=== PATIENT | female | born 1955 | race Caucasian/White ===

== ENCOUNTER 2019-12-29 06:45 | Outpatient (CLI) | payer OTHER, SELFPAY ==
[2019-12-29 07:37] LABS: Hemoglobin A1C 8.5 % (<5.7)
[2019-12-29 07:39] LABS: Alanine Aminotransferase 29 U/L (4-35); Aspartate Amino Transferase 23 U/L (14-36); Blood Urea Nitrogen 22 mg/dL (7-17); Calcium 9.2 mg/dL (8.4-10.2); Carbon Dioxide 26 mmol/L (22-30); Chloride 100 mmol/L (98-107); Cholesterol 164 mg/dL (0-200); Estimated Glomerular Filt Rate > 60; Glucose 194 mg/dL (65-105); HDL Direct 41 mg/dL; Potassium 4.3 mmol/L (3.4-5.0); Sodium 136 mmol/L (137-145); Triglycerides 119 mg/dL (<150)
[2019-12-29 07:49] LABS: LDL Cholesterol Direct 97 mg/dL
[2019-12-29 08:08] LABS: Free T4 Free Thyroxine 1.61 ng/mL (0.78-2.19)
== END 2019-12-29 06:46 | disposition home or self-care (01) ==
PROVIDERS: PCP Family Medicine; Visit Provider Family Medicine
DX: E78.2 Mixed hyperlipidemia (principal); E11.9 Type 2 diabetes mellitus without complications; E03.2 Hypothyroidism due to medicaments and other exogenous substances
CPT/HCPCS: 36415; 80048; 80061; 83036; 84439; 84443; 84450; 84460

== ENCOUNTER 2020-03-26 10:04 | Emergency (ER) | payer OTHER, SELFPAY ==
--- NOTE | 2020-03-26 10:15 | ED.NAVMDI ---
HPI - Nausea/Vomiting/Diarrhea General Chief complaint: Nausea/Vomiting/Diarrhea Stated complaint: nausea Time Seen by Provider: 03/26/20 10:15 Source: patient Mode of arrival: ambulatory Limitations: no limitations History of Present Illness HPI Narrative: Leanna Thorpe is a 64 yo female with a PMH of HTN, DM, high cholesterol, who comes to express care with complaints of nausea vomiting diarrhea. Diarrhea started last Saturday and then she developed nausea. She stopped taking her Metformin on Saturday night. Her dose of Metformin is 2000 mg a day, she does not check her blood sugar. Today and the express care her blood sugar was 296 and she is unable to eat because of the nausea. Related Data Home Medications Medication Instructions Recorded Confirmed atorvastatin 10 mg tablet 10 mg PO .COMPLEX 12/31/19 Allergies Allergy/AdvReac Type Severity Reaction Status Date / Time MEPERIDINE HCL AdvReac Unknown NAUSEA Uncoded 06/25/19 15:56 Review of Systems Review of Systems: Narrative: CONSTITUTIONAL: Denies fever, chills, sweats. EYES: Denies visual changes, redness, discharge. ENT: Denies rhinorrhea, congestion, sore throat, otalgia. CARDIOVASCULAR: Denies chest pain, palpitations, edema. RESPIRATORY: Denies dyspnea, wheezing, cough GASTROINTESTINAL: Denies abdominal pain,has nausea, vomiting, diarrhea. GENITOURINARY: Denies dysuria, hematuria, abnormal discharge SKIN: Denies rash or itching. NEUROLOGIC: Denies numbness, or focal weakness. PSYCHIATRIC: Denies anxiety or depression. FOR[facility]LY [facility], [facility] Past Medical History Medical History (Updated 03/26/20 @ 10:43 by Solange Rubin CNP) Essential (primary) hypertension Hepatitis C antibody test negative History of bone density study (~05/14/14) History of radioactive iodine thyroid ablation (~05/11/16) Iatrogenic hypothyroidism Metabolic syndrome Mixed hyperlipidemia MVP (mitral valve prolapse) Normal colonoscopy (~09/13/11) Type 2 diabetes mellitus without complication Family History Family History Mother Family history of elevated blood lipids Family history of malignant neoplasm Grandparent Carcinoma of colon, Onset Age: 66 Father Family history of diabetes mellitus in first degree relative, Onset Age: 78 Family history of coronary artery disease, Onset Age: 78 Patient's father is Family history of cardiovascular disease, Onset Age: 78 Family history of genetic disorder Diabetes mellitus, Onset Age: 78 Other Family history of malignant neoplasm of breast Family history of malignant neoplasm of male breast Social History Social History Smoking status: Former smoker Second hand tobacco smoke exposure: No Alcohol intake: current Gender identity (if verbalized by the patient): Female Comments At time of signature, I agree with nursing past medical, surgical, social and family history. There is no relevant family history pertinent to the presenting complaint. Exam Narrative: Exam Narrative: GENERAL: This is a well-nourished, well-developed patient, in mild distress. HEAD: normocephalic, atraumatic. EYES: Sclera clear/white. Vision is grossly intact. EARS: External ears normal, Hearing grossly intact. NOSE: External nose normal without nasal discharge, nares without redness, no rhinorrhea. THROAT: Mucous membranes moist, NECK: Neck supple, CARDIOVASCULAR: Regular rate and rhythm without murmurs, gallops, or rubs. RESPIRATORY: Clear to auscultation. Breath sounds equal bilaterally. No wheezes, rales, or rhonchi. GASTROINTESTINAL: Abdomen soft, SKIN: warm, intact with no suspicious lesions or rash, good texture and turgor. NEURO: awake, alert, and oriented to person, place and time. There were no obvious focal neurologic abnormalities. Steady gait EXTREMITIES: Normal range of motion. BACK:
[2020-03-26 10:16] VITALS: BP 153/77; PULSE 72; RESP 20; TEMP 37.1; O2SAT 100
[2020-03-26 10:20] LABS: Glucose Point of Care 296 (65-105)
== END 2020-03-26 10:45 | disposition home or self-care (01) ==
PROVIDERS: Emergency Provider Nurse Practitioner; PCP Family Medicine
DX: R11.2 Nausea with vomiting, unspecified (principal); T38.3X5A Adverse effect of insulin and oral hypoglycemic [antidiabetic] drugs, initial encounter; E11.9 Type 2 diabetes mellitus without complications; Z87.891 Personal history of nicotine dependence; I10 Essential (primary) hypertension; E78.2 Mixed hyperlipidemia; E78.00 Pure hypercholesterolemia, unspecified
CPT/HCPCS: 82948; 99213; G0463

== ENCOUNTER 2020-03-26 21:19 | Emergency (ER) | payer OTHER, SELFPAY ==
[2020-03-26 21:27] VITALS: BP 155/81; PULSE 80; RESP 18; TEMP 37.7; O2SAT 93
[2020-03-26] MEDS: SODIUM CHLORIDE 0.9% IV 1,000 ML 999 ML IV CONT ×2 (21:59→23:41)
[2020-03-26 22:01] VITALS: BP 109/51; PULSE 72; RESP 18; O2SAT 93
[2020-03-26 22:02] LABS: Basophils Percent Auto 0.3 % (0.2-1.2); Hemoglobin 13.4 g/dL (12.0-15.0); Immature Granulocyte Absolute 0.04 K/mm3 (0.00-0.031); Immature Granulocyte Percent A 0.7 % (0-0.5); Lymphocytes Absolute Auto 1.08 K/mm3 (0.9-3.2); Lymphocytes Percent Auto 17.9 % (18.3-44.2); Mean Corpuscular HGB Conc 35.3 g/dl (32-36); Mean Corpuscular Hemoglobin 29.5 pg (26-34); Mean Corpuscular Volume 83.7 fl (80-100); Mean Platelet Volume 9.7 fl (7.4-10.4); Monocytes Absolute Auto 0.5 K/mm3 (0.1-0.6); Monocytes Percent Auto 8.1 % (2.6-8.5); Neutrophils Absolute Auto 4.4 K/mm3 (1.3-6.7); Platelet Count Result 169 k/mm3 (150-375); Red Blood Count 4.54 M/mm3 (4.2-5.4); Red Cell Distribution Width 12.2 % (11.5-14.5); White Blood Count 6.1 K/mm3 (4.5-10.0)
[2020-03-26 22:15] LABS: Alanine Aminotransferase 43 U/L (4-35); Albumin Level 3.9 g/dL (3.5-5.1); Alkaline Phosphatase 84 U/L (38-126); Anion Gap 6 mmol/L (8-16); Aspartate Amino Transferase 37 U/L (14-36); Bilirubin,Total 1.3 mg/dL (0.2-1.3); Blood Urea Nitrogen 13 mg/dL (7-17); Calcium 8.8 mg/dL (8.4-10.2); Carbon Dioxide 31 mmol/L (22-30); Chloride 89 mmol/L (98-107); Estimated CRCL calculation 79 ml/min; Estimated Glomerular Filt Rate > 60; Glucose 197 mg/dL (65-105); Lipase 42 U/L (23-300); Potassium 3.5 mmol/L (3.4-5.0); Sodium 126 mmol/L (137-145)
--- NOTE | 2020-03-26 22:36 | ED.NAVMDI ---
HPI - Nausea/Vomiting/Diarrhea General Chief complaint: Nausea/Vomiting/Diarrhea Stated complaint: diarrhea, nausea, dehydrated Time Seen by Provider: 03/26/20 21:24 History of Present Illness HPI Narrative: Patient is a 64-year-old female who presents the ER with feeling unwell. Patient reports 1 week ago she began having diarrhea as well as nausea and vomiting. That then abated and she went through the week just feeling more fatigued. She has been unable to eat or drink due to lack of an appetite and feeling slightly nauseated but she said no additional vomiting. No known sick contacts. No loss of taste or smell. No runny nose/sore throat/productive cough. She is without dyspnea. Related Data Home Medications Medication Instructions Recorded Confirmed atorvastatin 10 mg tablet 10 mg PO .COMPLEX 12/31/19 Allergies Allergy/AdvReac Type Severity Reaction Status Date / Time MEPERIDINE HCL AdvReac Unknown NAUSEA Uncoded 03/26/20 21:51 Review of Systems Review of Systems: All systems reviewed & are unremarkable except as noted in HPI and below Constitutional: Constitutional: Reports chills, Reports fatigue and Denies fever(s) ENT: Denies nasal congestion and Denies sore throat Cardiovascular: Cardiovascular: Denies chest pain and Denies radiating jaw, neck or arm pain Respiratory: Respiratory: Denies cough, Denies dyspnea and Denies wheezing Gastrointestinal: Gastrointestinal: Denies abdominal pain, Reports diarrhea, Reports nausea and Reports vomiting Genitourinary: Genitourinary: Denies nocturia and Denies dysuria [facility] Past Medical History Medical History (Updated 03/26/20 @ 23:54 by Myles Neil MD) Essential (primary) hypertension Hepatitis C antibody test negative History of bone density study (~05/14/14) History of radioactive iodine thyroid ablation (~05/11/16) Iatrogenic hypothyroidism Metabolic syndrome Mixed hyperlipidemia MVP (mitral valve prolapse) Normal colonoscopy (~09/13/11) Type 2 diabetes mellitus without complication Surgical History Surgical History (Updated 03/26/20 @ 22:37 by Myles Neil MD) History of cholecystectomy Family History Family History Mother Family history of elevated blood lipids Family history of malignant neoplasm Grandparent Carcinoma of colon, Onset Age: 66 Father Family history of diabetes mellitus in first degree relative, Onset Age: 78 Family history of coronary artery disease, Onset Age: 78 Patient's father is Family history of cardiovascular disease, Onset Age: 78 Family history of genetic disorder Diabetes mellitus, Onset Age: 78 Other Family history of malignant neoplasm of breast Family history of malignant neoplasm of male breast Social History Social History Smoking status: Former smoker Second hand tobacco smoke exposure: No Alcohol intake: current Gender identity (if verbalized by the patient): Female Exam Narrative: Exam Narrative: GENERAL: Well-appearing, well-nourished, and in no acute distress. HEAD: Normocephalic, atraumatic. CHEST: Clear to auscultation. No respiratory distress. HEART: Regular rate and rhythm. Normal peripheral pulses. ABDOMEN: Soft, nontender, nondistended, normal active bowel sounds. EXTREMITIES: Normal range of motion. No edema. SKIN: Warm, dry, no rash. NEURO: Alert and oriented x3. PSYCH: Normal mood and affect. Course Course Emergency Course: Patient informed of results. Still feeling some fatigue and would like a second liter of fluid which I feel is fair. Will discharge home. Vital Signs Vital signs: Vital Signs Temperature 99.8 F H 03/26/20 21:27 Pulse Rate 80 03/26/20 21:27 Respiratory Rate 18 03/26/20 21:27 Blood Pressure 155/81 H 03/26/20 21:27 Pulse Oximetry 93 03/26/20 21:27 Temperature 99.8 F
--- NOTE | 2020-03-26 22:40 | PC.NURSE ---
Requested urine- patient said she could not. Told her will will have her try in a coupe minutes
[2020-03-26 23:05] VITALS: BP 141/56; PULSE 71; RESP 23; O2SAT 93
[2020-03-26 23:12] LABS: Add Urine Microscopic? NO; Appearance Urine Clear (Clear); Bilirubin Urine Negative (Negative); Blood Urine Negative (Negative); Color Urine Yellow (Yellow); Glucose Urine UA Negative (Negative); Ketones Urine Negative (Negative); Leukocyte Esterase Ur Negative LEU/UL (Negative); Nitrate Urine Negative (Negative); Protein Urine Negative (Negative); Urobilinogen Urine Negative mg/dL (<2.0)
[2020-03-27] MEDS: ONDANSETRON INJ 4 MG/2 ML VIAL IV PUSH (00:01)
[2020-03-27 00:03] VITALS: BP 142/74; PULSE 76; RESP 15; O2SAT 95
[2020-03-27 00:51] VITALS: BP 145/78; PULSE 76; RESP 18; O2SAT 98
--- NOTE | 2020-04-23 10:12 | PC.NURSE ---
NS fluids stopped at 0041 on 03/27/2020
== END 2020-03-27 00:40 | disposition home or self-care (01) ==
PROVIDERS: Emergency Provider Emergency Medicine; PCP Family Medicine
DX: B34.9 Viral infection, unspecified (principal); I10 Essential (primary) hypertension; E03.2 Hypothyroidism due to medicaments and other exogenous substances; E78.2 Mixed hyperlipidemia; E88.81 Metabolic syndrome and other insulin resistance; I34.1 Nonrheumatic mitral (valve) prolapse; E11.9 Type 2 diabetes mellitus without complications; Z87.891 Personal history of nicotine dependence; Z79.84 Long term (current) use of oral hypoglycemic drugs
CPT/HCPCS: 36415; 80053; 81003; 83690; 85025; 96361; 96374; 99284; J2405; J7030

== ENCOUNTER 2020-03-28 10:55 | Emergency (ER) | payer OTHER, SELFPAY ==
--- NOTE | ~2020-03-28 | CT_ITS ---
EXAMINATION: CT abdomen pelvis w con DATE: 03/28/2020 11:50 INDICATION: Diarrhea. Abdominal discomfort. TECHNIQUE: Computed tomography (CT) of the abdomen and pelvis was performed with 100 mL Omnipaque 350 intravenous contrast. Automated exposure control and iterative reconstruction technique were employe d. The dose-length product was 1236.38 mGy-cm. COMPARISON: CT abdomen and pelvis 05/17/2015 FINDINGS: The visualized portions of the lung bases demonstrate mild atelectasis. There is mild bronc hiectasis in right middle lobe. No pleural effusion. The heart size is normal. No pericardial effusio n. There is a small sliding hiatal hernia. The liver and spleen are normal. There are changes of chol ecystectomy. The pancreas, adrenal glands, and kidneys are normal. There is diverticulosis of the col on without evidence of diverticulitis. There are no dilated loops of bowel. The appendix is normal. T here are no pathologically enlarged lymph nodes. There is no free intraperitoneal fluid. There is mil d lumbar spondylosis. IMPRESSION: 1. Small sliding hiatal hernia. Reviewed, dictated and finalized at location A.
[2020-03-28 11:09] VITALS: BP 124/74; PULSE 71; RESP 18; TEMP 36.4; O2SAT 97
--- NOTE | 2020-03-28 11:10 | ED.GENADULT ---
HPI - General Adult General Chief complaint: Weakness Stated complaint: diarrhea, weak Time Seen by Provider: 03/28/20 11:04 Source: patient History of Present Illness HPI narrative: Patient is a 64 y/o female complaining of intermittent diarrhea for about 1 week. She state that she had approximately 5 episodes of diarrhea during last 24 hours. She states that her diarrhea is watery with no blood. She took Imodium which helped some with her diarrhea. She also has some lower abdominal discomfort which she attributed to diarrhea. She has no nausea or vomiting. She feel weak in general, although she is able to ambulate. Related Data Home Medications Medication Instructions Recorded Confirmed atorvastatin 10 mg tablet 10 mg PO .COMPLEX 12/31/19 Allergies Allergy/AdvReac Type Severity Reaction Status Date / Time MEPERIDINE HCL AdvReac Unknown NAUSEA Uncoded 03/28/20 11:53 Review of Systems Constitutional: Constitutional: Reports as per HPI, Denies chills, Denies fever(s), Denies headache(s), Reports malaise and Reports weakness Eyes: Eyes: Denies blurry vision ENT: Denies headache(s) and Denies neck pain Cardiovascular: Cardiovascular: Denies chest pain and Denies dyspnea Respiratory: Respiratory: Denies cough and Denies dyspnea Gastrointestinal: Gastrointestinal: Reports abdominal pain, Reports diarrhea, Denies nausea and Denies vomiting Genitourinary: Genitourinary: Denies hematuria and Denies dysuria Musculoskeletal: Musculoskeletal: Denies back pain and Denies neck pain Neurologic: Denies headache(s) and Denies weakness PMFSH Past Medical History Medical History Essential (primary) hypertension Hepatitis C antibody test negative History of bone density study (~05/14/14) History of radioactive iodine thyroid ablation (~05/11/16) Iatrogenic hypothyroidism Metabolic syndrome Mixed hyperlipidemia MVP (mitral valve prolapse) Normal colonoscopy (~09/13/11) Type 2 diabetes mellitus without complication Surgical History Surgical History History of cholecystectomy Family History Family History Mother Family history of elevated blood lipids Family history of malignant neoplasm Grandparent Carcinoma of colon, Onset Age: 66 Father Family history of diabetes mellitus in first degree relative, Onset Age: 78 Family history of coronary artery disease, Onset Age: 78 Patient's father is Family history of cardiovascular disease, Onset Age: 78 Family history of genetic disorder Diabetes mellitus, Onset Age: 78 Other Family history of malignant neoplasm of breast Family history of malignant neoplasm of male breast Social History Social History Smoking status: Former smoker Second hand tobacco smoke exposure: No Alcohol intake: current Gender identity (if verbalized by the patient): Female Exam Const: General: no acute distress and well developed Orientation/consciousness: oriented to person, oriented to place, oriented to time and patient oriented x3 HENMT: Head: normocephalic Ears: external ears normal General nose exam: Normal external nose present Eyes: General: appearance normal, both eyes and all related structures Conjunctivae: conjunctivae normal Neck: Neck: normal visual inspection and full ROM Chest: Chest palpation & inspection: normal inspection of the chest and no tenderness Resp: Effort & Inspection: normal respiratory effort Auscultation: clear to auscultation bilaterally Cardio: Rate: regular rate Rhythm: regular rhythm GI: GI Palp: No abdominal tenderness and Yes Soft to palpation Skin: General skin exam: normal color and turgor normal Neuro: General: oriented to person, oriented to place, oriented to time and patient orien
[2020-03-28 11:13] VITALS: PULSE 68
--- NOTE | 2020-03-28 11:14 | ECG_ITS ---
Measurements Intervals [place] Rate: 67 P: 56 MN: 141 QRS: -34 QRSD: 90 T: 2 QT: 357 QTc: 377 Interpretive Statements SINUS RHYTHM LEFT AXIS DEVIATION DELAYED PRECORDIAL R/S TRANSITION BORDERLINE T WAVE ABNORMALITY- INFERIOR LEADS BASELINE ARTIFACT- I, II, III, AVR, AVL, AVF, V4-V6 BORDERLINE ECG Electronically Signed On 03-28-2020 11:37:16 CDT by Dakota Kaminski D.O.
[2020-03-28] MEDS: SODIUM CHLORIDE 0.9% IV 1,000 ML 999 ML IV CONT (11:18)
[2020-03-28 11:21] LABS: Basophils Percent Auto 0.2 % (0.2-1.2); Hemoglobin 13.6 g/dL (12.0-15.0); Immature Granulocyte Absolute 0.06 K/mm3 (0.00-0.031); Lymphocytes Absolute Auto 1.17 K/mm3 (0.9-3.2); Lymphocytes Percent Auto 19.4 % (18.3-44.2); Mean Corpuscular HGB Conc 34.9 g/dl (32-36); Mean Corpuscular Hemoglobin 28.9 pg (26-34); Mean Platelet Volume 9.4 fl (7.4-10.4); Monocytes Absolute Auto 0.5 K/mm3 (0.1-0.6); Monocytes Percent Auto 8.8 % (2.6-8.5); Neutrophils Absolute Auto 4.3 K/mm3 (1.3-6.7); Neutrophils Percent Auto 70.6 % (45.5-73.1); Platelet Count Result 193 k/mm3 (150-375); Red Cell Distribution Width 12.1 % (11.5-14.5)
[2020-03-28 11:33] LABS: Alanine Aminotransferase 42 U/L (4-35); Alkaline Phosphatase 81 U/L (38-126); Anion Gap 10 mmol/L (8-16); Aspartate Amino Transferase 38 U/L (14-36); Bilirubin,Total 1.2 mg/dL (0.2-1.3); Blood Urea Nitrogen 12 mg/dL (7-17); Calcium 8.8 mg/dL (8.4-10.2); Carbon Dioxide 28 mmol/L (22-30); Chloride 93 mmol/L (98-107); Estimated CRCL calculation 70 ml/min; Estimated Glomerular Filt Rate > 60; Glucose 192 mg/dL (65-105); Potassium 3.6 mmol/L (3.4-5.0); Sodium 131 mmol/L (137-145)
[2020-03-28 12:14] VITALS: BP 127/62; PULSE 61; RESP 18; O2SAT 100
--- NOTE | 2020-03-28 12:22 | PC.NURSE ---
Patient ambulated to bathroom without difficulty and in no distress
[2020-03-28 22:56] LABS: SARS-CoV-2 RNA PCR Negative
== END 2020-03-28 13:18 | disposition home or self-care (01) ==
PROVIDERS: Emergency Provider Emergency Medicine; PCP Family Medicine
DX: K52.9 Noninfective gastroenteritis and colitis, unspecified (principal); R53.1 Weakness; Z20.828 Contact with and (suspected) exposure to other viral communicable diseases; I10 Essential (primary) hypertension; E03.2 Hypothyroidism due to medicaments and other exogenous substances; E88.81 Metabolic syndrome and other insulin resistance; E78.2 Mixed hyperlipidemia; I34.1 Nonrheumatic mitral (valve) prolapse; E11.9 Type 2 diabetes mellitus without complications; Z79.84 Long term (current) use of oral hypoglycemic drugs; Z87.891 Personal history of nicotine dependence
CPT/HCPCS: 36415; 74177; 80053; 85025; 87635; 93005; 96360; 99284; C9803; J7030; Q9967; U0003

== ENCOUNTER 2020-03-31 07:16 | Emergency (ER) | payer OTHER, SELFPAY ==
[2020-03-31 07:24] VITALS: BP 134/71; PULSE 69; RESP 16; TEMP 36.4; O2SAT 96
[2020-03-31] MEDS: SODIUM CHLORIDE 0.9% IV 1,000 ML 999 ML IV CONT (07:35)
[2020-03-31 07:37] LABS: Basophils Percent Auto 0.2 % (0.2-1.2); Hematocrit 36.7 % (37.0-47.0); Hemoglobin 13.1 g/dL (12.0-15.0); Immature Granulocyte Percent A 1.1 % (0-0.5); Lymphocytes Percent Auto 10.9 % (18.3-44.2); Mean Corpuscular HGB Conc 35.7 g/dl (32-36); Mean Corpuscular Hemoglobin 29.3 pg (26-34); Mean Corpuscular Volume 82.1 fl (80-100); Mean Platelet Volume 8.9 fl (7.4-10.4); Monocytes Absolute Auto 0.7 K/mm3 (0.1-0.6); Monocytes Percent Auto 7.1 % (2.6-8.5); Neutrophils Absolute Auto 7.4 K/mm3 (1.3-6.7); Neutrophils Percent Auto 80.7 % (45.5-73.1); Platelet Count Result 217 k/mm3 (150-375); Red Blood Count 4.47 M/mm3 (4.2-5.4); Red Cell Distribution Width 12.1 % (11.5-14.5); White Blood Count 9.2 K/mm3 (4.5-10.0)
--- NOTE | 2020-03-31 07:38 | PC.NURSE ---
Patient unable to give urine sample at this time, patient declines straight cath.
[2020-03-31] MEDS: PROMETHAZINE HCL 25 MG/ML AMPUL 12.5 MG IV PUSH (07:45)
[2020-03-31 07:48] LABS: Alanine Aminotransferase 49 U/L (4-35); Albumin Level 3.6 g/dL (3.5-5.1); Alkaline Phosphatase 91 U/L (38-126); Anion Gap 10 mmol/L (8-16); Aspartate Amino Transferase 44 U/L (14-36); Bilirubin,Total 1.9 mg/dL (0.2-1.3); Blood Urea Nitrogen 13 mg/dL (7-17); Calcium 8.4 mg/dL (8.4-10.2); Carbon Dioxide 31 mmol/L (22-30); Chloride 91 mmol/L (98-107); Estimated CRCL calculation 70 ml/min; Estimated Glomerular Filt Rate > 60; Glucose 189 mg/dL (65-105); Lipase 20 U/L (23-300); Potassium 3.6 mmol/L (3.4-5.0); Sodium 132 mmol/L (137-145)
[2020-03-31 08:08] LABS: Monoscreen Negative (Negative); Negative Monotest Control Negative (Negative); Positive Monotest Control Positive (Positive)
[2020-03-31 09:01] LABS: Add Urine Microscopic? YES; Appearance Urine Clear (Clear); Bilirubin Urine Negative (Negative); Blood Urine Negative (Negative); Color Urine Yellow (Yellow); Glucose Urine UA Negative (Negative); Ketones Urine Trace mg/dL (Negative); Leukocyte Esterase Ur Negative LEU/UL (Negative); Nitrate Urine Negative (Negative); Protein Urine Negative (Negative); RBC Urine 0-2 /hpf (0-2); Specific Grav Ur 1.006 (1.001-1.035); Squamous Epithelial Cell Urine Rare /hpf (Few); Urobilinogen Urine Negative mg/dL (<2.0)
--- NOTE | 2020-03-31 09:25 | ED.NAVMDI ---
HPI - Nausea/Vomiting/Diarrhea General Chief complaint: Nausea/Vomiting/Diarrhea Stated complaint: n/v/d, weakness Time Seen by Provider: 03/31/20 07:26 History of Present Illness HPI Narrative: Patient is a 64-year-old female who presents ER with nausea and diarrhea. Patient has been seen twice for this in the last week. She has had unremarkable lab work and an unremarkable CT scan. She reports that she just has persistent nausea and feels like she cannot eat. She will take Imodium which will slow down her diarrhea will recur. She reports 5 stools yesterday. Occasional dizziness when standing up. No fevers or chills or sweats. No abdominal pain or urinary symptoms. Related Data Home Medications Medication Instructions Recorded Confirmed atorvastatin 10 mg tablet 10 mg PO .COMPLEX 12/31/19 Allergies Allergy/AdvReac Type Severity Reaction Status Date / Time MEPERIDINE HCL AdvReac Unknown NAUSEA Uncoded 03/31/20 07:31 Review of Systems Review of Systems: All systems reviewed & are unremarkable except as noted in HPI and below Constitutional: Constitutional: Denies chills, Reports fatigue and Denies fever(s) Gastrointestinal: Gastrointestinal: Denies abdominal pain, Reports diarrhea, Reports nausea and Denies vomiting PMFSH Past Medical History Medical History Essential (primary) hypertension Hepatitis C antibody test negative History of bone density study (~05/14/14) History of radioactive iodine thyroid ablation (~05/11/16) Iatrogenic hypothyroidism Metabolic syndrome Mixed hyperlipidemia MVP (mitral valve prolapse) Normal colonoscopy (~09/13/11) Type 2 diabetes mellitus without complication Surgical History Surgical History History of cholecystectomy Family History Family History Mother Family history of elevated blood lipids Family history of malignant neoplasm Grandparent Carcinoma of colon, Onset Age: 66 Father Family history of diabetes mellitus in first degree relative, Onset Age: 78 Family history of coronary artery disease, Onset Age: 78 Patient's father is Family history of cardiovascular disease, Onset Age: 78 Family history of genetic disorder Diabetes mellitus, Onset Age: 78 Other Family history of malignant neoplasm of breast Family history of malignant neoplasm of male breast Social History Social History Smoking status: Former smoker Second hand tobacco smoke exposure: No Alcohol intake: current Gender identity (if verbalized by the patient): Female Exam Narrative: Exam Narrative: GENERAL: Fatigued-appearing, well-nourished, and in no acute distress. HEAD: Normocephalic, atraumatic. ENT: Mucous membranes moist. CHEST: Clear to auscultation. No respiratory distress. HEART: Regular rate and rhythm. Normal peripheral pulses. ABDOMEN: Soft, nontender, nondistended. EXTREMITIES: Normal range of motion. No edema. NEURO: Alert and oriented x3. PSYCH: Normal mood and affect. Course Course Emergency Course: Unremarkable evaluation. Still with mild transaminitis. Likely indicates viral GI illness. Patient has increased neutrophil percentage but no leukocytosis. Given persistent symptoms will start on Cipro Flagyl for home and give her some Phenergan. Patient ambulatory without issue here. Could not provide stool sample. Discussed with Dr. Glass who is in agreement with tx plan. Request to add on omeprazole 40mg. Vital Signs Vital signs: Vital Signs Temperature 97.5 F L 03/31/20 07:24 Pulse Rate 69 03/31/20 07:24 Respiratory Rate 16 03/31/20 07:24 Blood Pressure 134/71 03/31/20 07:24 Pulse Oximetry 96 03/31/20 07:24 Temperature 97.5 F L 03/31/20 07:24 Pulse Rate 72 03/31/20 09:32 Respiratory
[2020-03-31 09:32] VITALS: BP 105/57; PULSE 72; RESP 18; O2SAT 93
--- NOTE | 2020-03-31 09:34 | PC.NURSE ---
Patient walked to bathroom without difficulty and in no distress. patient reports that the nausea medication did help. Patient given water to drink at this time.
== END 2020-03-31 10:11 | disposition home or self-care (01) ==
PROVIDERS: Emergency Provider Emergency Medicine; PCP Family Medicine
DX: K52.9 Noninfective gastroenteritis and colitis, unspecified (principal); I10 Essential (primary) hypertension; E03.2 Hypothyroidism due to medicaments and other exogenous substances; E88.81 Metabolic syndrome and other insulin resistance; E78.2 Mixed hyperlipidemia; I34.1 Nonrheumatic mitral (valve) prolapse; E11.9 Type 2 diabetes mellitus without complications; Z87.891 Personal history of nicotine dependence; Z79.84 Long term (current) use of oral hypoglycemic drugs
CPT/HCPCS: 36415; 80053; 81001; 83690; 85025; 86308; 96361; 96374; 99284; J2550; J7030

== ENCOUNTER 2020-04-02 08:41 | Inpatient (IN) | payer OTHER, MEDICARE, SELFPAY ==
--- NOTE | ~2020-04-02 | US_ITS ---
EXAMINATION: US right upper quadrant EXAM DATE: 04/03/2020 08:56 INDICATION: Elevated liver enzymes . TECHNIQUE: Multiple grayscale and Doppler images of the abdomen right upper quadrant were obtained (b y a technologist who performed the scan) and subsequently reviewed. Correlation is made to abdomen pe lvis CT 03/28/2020. FINDINGS: The pancreatic head and body are normal in appearance. The pancreatic tail is not visualized. There is echogenic liver parenchyma with poor penetration, hepatic steatosis. There are no focal liver le sions identified. There is no evidence of intrahepatic biliary duct dilation. Portal venous flow w as seen in the hepatopedal, normal direction and has normal Doppler waveform. No right-sided hydrone phrosis. Common bile duct measures 5 mm, which is normal. The gallbladder fossa is unremarkable. IMPRESSION: 1. Hepatic steatosis. Reviewed, dictated and finalized at location A. IMPRESSION: 1. Hepatic steatosis.
[2020-04-02 08:55] VITALS: BP 158/79; PULSE 64; RESP 18; TEMP 36.4; O2SAT 93
--- NOTE | 2020-04-02 09:01 | ED.NAVMDI ---
HPI - Nausea/Vomiting/Diarrhea General Chief complaint: Abdominal Pain Stated complaint: some kind of gi thing Time Seen by Provider: 04/02/20 08:53 Source: patient Mode of arrival: ambulatory Limitations: no limitations History of Present Illness HPI Narrative: Patient is a 64-year-old female complaining of nausea vomiting diarrhea x1 week but states that it started 2 weeks ago subsided and now it is worse. Patient describes her diarrhea as loose watery nonbloody. Patient currently denies any vomiting but nauseated. Patient denies any abdominal pain but had abdominal cramping earlier after going the bathroom. Denies any fever. Patient states she is seeing her doctor for this and was advised that she needs to be admitted. Denies any recent use of antibiotics or hospitalization. Related Data Home Medications Medication Instructions Recorded Confirmed atorvastatin 10 mg tablet 10 mg PO .COMPLEX 12/31/19 Allergies Allergy/AdvReac Type Severity Reaction Status Date / Time MEPERIDINE HCL AdvReac Unknown NAUSEA Uncoded 03/31/20 07:31 Review of Systems Review of Systems: All systems reviewed & are unremarkable except as noted in HPI and below Constitutional: Constitutional: Denies body ache(s), Denies chills, Denies excessive sweating, Denies fatigue, Denies fever(s), Denies headache(s), Denies lethargy, Denies malaise, Denies weakness and Denies weight loss Eyes: Eyes: Denies blurry vision, Denies change in vision and Denies loss of vision ENT: Denies dizziness, Denies ear discharge, Denies headache(s), Denies lip swelling, Denies epistaxis, Denies nasal congestion, Denies neck pain, Denies throat swelling and Denies tongue swelling Cardiovascular: Cardiovascular: Denies chest pain, Denies chest pain at rest, Denies chest pain with activity, Denies diaphoresis, Denies rapid heart rate, Denies edema, Denies irregular heart rhythm, Denies lightheadedness, Denies palpitations, Denies dyspnea and Denies dyspnea on exertion Respiratory: Respiratory: Denies chest congestion, Denies cough, Denies hemoptysis, Denies dyspnea and Denies dyspnea on exertion Gastrointestinal: Gastrointestinal: Denies abdominal pain, Denies melena, Denies hematochezia and Denies hematemesis Musculoskeletal: Musculoskeletal: Denies abnormal gait, Denies deformity, Denies joint swelling, Denies limited range of motion, Denies neck pain and Denies numbness Neurologic: Denies Abnormal speech present, Denies abnormal gait, Denies confusion, Denies dizziness, Denies headache(s), Denies focal weakness, Denies loss of vision, Denies numbness, Denies Other visual disturbances, Denies Sensory deficit (Neuro) and Denies weakness Psychiatric: Psychiatric: Denies confusion, Denies depression, Denies auditory hallucinations, Denies homicidal ideation and Denies suicidal ideation Endocrine: Endocrine: Denies cold intolerance, Denies excessive sweating, Denies fatigue, Denies heat intolerance and Denies palpitations Hematologic/Lymphatic: Hematologic/Lymphatic: Denies easy bleeding and Denies easy bruising Allergic/Immunologic: Allergic/Immunologic: Denies lip swelling, Denies throat swelling and Denies tongue swelling PMFSH Past Medical History Medical History Essential (primary) hypertension Hepatitis C antibody test negative History of bone density study (~05/14/14) History of radioactive iodine thyroid ablation (~05/11/16) Iatrogenic hypothyroidism Metabolic syndrome Mixed hyperlipidemia MVP (mitral valve prolapse) Normal colonoscopy (~09/13/11) Type 2 diabetes mellitus without complication Surgical History Surgical History History of cholecystectomy Family History Family History Mother Family history of elevated blood lipids Family history of malignant neoplasm Grandparent Carcinoma of colo
[2020-04-02] MEDS: SODIUM CHLORIDE 0.9% IV 1,000 ML 999 ML IV CONT (09:11)
[2020-04-02] MEDS: ONDANSETRON INJ 4 MG/2 ML VIAL IV PUSH (09:11)
[2020-04-02 09:14] LABS: Basophils Percent Auto 0.3 % (0.2-1.2); Eosinophils Percent Auto 0.1 % (0-4.4); Hematocrit 40.6 % (37.0-47.0); Immature Granulocyte Absolute 0.14 K/mm3 (0.00-0.031); Immature Granulocyte Percent A 1.8 % (0-0.5); Lymphocytes Absolute Auto 1.39 K/mm3 (0.9-3.2); Lymphocytes Percent Auto 17.8 % (18.3-44.2); Mean Corpuscular HGB Conc 34.5 g/dl (32-36); Mean Corpuscular Hemoglobin 29.4 pg (26-34); Mean Corpuscular Volume 85.1 fl (80-100); Mean Platelet Volume 8.8 fl (7.4-10.4); Monocytes Absolute Auto 0.6 K/mm3 (0.1-0.6); Monocytes Percent Auto 7.2 % (2.6-8.5); Neutrophils Absolute Auto 5.7 K/mm3 (1.3-6.7); Neutrophils Percent Auto 72.8 % (45.5-73.1); Platelet Count Result 299 k/mm3 (150-375); Red Blood Count 4.77 M/mm3 (4.2-5.4); Red Cell Distribution Width 12.2 % (11.5-14.5); White Blood Count 7.8 K/mm3 (4.5-10.0)
[2020-04-02 09:22] LABS: Alanine Aminotransferase 52 U/L (4-35); Albumin Level 3.8 g/dL (3.5-5.1); Alkaline Phosphatase 100 U/L (38-126); Anion Gap 11 mmol/L (8-16); Aspartate Amino Transferase 40 U/L (14-36); Bilirubin,Total 1.1 mg/dL (0.2-1.3); Blood Urea Nitrogen 13 mg/dL (7-17); Calcium 8.5 mg/dL (8.4-10.2); Carbon Dioxide 30 mmol/L (22-30); Chloride 95 mmol/L (98-107); Estimated CRCL calculation 69 ml/min; Estimated Glomerular Filt Rate > 60; Glucose 155 mg/dL (65-105); Lipase 54 U/L (23-300); Potassium 3.2 mmol/L (3.4-5.0); Sodium 136 mmol/L (137-145)
[2020-04-02 11:18] VITALS: BP 127/61; PULSE 61; RESP 18; O2SAT 93
[2020-04-02] MEDS: POTASSIUM CHLORIDE 20 MEQ PACKET (FOR LIQUID) 40 MEQ PO (11:19)
[2020-04-02 12:10] LABS: Add Urine Microscopic? YES; Appearance Urine Clear (Clear); Bacteria Urine Trace /hpf; Bilirubin Urine Negative (Negative); Blood Urine Negative (Negative); Color Urine Yellow (Yellow); Glucose Urine UA Negative (Negative); Ketones Urine Trace mg/dL (Negative); Leukocyte Esterase Ur Trace LEU/UL (Negative); Mucus Urine Rare /lpf; Nitrate Urine Negative (Negative); Protein Urine Negative (Negative); Squamous Epithelial Cell Urine Rare /hpf (Few); Urobilinogen Urine Negative mg/dL (<2.0); WBC Urine 0-3 /hpf
--- NOTE | 2020-04-02 12:25 | PC.NURSE ---
This patient, Leanna Thorpe, was admitted to [facility] Surg Room 321-. Patient/family oriented to hospital policies and general routines including ID bracelet, bed and alarms, visiting hours, pain management, procedures, bathroom and other care routines, personal items, smoking policy, room service/diet, and visiting hours Patient/Family are encouraged to report perceived risks to care and to ask questions if they do not understand what they are told or what they should do.
[2020-04-02 12:32] VITALS: BMI 36.7
[2020-04-02 12:36] VITALS: BP 144/71; PULSE 64; RESP 16; TEMP 36.5; O2SAT 93; BMI 36.1
[2020-04-02] MEDS: KCL 20 MEQ/D5/0.45% SOD CHL 1,000 ML 125 ML IV CONT (12:42)
[2020-04-02 14:00] VITALS: BP 140/74; PULSE 60; RESP 16; TEMP 37.1; O2SAT 96
[2020-04-02] MEDS: METOCLOPRAMIDE HCL INJ 10 MG/2 ML VIAL IV PUSH (14:31)
--- NOTE | 2020-04-02 15:55 | PM.IMHP ---
H&P: HPI History of Present Illness Date/Time: 04/02/20 15:55 Chief complaint: dehydration/n/v/diarrhea Narrative: Leanna Thorpe is a 64 year old female Who has been feeling ill for at least 2 weeks now. I see a note in the system from 03/26/2020 where the patient had nausea vomiting diarrhea. She tells me this is been going on for about 2 weeks now. She said this past Saturday she did check for COVID and was found to be negative. Patient stated she has been on metformin but has been many years since she has started that. Has not typically had any problems with the metformin. Patient was seen in the [facility] on 03/26/2021 her blood sugar was 296 and was nauseated did not take her metformin. Patient has had elevated liver enzymes in the past due to her statin. The patient was also seen in the emergency room here by Dr. Neil on 03/26/2020 and was diagnosed with acute viral syndrome. She was prescribed Zofran at that time. The patient then came back to ER on 03/28/2020 where she was having some intermittent diarrhea. She has not had any sick contacts. She is also having some lower abdominal discomfort. Patient tells me she did notice any blood in her stool but the last couple days they have been darker. The patient was seen again in the emergency room on 03/31/2020 with nausea and diarrhea. Her labs were unremarkable at that time and had a unremarkable CT scan according to the ED records. She was taking some Imodium which did slow down the diarrhea some. However the patient has been having fiber more stools a day. And sometimes having accidents due to not being able to make it to the bathroom on time. She denies being out of the country are being around any other sick contacts. She denies the possibility that this could be food poisoning. As she has not been out to eat. The patient has been feeling weak and dizzy. She stated that she has lost 10 lb in 2 weeks. She has been afebrile. The patient was then started on Cipro and Flagyl at that time. She is also given promethazine as well for nausea vomiting. The patient stated that the Zofran was not working and that the Flagyl and Cipro just made her feel worse. Patient says that her stomach settles down but then when she eats or drinks something it makes it worse. The patient has not had a colonoscopy in approximately 8 years. The patient return to the emergency room today. The patient is just nauseated today but no vomiting. She has abdominal cramping prior to going to the bathroom. Patient's past him was found to be 3.2 today she had IV fluids with potassium in and had potassium replacement. Her sodium is slightly low at 136. Blood sugar 155. Her AST is 40 and ALT is 52 which is a about stable from what it has been. She has not been able to take her medications due to the nausea. Her CT scan of the abdomen and pelvis from 03/28/2020 which just read as a small hiatal hernia. GI specialist has been consulted. It is Dr. melgoza. IV fluids were ordered in the emergency room as well as Zofran and potassium. Patient was admitted as observation on 04/02/2020 Review of Systems Review of Systems: All systems reviewed & are unremarkable except as noted in HPI and below Constitutional: Constitutional: Reports as per HPI and Reports no additional constitutional complaints Eyes: Eyes: Reports as per HPI and Reports no additional eye complaints ENT: Reports system reviewed and no additional complaints, except as documented and Reports Normal hearing present Cardiovascular: Cardiovascular: Reports no additional cardiovascular complaints Respiratory: Respiratory: Reports no additional respiratory complaints and Reports no additional respiratory complaints Gastrointestinal: Gastrointestinal: Reports as per HPI and Reports no additional gastrointestinal complaints Musculoskeletal: Musculoskeletal: Reports no additional musculoskeletal complaints Integumentary/Breasts: Skin/Breast: Repo
[2020-04-02 17:29] LABS: Glucose Point of Care 178 (65-105)
[2020-04-02] MEDS: METOCLOPRAMIDE HCL INJ 10 MG/2 ML VIAL 5 MG IV PUSH ×2 (18:33→23:32)
[2020-04-02 20:00] VITALS: PULSE 55
[2020-04-02] MEDS: PANTOPRAZOLE SODIUM IV 40 MG VIAL IV PUSH (20:17)
[2020-04-02 20:26] LABS: Glucose Point of Care 188 (65-105)
[2020-04-02 22:00] VITALS: BP 139/52; PULSE 56; RESP 18; TEMP 36.8; O2SAT 93
[2020-04-03] VITALS (9 sets, daily range): BP systolic 139–162; BP diastolic 68–82; PULSE 51–64; RESP 16–20; TEMP 36.3–36.9; O2SAT 92–96
[2020-04-03] MEDS: METOCLOPRAMIDE HCL INJ 10 MG/2 ML VIAL 5 MG IV PUSH ×2 (05:59→12:01)
[2020-04-03] MEDS: LEVOTHYROXINE SODIUM INJ 100 MCG/5 ML VIAL 62.5 MCG IV PUSH (05:59)
[2020-04-03 06:25] LABS: Basophils Percent Auto 0.3 % (0.2-1.2); Eosinophils Percent Auto 0.3 % (0-4.4); Hematocrit 35.4 % (37.0-47.0); Hemoglobin 11.9 g/dL (12.0-15.0); Immature Granulocyte Absolute 0.19 K/mm3 (0.00-0.031); Immature Granulocyte Percent A 3.1 % (0-0.5); Lymphocytes Absolute Auto 1.83 K/mm3 (0.9-3.2); Lymphocytes Percent Auto 29.9 % (18.3-44.2); Mean Corpuscular HGB Conc 33.6 g/dl (32-36); Mean Corpuscular Hemoglobin 28.9 pg (26-34); Mean Corpuscular Volume 85.9 fl (80-100); Mean Platelet Volume 8.4 fl (7.4-10.4); Monocytes Absolute Auto 0.5 K/mm3 (0.1-0.6); Monocytes Percent Auto 8.8 % (2.6-8.5); Neutrophils Absolute Auto 3.5 K/mm3 (1.3-6.7); Neutrophils Percent Auto 57.6 % (45.5-73.1); Platelet Count Result 279 k/mm3 (150-375); Red Blood Count 4.12 M/mm3 (4.2-5.4); Red Cell Distribution Width 12.2 % (11.5-14.5); White Blood Count 6.1 K/mm3 (4.5-10.0)
[2020-04-03 06:43] LABS: Alanine Aminotransferase 60 U/L (4-35); Albumin Level 2.9 g/dL (3.5-5.1); Alkaline Phosphatase 85 U/L (38-126); Anion Gap 7 mmol/L (8-16); Aspartate Amino Transferase 78 U/L (14-36); Bilirubin,Total 0.8 mg/dL (0.2-1.3); Blood Urea Nitrogen 10 mg/dL (7-17); CRP 3.6 mg/dL (<1.0); Calcium 8.1 mg/dL (8.4-10.2); Carbon Dioxide 28 mmol/L (22-30); Chloride 101 mmol/L (98-107); Estimated CRCL calculation 70 ml/min; Estimated Glomerular Filt Rate > 60; Glucose 134 mg/dL (65-105); Magnesium 2.4 mg/dL (1.6-2.3); Potassium 3.6 mmol/L (3.4-5.0); Sodium 136 mmol/L (137-145)
[2020-04-03 06:51] LABS: Hemoglobin A1C 7.8 % (<5.7)
[2020-04-03 07:09] LABS: Lactic Acid Reflex 0.8 mmol/L (0.7-2.1)
[2020-04-03 07:39] LABS: Hepatitis B Surface Antigen Negative (Negative)
[2020-04-03 07:45] LABS: HAV RESULT Negative (Negative); Hepatitis B Core IgM Result Negative (Negative)
[2020-04-03 07:57] LABS: Hepatitis C Virus Antibody Negative (Negative)
[2020-04-03] MEDS: LACTATED RINGERS 1,000 ML 70 ML IV CONT ×2 (08:12→22:16)
[2020-04-03] MEDS: PANTOPRAZOLE SODIUM IV 40 MG VIAL IV PUSH (08:21)
--- NOTE | 2020-04-03 09:26 | WPDGICN ---
Assessment and Plan Assessment and plan (1) Nausea vomiting and diarrhea: Code(s): R11.2 - Nausea with vomiting, unspecified; R19.7 - Diarrhea, unspecified Status: Acute Assessment and Plan: Patient with significant nausea and diarrhea. Most consistent with infectious etiology. Viral infection not excluded. Plan is for stool cultures. IV fluid rehydration as it appears she has become dehydrated. Empiric antibiotics may be of some benefit. Will give Lomotil to control the diarrhea. GI endoscopy will be deferred unless symptoms fail to improve in a reasonable fashion. We will follow with you. (2) Type 2 diabetes mellitus without complication: Code(s): E11.9 - Type 2 diabetes mellitus without complications Status: Chronic (3) Essential (primary) hypertension: Code(s): I10 - Essential (primary) hypertension Status: Acute (4) Iatrogenic hypothyroidism: Code(s): E03.2 - Hypothyroidism due to medicaments and other exogenous substances Status: Chronic (5) Elevated LFTs: Code(s): R79.89 - Other specified abnormal findings of blood chemistry Status: Acute Assessment and Plan: Elevated liver function test appear to be nonspecifically elevated with acute illness. Plan is to check hepatitis serologies. Continue monitor LFTs. Patient has a previous history of cholecystectomy and I understand gallbladder ultrasound is in progress with review results when available. GI Consult Note Consult date/time: 04/03/20 09:26 HPI: Leanna Thorpe is a 64 year old female I am asked to see at the request of the hospitalist service. Patient reports 2 week history of illness. She has had significant nausea along with significant profuse diarrhea over the last 2 weeks. This progressed to the point where it is watery in she has poor control. She has been to express care as well as her primary care service on several occasions. COVID testing was performed in excluded. She was given empiric trial of Cipro and Flagyl which she took and Saturday. However because of worsening symptoms she presented the emergency room and was admitted with dehydration. Patient denies any bleeding or weight loss. She denies any fever. She has some modest lower abdominal discomfort. There has been no recent change in her medications. She has had no recent travel. No exotic intake. She has no known sick contacts. Past medical history is significant for diabetes and elevated cholesterol. Medications include metformin. She did obtain some relief with Imodium as an outpatient. Since admission hospitals been given a trial of Reglan. She has been unable to maintain any significant oral intake. Review of Systems Review of Systems: All systems reviewed & are unremarkable except as noted in HPI and below PMFSH Past Medical History Medical History Essential (primary) hypertension Hepatitis C antibody test negative History of bone density study (~05/14/14) History of radioactive iodine thyroid ablation (~05/11/16) Iatrogenic hypothyroidism Metabolic syndrome Mixed hyperlipidemia MVP (mitral valve prolapse) repeat echo was negative for mitral valve prolapse Normal colonoscopy (~09/13/11) Palpitation Person under investigation for COVID-19 found to be negative Type 2 diabetes mellitus without complication Surgical History Surgical History History of cholecystectomy S/P tonsillectomy and adenoidectomy Family History Family History (Updated 04/02/20 @ 16:16 by Cortney Lindsay NP) Mother Family history of elevated blood lipids Family history of malignant neoplasm Grandparent Carcinoma of colon, Onset Age: 66 Father Family history of diabetes mellitus in first degree relative, Onset Age: 78 Family history of coronary artery disease, Onset Age: 78 Patie
[2020-04-03 10:21] LABS: Glucose Point of Care 141 (65-105)
[2020-04-03 10:21] LABS: Glucose Point of Care 135 (65-105)
[2020-04-03 10:29] LABS: IFOB Positive Control Positive; Immunochemical Fecal Occult Bl Negative (N)
[2020-04-03 12:37] LABS: Glucose Point of Care 166 (65-105)
[2020-04-03] MEDS: ATORVASTATIN 10 MG TABLET PO (12:53)
[2020-04-03] MEDS: lisinopriL 20 MG TABLET PO (12:53)
--- NOTE | 2020-04-03 14:27 | PM.IMPN ---
Progress Note: A&P Assessment and Plan (1) Nausea vomiting and diarrhea: Code(s): R11.2 - Nausea with vomiting, unspecified; R19.7 - Diarrhea, unspecified Status: Acute Assessment and Plan: this has been going on for at least 2 weeks. ? infectious viral, bacterial. ? IBS or Inflammatory bowel ? side effect of medications IV fluids await stool culture Oral cipro and flagyl on hold STATIN AND METFORMIN ON HOLD (2) Hypokalemia: Code(s): E87.6 - Hypokalemia Status: Acute Assessment and Plan: Replace as necessary. (3) Type 2 diabetes mellitus without complications: Code(s): E11.9 - Type 2 diabetes mellitus without complications Status: Acute Assessment and Plan: Accu-Cheks AC and HS with sliding scale insulin. hold metformin, pt is not eating much (4) Mixed hyperlipidemia: Code(s): E78.2 - Mixed hyperlipidemia Status: Acute Assessment and Plan: patient's liver enzymes are mildly elevated. HOLD STATIN. HEP panel is negative (5) Hypothyroidism, iatrogenic: Code(s): E03.2 - Hypothyroidism due to medicaments and other exogenous substances Status: Acute Assessment and Plan: continue oral levothyroixine (6) Essential (primary) hypertension: Code(s): I10 - Essential (primary) hypertension Status: Acute Assessment and Plan: Restart pts Bp medications Subjective Date/time seen: 04/03/20 14:27 Interval history: Pt has been to ED with nausea and vomiting and diarrhea. Pt had labs and ct abdo which were unremarkable. Pts LFts are high ferrtin and crp are high. protein and albumin are low. mg is high. hbaic is over 7. Pt states she is having some loose stool today and mild lower abdominal cramps but nausea is better. Pt denies history of foreign travel or sick contacts. Pt denies IBS or Inflammatory bowel. Pt has a history of DM, HLD and hypothyroidism. Pt seen by GI today. Pt was tested for covid and was found to be negative. Review of Systems Review of Systems: All systems reviewed & are unremarkable except as noted in HPI and below Exam Const: Other: unwell tired dry tongue Chest: Chest palpation & inspection: normal inspection of the chest Resp: Effort & Inspection: normal respiratory effort Auscultation: clear to auscultation bilaterally Percussion: percussion normal Cardio: Palpation: normal PMI Rate: regular rate Rhythm: regular rhythm Heart sounds: S1 normal heart sound present and S2 normal heart sound present Peripheral pulses: Peripheral pulses 2+ throughout GI: Inspection: normal to inspection Neuro: General: oriented to person, oriented to place, oriented to time and patient oriented x3 Cranial nerves: Yes Equal, round and reactive pupils present and Yes Normal hearing present Cognition (Neuro): normal cognition Speech: normal speech Gait exam (Neuro): Normal gait present Motor exam (neuro): 5/5 motor strength present throughout Sensory Exam: normal sensation Extrem: General: normal to inspection Right upper extremity: normal to inspection Left upper extremity: normal to inspection Right lower extremity: normal to inspection Left lower extremity: normal to inspection Psych: Appearance: grossly normal Mental Status: mental status grossly normal Speech and movement: Normal speech and movement present Affect: normal affect Attitude: cooperative Thought process: Normal thought process present Insight: Good insight present (Psych) Judgement: Good judgement present (Psych) Objective Data Vital Signs Vital Signs: Vital Signs - 24 hr 04/02/20 20:00 04/02/20 22:00 04/03/20 00:00 Temperature 36.8 C Pulse Rate 55 L 56 L 53 L Respiratory Rate 18 Blood Pressure 139/52 L Pulse Oximetry 93 04/03/20 04:00 04/03/20 06:00 04/03/20 08:00 Temperature 36.6 C Pulse Rate 51 L 58 L 57 L Respiratory Rate 16 Blood Pressure 146/68 H Pulse Oximetry 92 04/03/20
[2020-04-03 18:16] LABS: Glucose Point of Care 120 (65-105)
[2020-04-03 21:30] LABS: Glucose Point of Care 132 (65-105)
[2020-04-04] VITALS: PULSE 51
[2020-04-04 04:00] VITALS: PULSE 53
[2020-04-04] MEDS: LEVOTHYROXINE SODIUM 125 MCG TABLET PO (05:51)
[2020-04-04 06:00] VITALS: BP 154/86; PULSE 57; RESP 20; TEMP 37.1; O2SAT 93
[2020-04-04 07:56] LABS: Alanine Aminotransferase 84 U/L (4-35); Albumin Level 3.1 g/dL (3.5-5.1); Alkaline Phosphatase 103 U/L (38-126); Anion Gap 9 mmol/L (8-16); Aspartate Amino Transferase 95 U/L (14-36); Bilirubin,Total 1.1 mg/dL (0.2-1.3); Blood Urea Nitrogen 8 mg/dL (7-17); Calcium 8.5 mg/dL (8.4-10.2); Carbon Dioxide 26 mmol/L (22-30); Chloride 100 mmol/L (98-107); Estimated CRCL calculation 79 ml/min; Estimated Glomerular Filt Rate > 60; Glucose 146 mg/dL (65-105); Potassium 3.6 mmol/L (3.4-5.0); Sodium 135 mmol/L (137-145)
[2020-04-04 08:00] VITALS: PULSE 61
[2020-04-04 08:38] LABS: Glucose Point of Care 155 (65-105)
--- NOTE | 2020-04-04 08:41 | WPDGIPROGNO ---
Progress Note: A&P Additional Plan Patient states diarrhea has slowed. Only 1 bowel movement yesterday. She no longer feels nauseated. No vomiting. Has not eaten more than small amount of clear liquids. On physical exam vital signs are stable. She is anicteric. Lungs are clear. Abdomen bowel sounds are present soft nontender. Labs reveal AST 95, ALT 84, alk-phos 103, total bilirubin 1.1. Impression 1. Dehydration. Appears related to nausea and diarrhea. Likely infectious etiology. Rehydration alone may help with many of her symptoms. 2. Diarrhea and nausea. Improving. Suspect this was an infectious etiology. Stool cultures are pending. Plan to start Cipro and Flagyl empirically. 3. Elevated LFTs. Etiology unclear. Hepatitis serologies pending. ultrasound reveals hepatic steatosis. She has a previous cholecystectomy. Suspect LFTs are elevated because of current infectious syndrome. Gastroenteritis likely. Subjective Date/time seen: 04/04/20 08:41 Objective Data Vital Signs Vital Signs: Vital Signs - 24 hr 04/03/20 12:00 04/03/20 14:00 04/03/20 16:00 Temperature 97.3 F L Pulse Rate 64 60 60 Respiratory Rate 16 Blood Pressure 162/82 H Pulse Oximetry 96 04/03/20 20:00 04/03/20 22:00 04/04/20 00:00 Temperature 98.5 F Pulse Rate 51 L 55 L 51 L Respiratory Rate 20 Blood Pressure 139/77 Pulse Oximetry 96 04/04/20 04:00 04/04/20 06:00 Temperature 98.7 F Pulse Rate 53 L 57 L Respiratory Rate 20 Blood Pressure 154/86 H Pulse Oximetry 93 Intake/Output Intake/Output: Intake & Output 04/01/20 04/02/20 04/03/20 04/04/20 23:59 23:59 23:59 23:59 Intake Total 1240 1980 300 Output Total 500 1300 1000 Balance 740 680 -700 Meds/Results Medications: Active Medications Generic Name Dose Route Start Last Admin Trade Name Freq PRN Reason Stop Dose Admin Dextrose 12.5 gm 04/02/20 15:32 Dextrose 50% 25 Gm/50 Ml Syringe IV PUSH PRN PRN Hypoglycemia Protocol Glucagon 1 mg 04/02/20 15:32 Glucagon For Inj 1 Mg Vial IM PRN PRN Hypoglycemia Protocol Glucose 15 gm 04/02/20 15:32 Glucose Oral Gel 15 Gm Of Glucse In 37.5 Gm Tube PO PRN PRN Hypoglycemia Protocol Hydralazine HCl 10 mg 04/02/20 15:36 Hydralazine Hcl 20 Mg/Ml Vial IV PUSH Q8H PRN Blood Pressure - High Hydrochlorothiazide 12.5 mg 04/04/20 09:00 Hydrochlorothiazide 12.5 Mg Capsule PO QAM FRANK Dextrose 1,000 mls @ 100 mls/hr 04/02/20 15:32 Dextrose 5% 1,000 Ml IVPB PRN PRN Hypoglycemia Protocol Lactated Ringer's 1,000 mls @ 70 mls/hr 04/03/20 07:50 04/03/20 22:16 Lr - Lactated Ringers Iv IV CONT 70 mls/hr .[id number] FRANK Administration Insulin Aspart 2 - 5 units 04/02/20 17:00 04/03/20 17:45 Insulin Aspart (*Bkc) 100 Units/Ml SUB-Q Not Given TIDWM [facility] Protocol Levothyroxine Sodium 125 mcg 04/04/20 06:30 04/04/20 05:51 Levothyroxine Sodium 125 Mcg Tablet PO 125 mcg DAILY@0630 FRANK Administration Lisinopril 20 mg 04/03/20 12:15 04/03/20 12:53 Lisinopril 20 Mg Tablet PO 20 mg QAM FRANK Administration Metoclopramide HCl 10 mg 04/03/20 12:07 Metoclopramide Hcl 10 Mg/10 Ml Soln Udc PO ACHS PRN Nausea Pantoprazole Sodium 40 mg 04/04/20 12:15 Pantoprazole 40 Mg Tablet PO BID FRANK Promethazine HCl 25 mg 04/03/20 12:06 Promethazine Hcl 25 Mg Tablet PO Q6H PRN nausea and vomiting Radiology Results: ITS Impressions Upper Quadrant Ultrasound 04/03/20 14:41 IMPRESSION: 1. Hepatic steatosis. Labs Labs: Laboratory Results - last 24 hr 04/03/20 04/03/20 04/03/20 07:11 08:18 08:48 Sodium Potassium Chloride Carbon Dioxide Anion Gap BUN Creatinine Estim Creat Clear Calc Estimated GFR Glucose POC Capillary Glucose 141 H 135 H Calcium Total Bili
[2020-04-04 08:45] LABS: Magnesium 2.2 mg/dL (1.6-2.3)
[2020-04-04] MEDS: levoFLOXacin 250 MG/D5W 50 ML 250 MG/50 ML BAG 50 MG IVPB (09:24)
[2020-04-04] MEDS: hydroCHLOROthiazide 12.5 MG CAPSULE PO (09:25)
[2020-04-04] MEDS: lisinopriL 20 MG TABLET PO (09:25)
[2020-04-04] MEDS: metroNIDAZOLE 250MG/ISO 50 ML 250 MG/50 ML BAG 50 MG IVPB ×2 (11:23→17:25)
[2020-04-04 12:40] LABS: Glucose Point of Care 139 (65-105)
--- NOTE | 2020-04-04 13:54 | PM.IMPN ---
Progress Note: A&P Assessment and Plan (1) Nausea vomiting and diarrhea: Code(s): R11.2 - Nausea with vomiting, unspecified; R19.7 - Diarrhea, unspecified Status: Acute Assessment and Plan: this has been going on for at least 2 weeks. ? infectious viral, bacterial. ? IBS or Inflammatory bowel ? side effect of medications IV fluids await stool culture Oral cipro and flagyl on hold STATIN AND METFORMIN ON HOLD Pt has been to ED with nausea and vomiting and diarrhea. Pt had labs and ct abdo which were unremarkable. Pts LFts are high ferrtin and crp are high. protein and albumin are low. mg is high. hbaic is over 7. Pt states she is having some loose stool today and mild lower abdominal cramps but nausea is better. Pt denies history of foreign travel or sick contacts. Pt denies IBS or Inflammatory bowel. Pt has a history of DM, HLD and hypothyroidism. Pt seen by GI today. Pt was tested for covid and was found to be negative. 04/04 today patient states feeling little better, had only 1 BM today somewhat nauseated but no vomiting was able to tolerate clear liquid and was advanced to full liquid, patient states she still feels fatigued and tired, patient was seen by GI and suspect diarrhea from Infectious source and started the patient on Flagyl and Cipro, stool culture is still pending, will continue to monitor the patient will have a PT OT evaluate the patient further recommendation to follow (2) Hypokalemia: Code(s): E87.6 - Hypokalemia Status: Acute Assessment and Plan: Replace as necessary. (3) Type 2 diabetes mellitus without complications: Code(s): E11.9 - Type 2 diabetes mellitus without complications Status: Acute Assessment and Plan: Accu-Cheks AC and HS with sliding scale insulin. hold metformin, pt is not eating much (4) Mixed hyperlipidemia: Code(s): E78.2 - Mixed hyperlipidemia Status: Acute Assessment and Plan: patient's liver enzymes are mildly elevated. HOLD STATIN. HEP panel is negative (5) Hypothyroidism, iatrogenic: Code(s): E03.2 - Hypothyroidism due to medicaments and other exogenous substances Status: Acute Assessment and Plan: continue oral levothyroixine (6) Essential (primary) hypertension: Code(s): I10 - Essential (primary) hypertension Status: Acute Assessment and Plan: Restart pts Bp medications Subjective Date/time seen: 04/04/20 13:54 Interval history: Pt has been to ED with nausea and vomiting and diarrhea. Pt had labs and ct abdo which were unremarkable. Pts LFts are high ferrtin and crp are high. protein and albumin are low. mg is high. hbaic is over 7. Pt states she is having some loose stool today and mild lower abdominal cramps but nausea is better. Pt denies history of foreign travel or sick contacts. Pt denies IBS or Inflammatory bowel. Pt has a history of DM, HLD and hypothyroidism. Pt seen by GI today. Pt was tested for covid and was found to be negative. 04/04 today patient states feeling little better, had only 1 BM today somewhat nauseated but no vomiting was able to tolerate clear liquid and was advanced to full liquid, patient states she still feels fatigued and tired, patient was seen by GI and suspect diarrhea from Infectious source and started the patient on Flagyl and Cipro, stool culture is still pending, will continue to monitor the patient will have a PT OT evaluate the patient further recommendation to follow Review of Systems Review of Systems: All systems reviewed & are unremarkable except as noted in HPI and below Exam Narrative: Exam Narrative: Patient is comfortable, NAD HEENT: eyes are clear and none icteric LUNGS:CTA HEART: RR S1S2 ABD: BS+, Soft and nontender Lower extremities: no edema SKIN: nonjaundiced Neuro: grossly intact. Objective Data Vital Signs Vital Signs: Vital Signs - 24 hr 04/03/20 14:00 04/03/20 16:00 04/03/20 20:
[2020-04-04 14:00] VITALS: BP 148/80; PULSE 62; RESP 16; TEMP 36.2; O2SAT 97
[2020-04-04] MEDS: LACTATED RINGERS 1,000 ML 70 ML IV CONT (15:26)
[2020-04-04] MEDS: PANTOPRAZOLE 40 MG TABLET PO (15:27)
[2020-04-04 17:31] LABS: Glucose Point of Care 122 (65-105)
[2020-04-04 21:13] LABS: Glucose Point of Care 153 (65-105)
[2020-04-04 22:00] VITALS: BP 136/88; PULSE 57; RESP 18; TEMP 36.9; O2SAT 94
[2020-04-05] MEDS: metroNIDAZOLE 250MG/ISO 50 ML 250 MG/50 ML BAG 50 MG IVPB ×2 (00:34→05:37)
[2020-04-05] MEDS: LEVOTHYROXINE SODIUM 125 MCG TABLET PO (05:37)
[2020-04-05 05:58] VITALS: BP 146/65; PULSE 58; RESP 18; TEMP 36.6; O2SAT 9
[2020-04-05 06:25] LABS: Hematocrit 35.5 % (37.0-47.0); Hemoglobin 12.2 g/dL (12.0-15.0); Mean Corpuscular HGB Conc 34.4 g/dl (32-36); Mean Corpuscular Hemoglobin 29.2 pg (26-34); Mean Corpuscular Volume 84.9 fl (80-100); Mean Platelet Volume 8.2 fl (7.4-10.4); Platelet Count Result 293 k/mm3 (150-375); Red Blood Count 4.18 M/mm3 (4.2-5.4); Red Cell Distribution Width 12.3 % (11.5-14.5)
[2020-04-05 06:40] LABS: Alanine Aminotransferase 84 U/L (4-35); Albumin Level 3.2 g/dL (3.5-5.1); Alkaline Phosphatase 108 U/L (38-126); Anion Gap 9 mmol/L (8-16); Aspartate Amino Transferase 74 U/L (14-36); Blood Urea Nitrogen 6 mg/dL (7-17); Calcium 8.7 mg/dL (8.4-10.2); Carbon Dioxide 27 mmol/L (22-30); Chloride 99 mmol/L (98-107); Estimated CRCL calculation 79 ml/min; Estimated Glomerular Filt Rate > 60; Glucose 140 mg/dL (65-105); Potassium 3.6 mmol/L (3.4-5.0); Sodium 135 mmol/L (137-145)
[2020-04-05 08:00] VITALS: PULSE 58; RESP 18; O2SAT 9
[2020-04-05 08:45] LABS: Glucose Point of Care 143 (65-105)
[2020-04-05] MEDS: PANTOPRAZOLE 40 MG TABLET PO (09:41)
[2020-04-05] MEDS: hydroCHLOROthiazide 12.5 MG CAPSULE PO (09:41)
[2020-04-05] MEDS: lisinopriL 20 MG TABLET PO (09:41)
--- NOTE | 2020-04-05 11:36 | WPDGIPROGNO ---
Progress Note: A&P Additional Plan Patient alert more comfortable today. Sitting up in a chair. States she no longer has diarrhea. Had a formed stool. No longer nauseated. Dietary intake improving. Physical exam reveals abdomen to be soft and nontender at This time. Impression 1. Dehydration. Patient improved quite dramatic orally with IV fluid rehydration. 2. Nausea vomiting diarrhea. Most consistent with infectious gastroenteritis. Plan is to continue Flagyl and Cipro for 1 week after discharge. Patient encouraged to maintain oral intake especially fluids to prevent dehydration. Patient should follow up with primary care service although she can follow up my office should diarrhea nausea vomiting or diarrhea persist. Hopefully discharge today. Subjective Date/time seen: 04/05/20 11:36 Objective Data Vital Signs Vital Signs: Vital Signs - 24 hr 04/04/20 14:00 04/04/20 22:00 04/05/20 05:58 Temperature 97.2 F L 98.4 F 97.9 F Pulse Rate 62 57 L 58 L Respiratory Rate 16 18 18 Blood Pressure 148/80 H 136/88 146/65 H Pulse Oximetry 97 94 9 L Intake/Output Intake/Output: Intake & Output 04/02/20 04/03/20 04/04/20 04/05/20 23:59 23:59 23:59 23:59 Intake Total 1240 1980 3480 750 Output Total 500 1300 2050 1500 Balance 298 237 9020 -750 Meds/Results Medications: Active Medications Generic Name Dose Route Start Last Admin Trade Name Freq PRN Reason Stop Dose Admin Dextrose 12.5 gm 04/02/20 15:32 Dextrose 50% 25 Gm/50 Ml Syringe IV PUSH PRN PRN Hypoglycemia Protocol Glucagon 1 mg 04/02/20 15:32 Glucagon For Inj 1 Mg Vial IM PRN PRN Hypoglycemia Protocol Glucose 15 gm 04/02/20 15:32 Glucose Oral Gel 15 Gm Of Glucse In 37.5 Gm Tube PO PRN PRN Hypoglycemia Protocol Hydralazine HCl 10 mg 04/02/20 15:36 Hydralazine Hcl 20 Mg/Ml Vial IV PUSH Q8H PRN Blood Pressure - High Hydrochlorothiazide 12.5 mg 04/04/20 09:00 04/05/20 09:41 Hydrochlorothiazide 12.5 Mg Capsule PO 12.5 mg QAM FRANK Administration Dextrose 1,000 mls @ 100 mls/hr 04/02/20 15:32 Dextrose 5% 1,000 Ml IVPB PRN PRN Hypoglycemia Protocol Lactated Ringer's 1,000 mls @ 70 mls/hr 04/03/20 07:50 04/04/20 15:26 Lr - Lactated Ringers Iv IV CONT 70 mls/hr .[id number] FRANK Administration Metronidazole 250 mg in 50 mls @ 50 mls/hr 04/04/20 09:00 04/05/20 06:37 Flagyl 250 Mg/Iso Soln 50 Ml IVPB Infused Q6HR FRANK Infusion Levofloxacin/Dextrose 250 mg in 50 mls @ 50 mls/hr 04/04/20 09:00 04/04/20 10:24 Levaquin 250 Mg/D5w 50 Ml IVPB Infused Q24H FRANK Infusion Insulin Aspart 2 - 5 units 04/02/20 17:00 04/05/20 09:37 Insulin Aspart (*Bkc) 100 Units/Ml SUB-Q Not Given TIDWM [facility] Protocol Levothyroxine Sodium 125 mcg 04/04/20 06:30 04/05/20 05:37 Levothyroxine Sodium 125 Mcg Tablet PO 125 mcg DAILY@0630 FRANK Administration Lisinopril 20 mg 04/03/20 12:15 04/05/20 09:41 Lisinopril 20 Mg Tablet PO 20 mg QAM FRANK Administration Metoclopramide HCl 10 mg 04/03/20 12:07 Metoclopramide Hcl 10 Mg/10 Ml Soln Udc PO ACHS PRN Nausea Pantoprazole Sodium 40 mg 04/04/20 12:15 04/05/20 09:41 Pantoprazole 40 Mg Tablet PO 40 mg BID FRANK Administration Promethazine HCl 25 mg 04/03/20 12:06 Promethazine Hcl 25 Mg Tablet PO Q6H PRN nausea and vomiting Radiology Results: ITS Impressions Upper Quadrant Ultrasound 04/03/20 14:41 IMPRESSION: 1. Hepatic steatosis. Labs Labs: Laboratory Results - last 24 hr 04/04/20 04/04/20 04/04/20 12:32 17:27 20:27 WBC RBC Hgb Hct MCV MCH MCHC RDW Plt Count MPV Sodium Potassium Chloride Carbon Dioxide Anion Gap BUN Creatinine Estim Creat Clear Calc Estimated GFR Glucose POC Capillary Glucose 139 H 122 H 153 H
--- NOTE | 2020-04-05 11:50 | PM.DS ---
DS: Admitting Diagnosis Admitting Diagnosis Admitting Diagnosis: dehydration/n/v/diarrhea DS: Discharge Diagnosis Discharge Diagnosis (1) Nausea vomiting and diarrhea: Code(s): R11.2 - Nausea with vomiting, unspecified; R19.7 - Diarrhea, unspecified Status: Acute Assessment and Plan: this has been going on for at least 2 weeks. ? infectious viral, bacterial. ? IBS or Inflammatory bowel ? side effect of medications IV fluids await stool culture Oral cipro and flagyl on hold STATIN AND METFORMIN ON HOLD Pt has been to ED with nausea and vomiting and diarrhea. Pt had labs and ct abdo which were unremarkable. Pts LFts are high ferrtin and crp are high. protein and albumin are low. mg is high. hbaic is over 7. Pt states she is having some loose stool today and mild lower abdominal cramps but nausea is better. Pt denies history of foreign travel or sick contacts. Pt denies IBS or Inflammatory bowel. Pt has a history of DM, HLD and hypothyroidism. Pt seen by GI today. Pt was tested for covid and was found to be negative. 04/04 today patient states feeling little better, had only 1 BM today somewhat nauseated but no vomiting was able to tolerate clear liquid and was advanced to full liquid, patient states she still feels fatigued and tired, patient was seen by GI and suspect diarrhea from Infectious source and started the patient on Flagyl and Cipro, stool culture is still pending, will continue to monitor the patient will have a PT OT evaluate the patient further recommendation to follow (2) Hypokalemia: Code(s): E87.6 - Hypokalemia Status: Acute Assessment and Plan: Replace as necessary. (3) Type 2 diabetes mellitus without complications: Code(s): E11.9 - Type 2 diabetes mellitus without complications Status: Acute Assessment and Plan: Accu-Cheks AC and HS with sliding scale insulin. hold metformin, pt is not eating much (4) Mixed hyperlipidemia: Code(s): E78.2 - Mixed hyperlipidemia Status: Acute Assessment and Plan: patient's liver enzymes are mildly elevated. HOLD STATIN. HEP panel is negative (5) Hypothyroidism, iatrogenic: Code(s): E03.2 - Hypothyroidism due to medicaments and other exogenous substances Status: Acute Assessment and Plan: continue oral levothyroixine (6) Essential (primary) hypertension: Code(s): I10 - Essential (primary) hypertension Status: Acute Assessment and Plan: Restart pts Bp medications DS: Summary Hospital Course Reason for hospitalization: Chief complaint: dehydration/n/v/diarrhea Narrative: Leanna Thorpe is a 64 year old female Who has been feeling ill for at least 2 weeks now. I see a note in the system from 03/26/2020 where the patient had nausea vomiting diarrhea. She tells me this is been going on for about 2 weeks now. She said this past Saturday she did check for COVID and was found to be negative. Patient stated she has been on metformin but has been many years since she has started that. Has not typically had any problems with the metformin. Patient was seen in the [facility] on 03/26/2021 her blood sugar was 296 and was nauseated did not take her metformin. Patient has had elevated liver enzymes in the past due to her statin. The patient was also seen in the emergency room here by Dr. Neil on 03/26/2020 and was diagnosed with acute viral syndrome. She was prescribed Zofran at that time. The patient then came back to ER on 03/28/2020 where she was having some intermittent diarrhea. She has not had any sick contacts. She is also having some lower abdominal discomfort. Patient tells me she did notice any blood in her stool but the last couple days they have been darker. The patient was seen again in the emergency room on 03/31/2020 with nausea and diarrhea. Her labs were unremarkable at that time and had a unremarkable CT scan according to the ED records. She
[2020-04-07 21:08] LABS: Mitochondrial (M2) Ab (IgG) <=20.0 U (<=20.0)
[2020-04-08 05:48] LABS: Alpha-1-Antitrypsin, QN 224 mg/dL (83-199); Ceruloplasmin 36 mg/dL (18-53)
== END 2020-04-05 13:05 | disposition home or self-care (01) | DRG 392 ==
LOC: ANHED 11:17 → ANH3MEDSUR 12:30
PROVIDERS: Internal Medicine Gastroenterology; Nurse Practitioner; Admitting Provider Family Medicine; Emergency Provider Emergency Medicine; PCP Family Medicine; Visit Provider Family Medicine
DX: A09 Infectious gastroenteritis and colitis, unspecified (principal); E86.0 Dehydration; E87.6 Hypokalemia; E78.2 Mixed hyperlipidemia; E03.2 Hypothyroidism due to medicaments and other exogenous substances; I10 Essential (primary) hypertension; E11.9 Type 2 diabetes mellitus without complications; Z90.49 Acquired absence of other specified parts of digestive tract; Z87.891 Personal history of nicotine dependence
CPT/HCPCS: 36415; 76705; 80053; 80074; 81001; 82103; 82274; 82390; 82728; 83036; 83520; 83605; 83690; 83735; 84443; 85025; 85027; 86038; 86140; 87015; 87045; 87046; 87177; 87209; 87269; 87272; 87324; 87427; 89055; 96361; 96374; 96375; 96376; 99285; A9270; C9113; G0378; J1956; J2405; J2765; J3480; J7030; J7120

== ENCOUNTER 2020-04-29 06:37 | Outpatient (CLI) | payer OTHER, SELFPAY ==
[2020-04-29 07:41] LABS: Hemoglobin A1C 7.1 % (<5.7)
[2020-04-29 07:47] LABS: Alanine Aminotransferase 91 U/L (4-35); Albumin Level 4.4 g/dL (3.5-5.1); Alkaline Phosphatase 109 U/L (38-126); Anion Gap 9 mmol/L (8-16); Aspartate Amino Transferase 57 U/L (14-36); Bilirubin,Total 1.2 mg/dL (0.2-1.3); Blood Urea Nitrogen 22 mg/dL (7-17); Calcium 9.9 mg/dL (8.4-10.2); Carbon Dioxide 28 mmol/L (22-30); Chloride 98 mmol/L (98-107); Cholesterol 220 mg/dL (0-200); Estimated Glomerular Filt Rate > 60; Glucose 186 mg/dL (65-105); HDL Direct 42 mg/dL; Potassium 4.3 mmol/L (3.4-5.0); Sodium 135 mmol/L (137-145); Triglycerides 206 mg/dL (<150)
[2020-04-29 07:57] LABS: LDL Cholesterol Direct 150 mg/dL
[2020-04-29 08:16] LABS: Thyroid Stimulating Hormone 0.368 uIU/mL (0.465-4.680)
[2020-04-29 08:19] LABS: Free T4 Free Thyroxine 1.73 ng/mL (0.78-2.19)
== END 2020-04-29 06:38 | disposition home or self-care (01) ==
PROVIDERS: PCP Family Medicine; Visit Provider Family Medicine
DX: R79.89 Other specified abnormal findings of blood chemistry (principal); E11.9 Type 2 diabetes mellitus without complications; E87.6 Hypokalemia; E78.2 Mixed hyperlipidemia; E03.2 Hypothyroidism due to medicaments and other exogenous substances; E88.81 Metabolic syndrome and other insulin resistance; I10 Essential (primary) hypertension
CPT/HCPCS: 36415; 80053; 80061; 83036; 84439; 84443

== ENCOUNTER 2020-06-02 06:34 | Outpatient (CLI) | payer OTHER, SELFPAY ==
[2020-06-02 07:41] LABS: Alanine Aminotransferase 42 U/L (4-35); Albumin Level 3.9 g/dL (3.5-5.1); Alkaline Phosphatase 106 U/L (38-126); Aspartate Amino Transferase 28 U/L (14-36)
== END 2020-06-02 06:35 | disposition home or self-care (01) ==
PROVIDERS: PCP Family Medicine; Visit Provider Family Medicine
DX: R79.89 Other specified abnormal findings of blood chemistry (principal)
CPT/HCPCS: 36415; 80076

== ENCOUNTER 2020-08-31 06:35 | Outpatient (CLI) | payer OTHER, SELFPAY ==
[2020-08-31 07:45] LABS: Hemoglobin A1C 7.3 % (<5.7)
[2020-08-31 08:01] LABS: LDL Cholesterol Direct 92 mg/dL
[2020-08-31 08:04] LABS: Alanine Aminotransferase 26 U/L (4-35); Albumin Level 4.3 g/dL (3.5-5.1); Alkaline Phosphatase 90 U/L (38-126); Anion Gap 8 mmol/L (8-16); Aspartate Amino Transferase 29 U/L (14-36); Bilirubin,Total 1.2 mg/dL (0.2-1.3); Blood Urea Nitrogen 24 mg/dL (7-17); Carbon Dioxide 28 mmol/L (22-30); Chloride 101 mmol/L (98-107); Cholesterol 165 mg/dL (0-200); Estimated Glomerular Filt Rate > 60; Glucose 146 mg/dL (65-105); HDL Direct 52 mg/dL; Potassium 4.7 mmol/L (3.4-5.0); Sodium 137 mmol/L (137-145); Triglycerides 139 mg/dL (<150)
[2020-08-31 08:19] LABS: Thyroid Stimulating Hormone 0.789 uIU/mL (0.465-4.680)
[2020-08-31 08:33] LABS: Free T4 Free Thyroxine 1.65 ng/mL (0.78-2.19)
== END 2020-08-31 06:36 | disposition home or self-care (01) ==
PROVIDERS: PCP Family Medicine; Visit Provider Family Medicine
DX: E03.2 Hypothyroidism due to medicaments and other exogenous substances (principal); E11.9 Type 2 diabetes mellitus without complications; E66.9 Obesity, unspecified; E78.2 Mixed hyperlipidemia; E88.81 Metabolic syndrome and other insulin resistance; I10 Essential (primary) hypertension
CPT/HCPCS: 36415; 80053; 80061; 83036; 84439; 84443

== ENCOUNTER 2020-12-28 06:33 | Outpatient (CLI) | payer OTHER, SELFPAY ==
[2020-12-28 07:52] LABS: Alanine Aminotransferase 31 U/L (4-35); Albumin Level 4.4 g/dL (3.5-5.1); Alkaline Phosphatase 99 U/L (38-126); Anion Gap 8 mmol/L (8-16); Aspartate Amino Transferase 27 U/L (14-36); Bilirubin,Total 1.5 mg/dL (0.2-1.3); Blood Urea Nitrogen 19 mg/dL (7-17); Calcium 10.6 mg/dL (8.4-10.2); Carbon Dioxide 25 mmol/L (22-30); Chloride 103 mmol/L (98-107); Cholesterol 164 mg/dL (0-200); Estimated Glomerular Filt Rate > 60; Glucose 151 mg/dL (65-110); HDL Direct 49 mg/dL; Potassium 4.7 mmol/L (3.4-5.0); Sodium 136 mmol/L (137-145); Triglycerides 162 mg/dL (<150)
[2020-12-28 08:05] LABS: LDL Cholesterol Direct 84 mg/dL
[2020-12-28 08:22] LABS: Thyroid Stimulating Hormone 0.526 uIU/mL (0.465-4.680)
[2020-12-28 08:32] LABS: Free T4 Free Thyroxine 1.75 ng/mL (0.78-2.19)
== END 2020-12-28 06:34 | disposition home or self-care (01) ==
PROVIDERS: PCP Family Medicine; Visit Provider Family Medicine
DX: E03.2 Hypothyroidism due to medicaments and other exogenous substances (principal); E66.9 Obesity, unspecified; E78.2 Mixed hyperlipidemia; I10 Essential (primary) hypertension
CPT/HCPCS: 36415; 80053; 80061; 84439; 84443

== ENCOUNTER 2020-12-29 09:04 | Outpatient (CLI) | payer OTHER, SELFPAY ==
[2020-12-29 11:33] LABS: Hemoglobin A1C 7.2 % (<5.7)
== END 2020-12-29 09:05 | disposition home or self-care (01) ==
PROVIDERS: PCP Family Medicine; Visit Provider Family Medicine
DX: E11.9 Type 2 diabetes mellitus without complications (principal)
CPT/HCPCS: 36415; 83036

== ENCOUNTER 2021-01-01 10:03 | Emergency (ER) | payer OTHER, SELFPAY ==
[2021-01-01 10:10] VITALS: BP 154/75; PULSE 79; RESP 16; TEMP 36.8; O2SAT 97
--- NOTE | 2021-01-01 10:27 | ED.GENADULT ---
HPI - General Adult General Chief complaint: Upper Respiratory Infection Stated complaint: sinus infection Source: patient Mode of arrival: ambulatory Limitations: no limitations History of Present Illness HPI narrative: Patient presents for evaluation of sinus congestion and drainage for the last 5 days. She reports a mucopurulent drainage from both nares. She initially had a sore throat, but this has resolved. She denies any fever, chills, nausea, vomiting, cough/other respiratory symptoms. She states several family members have similar symptoms. She states that her grandchild had RSV and patient was recently caring for her. She has been using Nasacort, afrin and Mucinex DM without significant improvement in her symptoms or after. She states that she is unable to take sudafed as it causes palpitations. She does not smoke. She received both doses of [employer] COVID vaccine. Related Data Allergies Allergy/AdvReac Type Severity Reaction Status Date / Time meperidine AdvReac Nausea Verified 01/01/21 10:21 Review of Systems Review of Systems: Narrative: CONSTITUTIONAL: Denies fever, chills, or sweats. EYES: Denies visual changes, redness, or discharge. ENT: Reports recent sore throat, now resolved. Reports sinus congestion with thick green mucopurulent drainage from both nares. Denies otalgia CARDIOVASCULAR: Denies chest pain, palpitations, or edema. RESPIRATORY: Denies cough or dyspnea. GASTROINTESTINAL: Denies abdominal pain, nausea, vomiting, or diarrhea. GENITOURINARY: Denies dysuria or hematuria. SKIN: Denies rash or itching. MUSCULOSKELETAL: Denies back pain, joint pain, or myalgia. NEUROLOGIC: Denies headache, numbness, dizziness, or weakness. PSYCHIATRIC: Denies anxiety or depression. [facility] Past Medical History Medical History Essential (primary) hypertension Hepatitis C antibody test negative History of bone density study (~05/14/14) History of radioactive iodine thyroid ablation (~05/11/16) Iatrogenic hypothyroidism Metabolic syndrome Mixed hyperlipidemia MVP (mitral valve prolapse) repeat echo was negative for mitral valve prolapse Normal colonoscopy (~09/13/11) Palpitation Person under investigation for COVID-19 found to be negative Type 2 diabetes mellitus without complication Surgical History Surgical History History of cholecystectomy S/P tonsillectomy and adenoidectomy Family History Family History Mother Family history of elevated blood lipids Family history of malignant neoplasm Grandparent Carcinoma of colon, Onset Age: 66 Father Family history of diabetes mellitus in first degree relative, Onset Age: 78 Family history of coronary artery disease, Onset Age: 78 Patient's father is Family history of cardiovascular disease, Onset Age: 78 Diabetes mellitus, Onset Age: 78 Social History Social History Social History: 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 She wishes to have her Masood as a durable power banking attorney for healthcare. She is a full code. She smoked some in college. Rarely has an alcoholic beverage. Denies any marijuana or illicit drug use. The patient has 2 children of which she states are healthy. Second hand tobacco smoke exposure: No Alcohol intake: never Substance use: never Gender identity (if verbalized by the patient): Female Spiritual care concerns: No Exam Narrative: Exam Narrative: GENERAL: Well-appearing, well-nourished, and in no acute distress. HEAD: Normocephalic, atraumatic. EYES: PERRLA and EOMI. ENT: Nares clear, no rhinorrhea or epistaxis. Mucous membranes moist. Oropharynx without tonsillar hypertrophy exudate or other lesions. Bilateral
== END 2021-01-01 11:08 | disposition home or self-care (01) ==
PROVIDERS: Emergency Provider Nurse Practitioner; PCP Family Medicine
DX: J01.90 Acute sinusitis, unspecified (principal); Z20.822 Contact with and (suspected) exposure to COVID-19; I10 Essential (primary) hypertension; E78.2 Mixed hyperlipidemia; I34.1 Nonrheumatic mitral (valve) prolapse; E11.9 Type 2 diabetes mellitus without complications
CPT/HCPCS: 87426; 99213; C9803; G0463

== ENCOUNTER 2021-04-14 12:53 | Outpatient (CLI) | payer OTHER, SELFPAY ==
--- NOTE | ~2021-04-14 | DEXA_ITS ---
Bone Density Report Name: Leanna Thorpe Age: 65 Sex: Female Ethnicity: White Date of : 1955 Indication: osteopenia; postmenopausal Referring Provider: THOM GONZALEZ Study: Bone densitometry was performed. Exam Date: April 14, 2021 Accession number: [id number] Bone Density: Region BMD T-score Z-score Classification AP Spine (L1-L4) 0.897 -1.4 0.5 Osteopenia Femoral Neck (Left) 0.580 -2.4 -0.8 Osteopenia Total Hip (Left) 0.789 -1.3 0.0 Osteopenia Total Hip Bilateral Avg 0.737 -1.7 -0.4 Osteopenia Femoral Neck (Right) 0.515 -3.0 -1.4 Osteoporosis Total Hip (Right) 0.684 -2.1 -0.8 Osteopenia World Health Organization criteria for BMD impression classify patients as: Normal (T-score at or above -1.0), Osteopenia (T-score between -1.0 and -2.5), or Osteoporosis (T-score at or below -2.5). 10-year Fracture Risk: FRAX not reported because: Some T-score for Spine Total or Hip Total or Femoral Neck at or below -2.5 Previous Exams: Region Exam Age BMD T-score BMD Change BMD Change Date g/cm2 vs Baseline vs Previous AP Spine(L1-L4) 04/14/2021 65 0.897 -1.4 -0.065(-6.8%)# -0.036(-3.9%)# 02/25/2019 63 0.934 -1.0 -0.029(-3.0%)# 0.035(3.9%)* 02/15/2017 61 0.899 -1.3 -0.064(-6.7%)# -0.026(-2.8%)# 05/14/2014 58 0.925 -1.1 -0.038(-3.9%)# 0.014(1.5%)# 12/13/2011 56 0.911 -1.2 -0.052(-5.4%)# -0.052(-5.4%)# 03/04/2009 53 0.963 -0.8 Total Hip(Left) 04/14/2021 65 0.789 -1.3 -0.102(-11.5%) -0.090(-10.3%) 02/25/2019 63 0.879 -0.5 -0.012(-1.3%)# 0.032(3.8%)* 02/15/2017 61 0.847 -0.8 -0.044(-4.9%)# 0.028(3.4%)* 05/14/2014 58 0.819 -1.0 -0.072(-8.0%)# -0.030(-3.6%)# 12/13/2011 56 0.850 -0.8 -0.041(-4.6%)# -0.041(-4.6%)# 03/04/2009 53 0.891 -0.4 Total Hip(Right) 04/14/2021 65 0.684 -2.1 -0.121(-15.1%) -0.109(-13.7%) 02/25/2019 63 0.792 -1.2 -0.013(-1.6%)# 0.028(3.7%)* 02/15/2017 61 0.764 -1.5 -0.041(-5.1%)# -0.006(-0.8%) 05/14/2014 58 0.770 -1.4 -0.035(-4.3%)# -0.054(-6.5%)# 12/13/2011 56 0.823 -1.0 0.019(2.3%)# 0.019(2.3%)# 03/04/2009 53 0.805 -1.1 *Denotes significance at 95% confidence level, LSC for AP Spine = 0.022 g/cm2, LSC for Total Hip = 0.027 g/cm2 Clinical Information Provided by Patient: Has used the following medications: Vitamin D, Calcium Patient maximum height was 65 Menopause Age: 56 No regular weight bearing exercise Onset of menses at age 11 Number of children 3
== END 2021-04-14 12:54 | disposition home or self-care (01) ==
LOC: ANHIMG 12:55
PROVIDERS: PCP Family Medicine; Visit Provider Obstetrics & Gynecology
DX: Z78.0 Asymptomatic menopausal state (principal); M85.88 Other specified disorders of bone density and structure, other site; M85.851 Other specified disorders of bone density and structure, right thigh; M85.852 Other specified disorders of bone density and structure, left thigh
CPT/HCPCS: 77080

== ENCOUNTER 2021-04-28 06:32 | Outpatient (CLI) | payer OTHER, SELFPAY ==
[2021-04-28 07:30] LABS: Hemoglobin A1C 6.8 % (<5.7)
[2021-04-28 07:35] LABS: Alanine Aminotransferase 29 U/L (4-35); Albumin Level 4.6 g/dL (3.5-5.1); Alkaline Phosphatase 109 U/L (38-126); Anion Gap 8 mmol/L (8-16); Aspartate Amino Transferase 25 U/L (14-36); Blood Urea Nitrogen 26 mg/dL (7-17); Calcium 11.1 mg/dL (8.4-10.2); Carbon Dioxide 26 mmol/L (22-30); Chloride 98 mmol/L (98-107); Cholesterol 182 mg/dL (0-200); Estimated Glomerular Filt Rate > 60; Glucose 130 mg/dL (65-110); HDL Direct 51 mg/dL; Potassium 4.4 mmol/L (3.4-5.0); Sodium 132 mmol/L (137-145); Triglycerides 188 mg/dL (<150)
[2021-04-28 07:48] LABS: LDL Cholesterol Direct 100 mg/dL
[2021-04-28 07:51] LABS: Free T4 Free Thyroxine 1.79 ng/mL (0.78-2.19)
== END 2021-04-28 06:33 | disposition home or self-care (01) ==
PROVIDERS: PCP Family Medicine; Visit Provider Family Medicine
DX: E03.2 Hypothyroidism due to medicaments and other exogenous substances (principal); E11.9 Type 2 diabetes mellitus without complications; E66.9 Obesity, unspecified; E78.2 Mixed hyperlipidemia; E88.81 Metabolic syndrome and other insulin resistance; I10 Essential (primary) hypertension
CPT/HCPCS: 36415; 80053; 80061; 83036; 84439; 84443

== ENCOUNTER 2021-05-26 07:44 | Outpatient (CLI) | payer OTHER, SELFPAY ==
[2021-05-26 08:23] LABS: Alanine Aminotransferase 29 U/L (4-35); Albumin Level 4.3 g/dL (3.5-5.1); Alkaline Phosphatase 120 U/L (38-126); Anion Gap 11 mmol/L (8-16); Aspartate Amino Transferase 26 U/L (14-36); Bilirubin,Total 0.9 mg/dL (0.2-1.3); Blood Urea Nitrogen 19 mg/dL (7-17); Calcium 10.4 mg/dL (8.4-10.2); Carbon Dioxide 25 mmol/L (22-30); Chloride 100 mmol/L (98-107); Estimated Glomerular Filt Rate 55; Glucose 144 mg/dL (65-110); Potassium 4.7 mmol/L (3.4-5.0); Sodium 136 mmol/L (137-145)
[2021-05-26 08:28] LABS: Parathyroid Intact 77.5 pg/mL (7.5-53.5)
== END 2021-05-26 07:45 | disposition home or self-care (01) ==
PROVIDERS: PCP Family Medicine; Visit Provider Family Medicine
DX: E83.52 Hypercalcemia (principal); R79.89 Other specified abnormal findings of blood chemistry; E87.6 Hypokalemia
CPT/HCPCS: 36415; 80053; 83970

== ENCOUNTER 2021-06-06 14:10 | Outpatient (CLI) | payer OTHER, SELFPAY ==
[2021-06-06 14:51] LABS: Calcium 10.1 mg/dL (8.4-10.2)
[2021-06-06 15:04] LABS: Parathyroid Intact 78.9 pg/mL (7.5-53.5)
[2021-06-10 08:57] LABS: Vitamin D 1,25 (OH)2 Total 54 pg/mL (18-72); Vitamin D2 1,25 (OH)2 <8 pg/mL; Vitamin D3 1,25 (OH)2 54 pg/mL
== END 2021-06-06 14:11 | disposition home or self-care (01) ==
PROVIDERS: PCP Family Medicine; Visit Provider Family Medicine
DX: E34.9 Endocrine disorder, unspecified (principal); E55.9 Vitamin D deficiency, unspecified
CPT/HCPCS: 36415; 82310; 82340; 82652; 83970

== ENCOUNTER 2021-06-14 06:36 | Outpatient (CLI) | payer MEDICARE, OTHER, SELFPAY ==
[2021-06-14 07:45] LABS: Alanine Aminotransferase 26 U/L (4-35); Albumin Level 4.1 g/dL (3.5-5.1); Alkaline Phosphatase 103 U/L (38-126); Anion Gap 10 mmol/L (8-16); Aspartate Amino Transferase 22 U/L (14-36); Blood Urea Nitrogen 15 mg/dL (7-17); Calcium 10.4 mg/dL (8.4-10.2); Carbon Dioxide 24 mmol/L (22-30); Chloride 102 mmol/L (98-107); Estimated Glomerular Filt Rate > 60; Glucose 146 mg/dL (65-110); Phosphorus 3.7 mg/dL (2.5-4.5); Potassium 4.5 mmol/L (3.4-5.0); Sodium 136 mmol/L (137-145)
[2021-06-19 17:30] LABS: Total Volume 2400 mL; Urine Calcium 11.6 mg/dL
== END 2021-06-14 06:37 | disposition home or self-care (01) ==
PROVIDERS: PCP Family Medicine; Visit Provider Family Medicine
DX: E34.9 Endocrine disorder, unspecified (principal); E55.9 Vitamin D deficiency, unspecified; E78.2 Mixed hyperlipidemia; E88.81 Metabolic syndrome and other insulin resistance; R94.4 Abnormal results of kidney function studies
CPT/HCPCS: 36415; 80053; 82340; 84100

== ENCOUNTER 2021-09-01 08:14 | Outpatient (CLI) | payer MEDICARE, OTHER, SELFPAY ==
[2021-09-01 09:01] LABS: Hemoglobin A1C 6.2 % (<5.7)
[2021-09-01 10:23] LABS: Alanine Aminotransferase 30 U/L (4-35); Albumin Level 4.3 g/dL (3.5-5.1); Alkaline Phosphatase 134 U/L (38-126); Anion Gap 8 mmol/L (8-16); Aspartate Amino Transferase 29 U/L (14-36); Bilirubin,Total 1.2 mg/dL (0.2-1.3); Blood Urea Nitrogen 22 mg/dL (7-17); Calcium 10.1 mg/dL (8.4-10.2); Carbon Dioxide 24 mmol/L (22-30); Chloride 102 mmol/L (98-107); Cholesterol 168 mg/dL (0-200); Estimated Glomerular Filt Rate > 60; Glucose 128 mg/dL (65-110); HDL Direct 46 mg/dL; Potassium 4.6 mmol/L (3.4-5.0); Sodium 134 mmol/L (137-145); Triglycerides 157 mg/dL (<150)
[2021-09-01 10:35] LABS: LDL Cholesterol Direct 85 mg/dL
== END 2021-09-01 08:15 | disposition home or self-care (01) ==
PROVIDERS: PCP Family Medicine; Visit Provider Family Medicine
DX: E03.2 Hypothyroidism due to medicaments and other exogenous substances (principal); E11.9 Type 2 diabetes mellitus without complications; E66.9 Obesity, unspecified; E78.2 Mixed hyperlipidemia; I10 Essential (primary) hypertension
CPT/HCPCS: 36415; 80053; 80061; 83036; 84439; 84443

== ENCOUNTER 2021-12-01 00:21 | Day surgery (SDC) | payer MEDICARE, OTHER, SELFPAY ==
[2021-09-28 12:45] VITALS: BMI 34.8
[2021-11-15 15:18] VITALS: BMI 35.1
--- NOTE | 2021-11-15 15:29 | PC.NURSE ---
No changes in medical or medication history since interview 09/28/2021
--- NOTE | 2021-11-30 12:05 | WPDANESEPPF ---
Anes - Initial Pre Proc Eval Procedure: Operation Date: 12/01/21 08:30 Proposed Procedures p Screening Colonoscopy - Mac Méndez MD Date/Time: 11/30/21 12:05 Surgeon: Mac Méndez MD Pre Op Diagnosis: neoplasm screening Patient Data Age: 65 Gender: F Height: 1.65 m Weight: 95.7 kg Allergies Allergy/AdvReac Type Severity Reaction Status Date / Time pseudoephedrine AdvReac Intermediate Palpitation Verified 12/01/21 07:42 [From Sudafed] s meperidine AdvReac Mild Nausea Verified 12/01/21 07:42 Home Medications Medication Instructions Recorded Confirmed Type cholecalciferol (vitamin D3) 25 25 mcg PO DAILY 05/18/21 11/15/21 History mcg (1,000 unit) capsule metformin 500 mg tablet,extended 1,000 mg PO BID #360 tabs 07/17/21 11/15/21 Rx release 24 hr lisinopril 20 mg tablet See Rx Instructions .Route 08/28/21 11/15/21 Rx .COMPLEX #60 tabs atorvastatin 10 mg tablet See Rx Instructions .Route 09/04/21 11/15/21 Rx .COMPLEX #30 tabs sodium,potassium,mag sulfates 17.5 See Rx Instructions PO .COMPLEX 09/07/21 11/15/21 Rx gram-3.13 gram-1.6 gram oral soln #354 mL (Suprep Bowel Prep Kit) levothyroxine 125 mcg tablet 125 mcg PO DAILY 11/15/21 11/15/21 History amlodipine 2.5 mg tablet See Rx Instructions .Route 11/27/21 Rx .COMPLEX #30 tabs Patient hx anesthesia problems: none Family hx anesthesia problems: none Results Review: All pre-operative results and documents have been reviewed as part of the pre-operative evaluation. [facility] Past Medical History Medical History Essential (primary) hypertension Hepatitis C antibody test negative History of bone density study (~05/14/14) History of radioactive iodine thyroid ablation (~05/11/16) Iatrogenic hypothyroidism Metabolic syndrome Mixed hyperlipidemia MVP (mitral valve prolapse) repeat echo was negative for mitral valve prolapse Normal colonoscopy (~09/13/11) Palpitation Person under investigation for COVID-19 found to be negative Type 2 diabetes mellitus without complication Surgical History Surgical History History of cholecystectomy S/P tonsillectomy and adenoidectomy Family History Family History Mother Family history of elevated blood lipids Family history of malignant neoplasm Grandparent Carcinoma of colon, Onset Age: 66 Father Family history of diabetes mellitus in first degree relative, Onset Age: 78 Family history of coronary artery disease, Onset Age: 78 Patient's father is Family history of cardiovascular disease, Onset Age: 78 Diabetes mellitus, Onset Age: 78 Social History Social History Social History: 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 She is a full code. She smoked some in college. Rarely has an alcoholic beverage. Denies any marijuana or illicit drug use. The patient has 2 children of which she states are healthy. Smoking status: Never smoker Second hand tobacco smoke exposure: No Alcohol intake: current Drinks per week: 3 Substance use: never Substance use type: does not use Living arrangements: with family Gender identity (if verbalized by the patient): Female Sexual Orientation (if Verbalized by the Patient): Straight or Heterosexual Spiritual care concerns: No Anes - Eval Final PreProcedure Day of Procedure 11/30/21 12:05 Patient weight: obese Heart: regular rate and rhythm Lungs: clear to auscultation Airway: Mallampati scale class II Neurological: alert and oriented Last oral intake: >/= 8 hours ASA classification: III Emergent: no Anesthetic plan: proceed Anesthesia type
[2021-12-01 07:45] VITALS: BP 150/82; PULSE 62; RESP 16; TEMP 36.7; O2SAT 98
--- NOTE | 2021-12-01 07:57 | PM.IMHP ---
H&P: HPI History of Present Illness Date/Time: 12/01/21 07:57 Chief Complaint: Neoplasia screening. Narrative: This is a 66-year-old white female patient presents for neoplasia screening colonoscopy. She reports her current weight appetite bowel movements are normal. She denies abdominal pain. Patient has had no bleeding. Family history noncontributory. Last colonoscopy 10 years ago was unremarkable. Patient presents today for neoplasia screening. Review of Systems Review of Systems: Review of systems noncontributory. [facility] Past Medical History Medical History (Reviewed 09/04/21 @ 14:21 by Sailaja Gonzalez [facility]) Essential (primary) hypertension Hepatitis C antibody test negative History of bone density study (~05/14/14) History of radioactive iodine thyroid ablation (~05/11/16) Iatrogenic hypothyroidism Metabolic syndrome Mixed hyperlipidemia MVP (mitral valve prolapse) repeat echo was negative for mitral valve prolapse Normal colonoscopy (~09/13/11) Palpitation Person under investigation for COVID-19 found to be negative Type 2 diabetes mellitus without complication Surgical History Surgical History History of cholecystectomy S/P tonsillectomy and adenoidectomy Family History Family History Mother Family history of elevated blood lipids Family history of malignant neoplasm Grandparent Carcinoma of colon, Onset Age: 66 Father Family history of diabetes mellitus in first degree relative, Onset Age: 78 Family history of coronary artery disease, Onset Age: 78 Patient's father is Family history of cardiovascular disease, Onset Age: 78 Diabetes mellitus, Onset Age: 78 Social History Social History (Reviewed 09/04/21 @ 14:21 by Sailaja Gonzalez [facility]) Social History: 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 She is a full code. She smoked some in college. Rarely has an alcoholic beverage. Denies any marijuana or illicit drug use. The patient has 2 children of which she states are healthy. Smoking status: Never smoker Second hand tobacco smoke exposure: No Alcohol intake: current Drinks per week: 3 Substance use: never Substance use type: does not use Living arrangements: with family Gender identity (if verbalized by the patient): Female Sexual Orientation (if Verbalized by the Patient): Straight or Heterosexual Spiritual care concerns: No Meds Home Medications and Allergies Home Medications Medication Instructions Recorded Confirmed Type cholecalciferol (vitamin D3) 25 25 mcg PO DAILY 05/18/21 12/01/21 History mcg (1,000 unit) capsule metformin 500 mg tablet,extended 1,000 mg PO BID #360 tabs 07/17/21 12/01/21 Rx release 24 hr lisinopril 20 mg tablet See Rx Instructions .Route 08/28/21 12/01/21 Rx .COMPLEX #60 tabs atorvastatin 10 mg tablet See Rx Instructions .Route 09/04/21 12/01/21 Rx .COMPLEX #30 tabs sodium,potassium,mag sulfates 17.5 See Rx Instructions PO .COMPLEX 09/07/21 12/01/21 Rx gram-3.13 gram-1.6 gram oral soln #354 mL (Suprep Bowel Prep Kit) levothyroxine 125 mcg tablet 125 mcg PO DAILY 11/15/21 12/01/21 History amlodipine 2.5 mg tablet See Rx Instructions .Route 11/27/21 12/01/21 Rx .COMPLEX #30 tabs Allergies Allergy/AdvReac Type Severity Reaction Status Date / Time pseudoephedrine AdvReac Intermediate Palpitation Verified 12/01/21 07:42 [From [employer]] s meperidine AdvReac Mild Nausea Verified 12/01/21 07:42 Vital Signs Vital Signs - 24 hr 12/01/21 07:45 Temperature 98.0 F Pulse Rate 62 Respiratory Rate 16 Blood Pressure 150/82 H Pulse Oximetry 98 Oxygen Delivery Room Air Exam Narrative: Physical exam reveals patient be alert. V
[2021-12-01] MEDS: LACTATED RINGERS 1,000 ML 150 ML IV CONT (07:58)
[2021-12-01 08:02] LABS: Glucose Point of Care 133 mg/dl (65-105)
[2021-12-01 08:47] VITALS: BP 141/66; PULSE 60; RESP 23; O2SAT 99
[2021-12-01 08:57] VITALS: BP 140/81; PULSE 58; RESP 24; O2SAT 98
[2021-12-01 09:07] VITALS: BP 157/84; PULSE 54; RESP 17; O2SAT 100
== END 2021-12-01 09:16 | disposition home or self-care (01) ==
PROVIDERS: PCP Family Medicine; Visit Provider Internal Medicine Gastroenterology
PROC: 0DJD8ZZ Inspection of Lower Intestinal Tract, Via Natural or Artificial Opening Endoscopic (ICD-10-PCS; CPT 45378; principal; 2021-12-01 08:30)
DX: Z12.11 Encounter for screening for malignant neoplasm of colon (principal); K64.8 Other hemorrhoids; I10 Essential (primary) hypertension; E78.2 Mixed hyperlipidemia; E11.9 Type 2 diabetes mellitus without complications; Z79.84 Long term (current) use of oral hypoglycemic drugs; E66.9 Obesity, unspecified; Z68.35 Body mass index [BMI] 35.0-35.9, adult
CPT/HCPCS: G0121; 82948; J2704; J7120

== ENCOUNTER 2022-01-02 08:31 | Outpatient (CLI) | payer MEDICARE, OTHER, SELFPAY ==
[2022-01-02 08:59] LABS: Hemoglobin A1C 6.4 % (<5.7)
[2022-01-02 09:09] LABS: Alanine Aminotransferase 39 U/L (6-35); Albumin Level 4.5 g/dL (3.5-5.1); Alkaline Phosphatase 133 U/L (38-126); Anion Gap 8 mmol/L (8-16); Aspartate Amino Transferase 33 U/L (14-36); Bilirubin,Total 1.2 mg/dL (0.2-1.3); Blood Urea Nitrogen 21 mg/dL (7-17); Calcium 10.6 mg/dL (8.4-10.2); Carbon Dioxide 26 mmol/L (22-30); Chloride 102 mmol/L (98-107); Cholesterol 146 mg/dL (0-200); Estimated Glomerular Filt Rate > 60; Glucose 134 mg/dL (65-110); HDL Direct 48 mg/dL; Potassium 4.8 mmol/L (3.4-5.0); Sodium 136 mmol/L (137-145); Triglycerides 129 mg/dL (<150)
[2022-01-02 09:20] LABS: LDL Cholesterol Direct 67 mg/dL
== END 2022-01-02 08:32 | disposition home or self-care (01) ==
LOC: ANHLAB 08:35
PROVIDERS: PCP Family Medicine; Visit Provider Family Medicine
DX: E03.2 Hypothyroidism due to medicaments and other exogenous substances (principal); M81.0 Age-related osteoporosis without current pathological fracture; E78.2 Mixed hyperlipidemia; E11.9 Type 2 diabetes mellitus without complications
CPT/HCPCS: 36415; 80053; 80061; 83036; 84443

== ENCOUNTER 2022-01-17 09:50 | Outpatient (CLI) | payer MEDICARE, OTHER, SELFPAY ==
[2022-01-17 10:54] LABS: Parathyroid Intact 95.4 pg/mL (7.5-53.5)
[2022-01-21 18:08] LABS: Albumin 4.2 g/dL (3.8-4.8); Alpha 1 Globulin 0.3 g/dL (0.2-0.3); Alpha 2 Globulin 0.6 g/dL (0.5-0.9); Beta 1 Globulin 0.5 g/dL (0.4-0.6); Gamma Globulin 0.6 g/dL (0.8-1.7); Interpretation Consistent with; Protein, Total 6.3 g/dL (6.1-8.1)
[2022-01-22 12:10] LABS: Vitamin D 1,25 (OH)2 Total 58 pg/mL (18-72); Vitamin D2 1,25 (OH)2 <8 pg/mL; Vitamin D3 1,25 (OH)2 58 pg/mL
== END 2022-01-17 09:51 | disposition home or self-care (01) ==
PROVIDERS: PCP Family Medicine; Visit Provider Family Medicine
DX: E34.9 Endocrine disorder, unspecified (principal); E83.52 Hypercalcemia
CPT/HCPCS: 36415; 82652; 83970; 84155; 84165

== ENCOUNTER 2022-03-01 09:25 | Outpatient (CLI) | payer MEDICARE, OTHER, SELFPAY ==
[2022-03-01 11:02] LABS: Albumin Level 4.2 g/dL (3.5-5.1); Anion Gap 9 mmol/L (8-16); Blood Urea Nitrogen 17 mg/dL (7-17); Calcium 10.8 mg/dL (8.4-10.2); Carbon Dioxide 23 mmol/L (22-30); Chloride 103 mmol/L (98-107); Estimated Glomerular Filt Rate > 60; Glucose 283 mg/dL (65-110); Phosphorus 3.2 mg/dL (2.5-4.5); Potassium 4.8 mmol/L (3.4-5.0); Sodium 135 mmol/L (137-145)
[2022-03-01 11:08] LABS: Parathyroid Intact 97.6 pg/mL (7.5-53.5)
[2022-03-01 16:22] LABS: Vitamin D 25 Hydroxy 40.1 ng/mL
[2022-03-04 11:18] LABS: Ionized Calcium 5.6 mg/dL (4.8-5.6)
== END 2022-03-01 09:26 | disposition home or self-care (01) ==
LOC: ANHLAB 09:30
PROVIDERS: PCP Family Medicine
DX: E21.3 Hyperparathyroidism, unspecified (principal)
CPT/HCPCS: 36415; 80069; 82306; 82330; 83970

== ENCOUNTER 2022-03-03 07:38 | Outpatient (CLI) | payer MEDICARE, OTHER, SELFPAY ==
[2022-03-03 09:56] LABS: Creatinine Urine 28.1 mg/dL
[2022-03-03 10:18] LABS: Creatinine 24 Hour Urine 1.2 gm/24 (0.8-1.8); Total Volume 24 Hour Urine 4300 ml
[2022-03-07 07:53] LABS: Total Volume 4300 mL; Urine Calcium 6.8 mg/dL
== END 2022-03-03 07:39 | disposition home or self-care (01) ==
PROVIDERS: PCP Family Medicine
DX: E21.3 Hyperparathyroidism, unspecified (principal)
CPT/HCPCS: 81050; 82340; 82570

== ENCOUNTER 2022-03-13 11:02 | Outpatient (CLI) | payer MEDICARE, OTHER, SELFPAY ==
[2022-03-13 12:52] LABS: Immunoglobulin A 179 mg/dL (70-400); Immunoglobulin G 657 mg/dL (700-1600); Immunoglobulin M 45 mg/dL (40-230)
== END 2022-03-13 11:03 | disposition home or self-care (01) ==
PROVIDERS: PCP Family Medicine; Visit Provider Family Medicine
DX: T78.40XA Allergy, unspecified, initial encounter (principal)
CPT/HCPCS: 36415; 82784

== ENCOUNTER 2022-05-08 08:45 | Outpatient (CLI) | payer MEDICARE, OTHER, SELFPAY ==
[2022-05-08 09:21] LABS: Alanine Aminotransferase 28 U/L (6-35); Albumin Level 4.5 g/dL (3.5-5.1); Alkaline Phosphatase 124 U/L (38-126); Anion Gap 11 mmol/L (8-16); Aspartate Amino Transferase 27 U/L (14-36); Bilirubin,Total 1.1 mg/dL (0.2-1.3); Blood Urea Nitrogen 19 mg/dL (7-17); Calcium 9.2 mg/dL (8.4-10.2); Carbon Dioxide 26 mmol/L (22-30); Chloride 99 mmol/L (98-107); Cholesterol 180 mg/dL (0-200); Estimated Glomerular Filt Rate > 60; Glucose 136 mg/dL (65-110); HDL Direct 50 mg/dL; Potassium 4.3 mmol/L (3.4-5.0); Sodium 136 mmol/L (137-145); Triglycerides 154 mg/dL (<150)
[2022-05-08 09:25] LABS: Hemoglobin A1C 6.9 % (<5.7)
[2022-05-08 09:32] LABS: LDL Cholesterol Direct 91 mg/dL
[2022-05-08 09:42] LABS: Vitamin D 25 Hydroxy 35.2 ng/mL
== END 2022-05-08 08:46 | disposition home or self-care (01) ==
LOC: ANHLAB 08:46
PROVIDERS: PCP Family Medicine; Visit Provider Nurse Practitioner
DX: E03.2 Hypothyroidism due to medicaments and other exogenous substances (principal); E11.9 Type 2 diabetes mellitus without complications; E78.2 Mixed hyperlipidemia; E55.9 Vitamin D deficiency, unspecified
CPT/HCPCS: 36415; 80053; 80061; 82306; 83036; 84443

== ENCOUNTER 2022-09-06 08:52 | Outpatient (CLI) | payer MEDICARE, OTHER, SELFPAY ==
[2022-09-06 10:32] LABS: Hematocrit 44.3 % (37.0-47.0); Hemoglobin 14.9 g/dL (12.0-15.0); Mean Corpuscular HGB Conc 33.6 g/dl (32-36); Mean Corpuscular Volume 89.1 fl (80-100); Mean Platelet Volume 9.6 fl (7.4-10.4); Platelet Count Result 239 k/mm3 (150-375); Red Blood Count 4.97 M/mm3 (4.2-5.4); Red Cell Distribution Width 12.9 % (11.5-14.5)
[2022-09-06 10:44] LABS: Alanine Aminotransferase 29 U/L (6-35); Albumin Level 4.6 g/dL (3.5-5.1); Alkaline Phosphatase 109 U/L (38-126); Anion Gap 7 mmol/L (8-16); Aspartate Amino Transferase 26 U/L (14-36); Bilirubin,Total 1.2 mg/dL (0.2-1.3); Blood Urea Nitrogen 20 mg/dL (7-17); Calcium 9.1 mg/dL (8.4-10.2); Carbon Dioxide 29 mmol/L (22-30); Chloride 101 mmol/L (98-107); Cholesterol 175 mg/dL (0-200); Estimated Glomerular Filt Rate > 60; Glucose 134 mg/dL (65-110); HDL Direct 50 mg/dL; Potassium 4.2 mmol/L (3.4-5.0); Sodium 137 mmol/L (137-145); Triglycerides 150 mg/dL (<150)
[2022-09-06 10:54] LABS: LDL Cholesterol Direct 97 mg/dL
[2022-09-06 11:05] LABS: Free T4 Free Thyroxine 1.66 ng/mL (0.78-2.19)
[2022-09-06 11:10] LABS: Hemoglobin A1C 6.7 % (<5.7)
== END 2022-09-06 08:53 | disposition home or self-care (01) ==
PROVIDERS: PCP Family Medicine; Visit Provider Family Medicine
DX: E11.9 Type 2 diabetes mellitus without complications (principal); E66.9 Obesity, unspecified; E03.2 Hypothyroidism due to medicaments and other exogenous substances; E78.2 Mixed hyperlipidemia; E88.81 Metabolic syndrome and other insulin resistance; I10 Essential (primary) hypertension
CPT/HCPCS: 36415; 80053; 80061; 83036; 84439; 84443; 85027

== ENCOUNTER 2022-09-17 08:03 | Emergency (ER) | payer MEDICARE, OTHER, SELFPAY ==
[2022-09-17 08:19] VITALS: BP 141/80; PULSE 78; RESP 16; TEMP 36.8; O2SAT 96
--- NOTE | 2022-09-17 08:19 | ED.URI ---
HPI - URI/Sore Throat General Chief Complaint: Upper Respiratory Infection Stated Complaint: cough,chest congestion Source: patient Mode of arrival: ambulatory Limitations: no limitations History of Present Illness HPI Narrative: 66-year-old female with a history of diabetes and HTN presented for c/o cough and chest congestion for 5 days. She states last night she was unable to sleep due to the cough and ?noise in the chest. ? Endorses cough is productive of yellow/green sputum. Currently denies shortness of breath, wheezing, sinus congestion, nausea, vomiting, diarrhea, lethargy, fevers or chills. Endorses sick contacts about a week ago with the child who had a runny nose. She is taking Mucinex for symptoms. Related Data Home Medications Medication Instructions Recorded Confirmed cholecalciferol (vitamin D3) 25 25 mcg PO DAILY 05/18/21 09/17/22 mcg (1,000 unit) capsule metoprolol succinate 25 mg 12.5 mg PO DAILY 06/12/22 09/17/22 tablet,extended release 24 hr Allergies Allergy/AdvReac Type Severity Reaction Status Date / Time pseudoephedrine AdvReac Intermediate Palpitation Verified 09/17/22 08:18 [From [employer]] s meperidine AdvReac Mild Nausea Verified 09/17/22 08:18 Review of Systems Review of Systems: CONSTITUTIONAL: Denies body aches, fever, chills, or sweats. EYES: Denies visual changes, redness, or discharge. ENT: Denies rhinorrhea, congestion, sore throat, or otalgia. CARDIOVASCULAR: Denies chest pain, palpitations, or edema. RESPIRATORY: Reports cough, Denies sob, wheezing. GASTROINTESTINAL: Denies abdominal pain, nausea, vomiting, or diarrhea. SKIN: Denies rash, itching, or wounds. MUSCULOSKELETAL: Denies back pain, joint pain, or myalgia. NEUROLOGIC: Denies headache All systems reviewed & are unremarkable except as noted in HPI and below PMFSH Past Medical History Medical History Essential (primary) hypertension Hepatitis C antibody test negative History of bone density study (~05/14/14) History of radioactive iodine thyroid ablation (~05/11/16) Iatrogenic hypothyroidism Metabolic syndrome Mixed hyperlipidemia MVP (mitral valve prolapse) repeat echo was negative for mitral valve prolapse Normal colonoscopy (~09/13/11) Palpitation Person under investigation for COVID-19 found to be negative Type 2 diabetes mellitus without complication Surgical History Surgical History History of cholecystectomy S/P parathyroidectomy Left side removed S/P tonsillectomy and adenoidectomy Family History Family History Mother Family history of elevated blood lipids Family history of malignant neoplasm Grandparent Carcinoma of colon, Onset Age: 66 Father Family history of diabetes mellitus in first degree relative, Onset Age: 78 Family history of coronary artery disease, Onset Age: 78 Patient's father is Family history of cardiovascular disease, Onset Age: 78 Diabetes mellitus, Onset Age: 78 Social History Social History Social History: 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 She is a full code. She smoked some in college. Rarely has an alcoholic beverage. Denies any marijuana or illicit drug use. The patient has 2 children of which she states are healthy. Smoking status: Never smoker Second hand tobacco smoke exposure: No Alcohol intake: current Drinks per week: 3 Substance use: never Substance use type: does not use Lack of Transportation: No Lack of Food: Never True Current Housing: I Have Housing Concerned About Future Housing: No Difficulty Paying Gas/Electric Bills: No Difficulty Paying for Meds:
== END 2022-09-17 08:48 | disposition home or self-care (01) ==
PROVIDERS: Emergency Provider Nurse Practitioner Family; PCP Family Medicine
DX: J40 Bronchitis, not specified as acute or chronic (principal); I10 Essential (primary) hypertension; E78.2 Mixed hyperlipidemia; I34.1 Nonrheumatic mitral (valve) prolapse; E11.9 Type 2 diabetes mellitus without complications; E03.2 Hypothyroidism due to medicaments and other exogenous substances; E88.81 Metabolic syndrome and other insulin resistance
CPT/HCPCS: 99213; G0463

== ENCOUNTER 2023-02-15 07:47 | Outpatient (CLI) | payer MEDICARE, OTHER, SELFPAY ==
[2023-02-15 09:02] LABS: Alanine Aminotransferase 29 U/L (6-35); Albumin Level 4.3 g/dL (3.5-5.1); Alkaline Phosphatase 85 U/L (38-126); Anion Gap 10 mmol/L (8-16); Aspartate Amino Transferase 30 U/L (14-36); Bilirubin,Total 1.1 mg/dL (0.2-1.3); Blood Urea Nitrogen 20 mg/dL (7-17); Calcium 9.1 mg/dL (8.4-10.2); Carbon Dioxide 26 mmol/L (22-30); Chloride 100 mmol/L (98-107); Cholesterol 170 mg/dL (0-200); Estimated Glomerular Filt Rate > 60; Glucose 138 mg/dL (65-110); HDL Direct 50 mg/dL; Potassium 4.5 mmol/L (3.4-5.0); Sodium 136 mmol/L (137-145); Triglycerides 134 mg/dL (<150)
[2023-02-15 09:04] LABS: Hemoglobin A1C 6.8 % (<5.7)
[2023-02-15 09:13] LABS: LDL Cholesterol Direct 90 mg/dL
[2023-02-15 09:32] LABS: Free T4 Free Thyroxine 1.86 ng/mL (0.78-2.19)
== END 2023-02-15 07:48 | disposition home or self-care (01) ==
PROVIDERS: PCP Family Medicine; Visit Provider Family Medicine
DX: E03.2 Hypothyroidism due to medicaments and other exogenous substances (principal); E11.9 Type 2 diabetes mellitus without complications; E66.9 Obesity, unspecified; E78.2 Mixed hyperlipidemia; I10 Essential (primary) hypertension
CPT/HCPCS: 36415; 80053; 80061; 83036; 84439; 84443

== ENCOUNTER 2023-05-30 13:44 | Outpatient (CLI) | payer MEDICARE, OTHER, SELFPAY ==
--- NOTE | ~2023-05-30 | DEXA_ITS ---
Bone Density Report Name: MARTINE LILLY Age: 67 Sex: Female Ethnicity: White Date of : 1955 Indication: postmenopausal; screening for osteoporosis; Referring Provider: THOM GONZALEZ Study: Bone densitometry was performed. Exam Date: May 30, 2023 Accession number: [id number] Bone Density: Region BMD T-score Z-score Classification AP Spine(L1-L4) 0.807 -2.2 -0.2 Osteopenia Femoral Neck (Left) 0.518 -3.0 -1.3 Osteoporosis Total Hip (Left) 0.761 -1.5 -0.1 Osteopenia Femoral Neck (Right) 0.500 -3.1 -1.4 Osteoporosis Total Hip (Right) 0.671 -2.2 -0.8 Osteopenia Total Hip Mean 0.716 -1.9 -0.5 Osteopenia World Health Organization criteria for BMD impression classify patients as: Normal (T-score at or above -1.0), Osteopenia (T-score between -1.0 and -2.5), or Osteoporosis (T-score at or below -2.5). 10-year Fracture Risk: FRAX not reported because: Some T-score for Spine Total or Hip Total or Femoral Neck at or below -2.5 Clinical Information Provided by Patient: Has used the following medications: Vitamin D, Calcium Patient maximum height was 65 Menopause Age: 49 Onset of menses at age 10 Number of children 3 Impression: The patient has osteoporosis, based on the Right Femoral Neck T-score. Discussion: INCREASED RISK OF FRACTURE. BONE DENSITY IS UNDESIRABLY LOW AT ONE OR MORE SKELETAL SITES, CONSISTENT WITH POSTMENOPAUSAL OSTEOPOROSIS. This patient's lowest T-score meets the World Health Organization's (WHO) criteria for osteoporosis at one or more sites (T-score -2.5 or below). In untreated patients, the risk of osteoporotic fracture increases approximately two-fold for each 1.0 SD decrease in T-score. Low bone density is not the only risk factor for fracture; also consider factors such as patient's age, frailty or poor health, risk of falling, risk of injury, previous osteoporotic fracture, family history of osteoporosis, cigarette smoking, low body weight, etc. Not everyone with low bone mineral density has osteoporosis; osteomalacia and other metabolic bone disorders should also be considered. Patients who have osteoporosis should be evaluated for specific diseases and conditions (secondary causes) that may cause or contribute to bone loss. The [place] [employer] of Clinical Endocrinologists (AACE) and National Osteoporosis Foundation (NOF) recommend pharmacologic intervention for all postmenopausal women whose T-score is in this range. The patient should follow a healthful lifestyle (good nutrition with adequate calcium and vitamin D, and appropriate weight-bearing exercise). Follow-Up: Consider a repeat BMD and Vertebral Fracture Assessment (VFA) exam in 2 years or sooner if medically necessary, to reassess this patient's status. Reported by: PARK on 05/30/2023 2:02:00 PM.
== END 2023-05-30 13:45 | disposition home or self-care (01) ==
PROVIDERS: PCP Family Medicine; Visit Provider Obstetrics & Gynecology
DX: M81.0 Age-related osteoporosis without current pathological fracture (principal)
CPT/HCPCS: 77080

== ENCOUNTER 2023-06-19 06:51 | Outpatient (CLI) | payer MEDICARE, OTHER, SELFPAY ==
[2023-06-19 07:41] LABS: Hematocrit 44.3 % (37.0-47.0); Hemoglobin 14.9 g/dL (12.0-15.0); Mean Corpuscular HGB Conc 33.6 g/dl (32-36); Mean Corpuscular Hemoglobin 29.3 pg (26-34); Mean Platelet Volume 9.3 fl (7.4-10.4); Platelet Count Result 257 k/mm3 (150-375); Red Blood Count 5.09 M/mm3 (4.2-5.4); Red Cell Distribution Width 12.5 % (11.5-14.5); White Blood Count 9.5 K/mm3 (4.5-10.0)
[2023-06-19 07:53] LABS: Alanine Aminotransferase 48 U/L (6-35); Albumin Level 4.2 g/dL (3.5-5.1); Alkaline Phosphatase 100 U/L (38-126); Anion Gap 9 mmol/L (8-16); Aspartate Amino Transferase 31 U/L (14-36); Bilirubin,Total 1.1 mg/dL (0.2-1.3); Blood Urea Nitrogen 15 mg/dL (7-17); Calcium 9.3 mg/dL (8.4-10.2); Carbon Dioxide 25 mmol/L (22-30); Chloride 102 mmol/L (98-107); Cholesterol 158 mg/dL (0-200); Estimated Glomerular Filt Rate > 60; Glucose 145 mg/dL (65-110); HDL Direct 46 mg/dL; Potassium 4.5 mmol/L (3.4-5.0); Sodium 136 mmol/L (137-145); Triglycerides 188 mg/dL (<150)
[2023-06-19 07:55] LABS: Immunoglobulin A 187 mg/dL (70-400); Immunoglobulin M 44 mg/dL (40-230)
[2023-06-19 08:03] LABS: LDL Cholesterol Direct 84 mg/dL
[2023-06-19 08:18] LABS: Free T4 Free Thyroxine 1.84 ng/mL (0.78-2.19)
[2023-06-19 08:37] LABS: Hemoglobin A1C 7.1 % (<5.7)
[2023-06-21 21:11] LABS: Immunoglobulin G, Serum 555 mg/dL (600-1540); Immunoglobulin G1 331 mg/dL (382-929); Immunoglobulin G2 158 mg/dL (241-700); Immunoglobulin G3 14 mg/dL (22-178)
[2023-06-23 02:46] LABS: Immunoglobulin E 22 kU/L (<=114)
== END 2023-06-19 06:52 | disposition home or self-care (01) ==
PROVIDERS: PCP Family Medicine; Visit Provider Family Medicine
DX: E03.2 Hypothyroidism due to medicaments and other exogenous substances (principal); E11.9 Type 2 diabetes mellitus without complications; E66.9 Obesity, unspecified; E78.2 Mixed hyperlipidemia; I10 Essential (primary) hypertension; R76.8 Other specified abnormal immunological findings in serum; D80.1 Nonfamilial hypogammaglobulinemia
CPT/HCPCS: 36415; 80053; 80061; 82784; 82785; 82787; 83036; 84439; 84443; 85027

== ENCOUNTER 2023-10-23 06:37 | Outpatient (CLI) | payer MEDICARE, OTHER, SELFPAY ==
[2023-10-23 07:38] LABS: Hemoglobin A1C 6.5 % (<5.7)
[2023-10-23 07:48] LABS: LDL Cholesterol Direct 85 mg/dL
[2023-10-23 07:57] LABS: Alanine Aminotransferase 28 U/L (6-35); Albumin Level 4.5 g/dL (3.5-5.1); Alkaline Phosphatase 100 U/L (38-126); Anion Gap 11 mmol/L (4-12); Aspartate Amino Transferase 30 U/L (14-36); Blood Urea Nitrogen 25 mg/dL (7-17); Carbon Dioxide 22 mmol/L (22-30); Chloride 103 mmol/L (98-107); Cholesterol 149 mg/dL (0-200); Estimated Glomerular Filt Rate > 60; Glucose 145 mg/dL (65-110); HDL Direct 49 mg/dL; Potassium 4.5 mmol/L (3.4-5.0); Sodium 136 mmol/L (137-145); Triglycerides 163 mg/dL (<150)
[2023-10-23 08:02] LABS: Appearance Urine Clear (Clear); Bilirubin Urine Negative (Negative); Blood Urine Negative (Negative); Color Urine Yellow (Yellow); Glucose Urine UA Negative (Negative); Ketones Urine Negative (Negative); Leukocyte Esterase Ur Negative LEU/UL (Negative); Nitrate Urine Negative (Negative); Protein Urine Negative (Negative); Specific Grav Ur 1.016 (1.001-1.035); Urobilinogen Urine 0.2 mg/dL (<2.0)
[2023-10-23 08:10] LABS: Add Urine Microscopic? YES
== END 2023-10-23 06:38 | disposition home or self-care (01) ==
PROVIDERS: PCP Nurse Practitioner; Visit Provider Nurse Practitioner
DX: E78.2 Mixed hyperlipidemia (principal); E11.9 Type 2 diabetes mellitus without complications; E03.2 Hypothyroidism due to medicaments and other exogenous substances
CPT/HCPCS: 36415; 80053; 80061; 81001; 83036; 84443

== ENCOUNTER 2024-03-03 08:32 | Outpatient (CLI) | payer MEDICARE, OTHER, SELFPAY ==
[2024-03-03 09:07] LABS: Alanine Aminotransferase 33 U/L (6-35); Albumin Level 4.1 g/dL (3.5-5.1); Alkaline Phosphatase 76 U/L (38-126); Anion Gap 11 mmol/L (4-12); Aspartate Amino Transferase 32 U/L (14-36); Blood Urea Nitrogen 19 mg/dL (7-17); Calcium 9.1 mg/dL (8.4-10.2); Carbon Dioxide 27 mmol/L (22-30); Chloride 94 mmol/L (98-107); Cholesterol 148 mg/dL (0-200); Estimated Glomerular Filt Rate > 60; Glucose 128 mg/dL (65-110); HDL Direct 53 mg/dL; Potassium 4.3 mmol/L (3.4-5.0); Sodium 132 mmol/L (137-145); Triglycerides 118 mg/dL (<150)
[2024-03-03 09:18] LABS: LDL Cholesterol Direct 79 mg/dL
[2024-03-03 09:35] LABS: Thyroid Stimulating Hormone 0.702 uIU/mL (0.465-4.680)
[2024-03-03 10:32] LABS: Creatinine Urine 99.3 mg/dL
[2024-03-03 10:39] LABS: Hemoglobin A1C 6.8 % (<5.7)
[2024-03-03 10:39] LABS: MALB Creatinine Ratio < 6.0 mg/g (0-30); Microalbumin Urine Random < 6.0 mg/L (0-16.7)
[2024-03-03 10:47] LABS: Vitamin D 25 Hydroxy 49.1 ng/mL
== END 2024-03-03 08:33 | disposition home or self-care (01) ==
PROVIDERS: PCP Nurse Practitioner; Visit Provider Nurse Practitioner
DX: E55.9 Vitamin D deficiency, unspecified (principal); E11.9 Type 2 diabetes mellitus without complications; E78.2 Mixed hyperlipidemia; E03.2 Hypothyroidism due to medicaments and other exogenous substances
CPT/HCPCS: 36415; 80053; 80061; 82043; 82306; 83036; 84443

== ENCOUNTER 2024-08-04 07:09 | Outpatient (CLI) | payer MEDICARE, OTHER, SELFPAY ==
--- OUTSIDE RECORDS SUMMARY | 2024-08-04 07:17 | XMS_ITS | Encounter Summary ---
Author Organization [facility] Healthcare Address [address] [place] [address] Care Team Providers Care Wood Preparation Supervisor Name Role Phone Priscilla Glass DO Primary Care Provider + [phone] Kyara Sommers MD Unavailable [phone] Encounter Details Date Type Department Care Team (Late st Contact Info) Description 03/11/2022 Documentation [facility] Surgeon [address] [place] [address] sImael Malik Social History Tobacco Use Types Packs/Day Years Used Date Smoking Tobacco: Never Comments Unknown Sex and Gender Information Value Date Recorded Sex Assigned at Not on file 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
--- OUTSIDE RECORDS SUMMARY | 2024-08-04 07:17 | XMS_ITS | Encounter Summary ---
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
--- OUTSIDE RECORDS SUMMARY | 2024-08-04 07:18 | XMS_ITS | Clinical Summary ---
Author Organization [facility] Address [address] [place] [address] Care Team Providers Care Health Care Analyst Name Role Phone Priscilla Glass DO Primary Care Provider [phone] MatthieuKyara ross MD Unavailable [phone] Allergies Active Allergy Reactions Criticality Noted Date Comments Meperidine Nausea & Vomiting Low 09/11/2023 Pseudoephedrine Palpitations Low 09/11/2023 Medications atorvastatin (LIPITOR) 10 mg tabletIndicatio ns:hyperlipidem ia,nightly Take 1 tablet (10 mg total) by mouth every other day 2 Active levothyroxine (SYNTHROID) 125 mcg tabletIndicatio ns:hypothyroidi sm Take 1 tablet (125 mcg total) by mouth sock lining stitcher before breakfast 2 Active lisinopriL (PRINIVIL,ZESTR IL) 20 mg tabletIndicatio ns:hypertension Take 1 tablet (20 mg total) by mouth 2 (two) times a day 2 Active metFORMIN XR (GLUCOPHAGE XR) 500 mg 24 hr tabletIndicatio ns:type 2 diabetes mellitus Take 2 tablets (1,000 mg total) by mouth 2 (two) times a day 2 Active cholecalciferol (VITAMIN D-3) 2000 unit capsuleIndicati ons:supplement Take 0.5 capsules (1,000 Units total) by mouth sock lining stitcher before breakfast Active metoprolol XL (TOPROL-XL) 25 mg extended release tabletIndicatio ns:hypertension Take 0.5 tablets (12.5 mg total) by mouth every morning Active amLODIPine (Norvasc) 5 mg tablet Active raloxifene (EVISTA) 60 mg tabletIndicatio ns:prevention of breast cancer in high risk women Take 1 tablet (60 mg total) by mouth daily 30 tablet 11 4 09/11/19 Active Active Problems Problem Noted Date Diagnosed Date Encounter for screening mammogram for breast can cer 09/11/2023 At high risk for breast cancer 09/11/2023 Atypical lobular hyperplasia (ALH) of left breas t 05/17/2023 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 07/16/2022 Hypogammaglobulinemia 07/16/2022 Hyperparathyroidism 02/15/2022 Encounters Date Type Department Care Team Description 07/28/2024 3:00 PM MASTER PRINTER Telemedicine [facility]ology [address] [place] [address] [address] [place] [address] Jg Jacobo MD Hypogammaglobulinemia (HCC) (Primary Dx) 07/20/2024 Telephone [facility] [address] [place] [phone] Alma Wilkerson RN 07/20/2024 Telephone [facility] [address] [place] [phone] Joyce Lance 07/01/2024 Orders Only [facility] [address] [place] [phone] Jg Jacobo MD Hypogammaglobulinemia (HCC) (Primary Dx) 07/01/2024 Telephone [facility] [address] [place] [address] [place] [phone] Alma Wilkerson RN from Last 3 Months Immunizations Immunization Administration Dates Next Due Moderna SARS-CoV-2 Monovalen t Vaccination (12+ YRS) 11/01/2021 Pfizer SARS-CoV-2 Monovalent Vaccination (12+ Yrs) PURPLE 03/24/2021,06/17/2020,05/27/2020 Surgical History Surgery Date Site/Laterality Comments BREAST BIOPSY 12/30/2018 Left CHOLECYSTECTOMY 06/10/1983 - 06/09/1984 DILATION AND CURETTAGE OF UTERUS TONSILLECTOMY BREAST BIOPSY 04/18/2023 Left PARATHYROIDECTOMY 06/10/2021 - 06/09/2022 Medical History Medical History Date Comments Hypertension Diabetes mellitus (HCC) Thyroid disease Motion sickness Family History Medical History Relation Name Comments Breast cancer Cousin , age 77y, [place] Father Diabetes Father Breast cancer Father's Sister Hyperlipidemia Mother Kidney disease Mother Relation Name Status Comments Cousin Father Father's Sister Mother Social History Tobacco Use Types Packs/Day Years Used Date Smoking Tobacco: Never Smokeless Tobacco: Never Tobacco Cessation:Counseling Given: Not Answered AUDIT-C Answer Date Recorded Q1: How often do you have a drink containing alc ohol? 2-3 times a week 06/28/2023 Q2: How many drinks containi ng alcohol do you have on a typical day when you are drinking? 1 or 2 06/28/2023 Q3: How often do you have si x or more drinks on one occasion? Never 06/28/2023 Personal Safety Answer Date Recorded Have you ever been in or are you currently in a harmful physical or emotional relationship or is someone making you feel afraid or unsafe? 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 MASTER PRINTER Gender Identity Not on file Sexual Orientation Not on file Obstetrics History Para Term AB IAB SAB Ectopic Multiple Livin g Live Births 3 2 2 Date Outcome GA Total Labor Labor/2nd/3rd Weight Sex Type Anes PTL Madai A1 A5 Name Clin Term Term Comments Post Menopause Last Filed Vital Signs Vital Sign Reading Time Taken Comments Blood Pressure 136/78 04/29/2024 2:55 PM MASTER PRINTER Pulse 61 04/29/2024 2:55 PM MASTER PRINTER Temperature 36.8 C (98.2 F) 04/29/2024 2:55 PM MASTER PRINTER Respiratory Rate 16 04/29/2024 2:55 PM MASTER PRINTER Oxygen Saturation 99% 04/29/2024 2:55 PM MASTER PRINTER Inhaled Oxygen Concentration - - Weight 100 kg (220 lb 6.4 oz) 04/29/2024 2:55 PM MASTER PRINTER Height 165 cm (5' 4.96 ) 07/16/2023 10:39 AM MASTER PRINTER Body Mass Index 36.72 07/16/2023 10:39 AM MASTER PRINTER Plan of Treatment Health Maintenance Due Date Last Done Comments Colon Cancer Screening-Colonoscopy 1954 Depression Screening 1954 Hepatitis C Screening 1954 Osteoporosis Screening-Bone Density Scan 1954 DTaP/Tdap/Td Vaccine (1 - Tdap) 1965 Hepatitis B Screening 1972 Pneumococcal vaccine 65+ (1 of 1 - PCV) 2004 Zoster Vaccine (1 of 2) 2004 Well Visit 65+ 12/02/2019 Covid-19 Vaccine (5 - 2023-2 5 season) 2024 11/01/2021, 03/24/2021, 06/17/2020, Additional history exists Influenza Vaccine (#1) 2024 Fall Risk Assessment 06/28/2024 06/28/2023 Breast Cancer Screening-Mammogram 04/29/2025 04/29/2024, 03/19/2023, 02/26/2022, Additional history exists Medical Devices Implanted Type Area Logistics Specialist Device Identifier Shelf Expiration Date Model / Serial / Lot [employer] SupplyFrame Rigid End Hourglass Marker Breast Biopsy Titanium Pwnqxss-[id number]-1c -13 - [id number] Implanted:Qty: 1 on 04/18/2023 at [facility] [employer] [id number] 09/05/2024 TRIMARK-E VIVA-2S-1 3 / / [id number] [employer] Ghiatas 20ga 20cm 7cm Beaded Needle Breast Wire Localization [id number] - [id number] Implanted:Qty: 1 on 06/28/2023 at [facility] Left: Breast [employer] [id number] / / Procedures Procedure Name Priority Date/Time Associated Diagnosis Comments IMMUNOGLOBULIN PROFILE Routine 07/17/2024 9:59 AM MASTER PRINTER TEST AUTHORIZATION Routine 07/17/2024 9: 59 AM MASTER PRINTER CBC WITH AUTO DIFFERENTIAL Routine 07/17/2024 9:59 AM MASTER PRINTER CRP (ACUTE PHASE) Routine 07/17/2024 9:5 9 AM MASTER PRINTER Hypogammaglobulin emia (HCC) ERYTHROCYTE SEDIMENTATION RATE Routine 07/17/2024 9:59 AM MASTER PRINTER Hypogammaglobulin emia (HCC) COMPREHENSIVE METABOLIC PANEL (OUTREACH) Routine 07/17/2024 9:59 AM MASTER PRINTER Hypogammaglobulin emia (HCC) SCREENING MAMMOGRAM BILATERAL W CALOS Schedule Routine, Read Routine (OP Routine) 04/29/2024 1:17 PM MASTER PRINTER Encounter for screening mammogram for breast cancer Breast cancer screening by mammogram from Last 3 Months or Most Recently Relevant to Health Maintenance Results * TEST AUTHORIZATION (07/17/2024 9:59 AM MASTER PRINTER) Test name JAYMIE Mayo [facility] TEST CODE: [id number] [facility] CLIENT CONTACT: THELMA LUCAS [employer] Report Always Message Signature [facility] Comment: The laboratory testing on this patient was verbally requested or confirmed by the ordering physician or his or her authorized small business representative after contact with an employee of [employer]. Federal regulations require that we maintain on file written authorization for all laboratory testing. Accordingly we are asking that the ordering physician or his or her authorized small business representative sign a copy of this report and promptly return it to the client operations manager. Signature: Comment [facility] Comment: Fax number: [phone] 07/17/2024 9:59 AM MASTER PRINTER 07/17/2024 10:00 AM MASTER PRINTER Jg Jacobo MD LAB BLOOD ORDERABLES Final Res ult [facility] [address] [place] [address] * (ABNORMAL) Immunoglobulin profile (07/17/2024 9:59 AM MASTER PRINTER) [facility] Immunoglobulin A 154 70 - 320 mg/dL [facility] Immunoglobulin G 515(L) 600 - 1,540 mg/dL [facility] Immunoglobulin M 38(L) 50 - 300 mg/dL [facility] 07/17/2024 9:59 AM MASTER PRINTER 07/17/2024 10:00 AM MASTER PRINTER us Jg Jacobo MD LAB BLOOD ORDERABLES Final Res ult [facility] [address] [place] [address] * (ABNORMAL) Comprehensive metabolic panel (Outreach) (07/17/2024 9:59 AM MASTER PRINTER) [facility] Glucose 282(H) 65 - 99 mg/dL [facility] Comment: Fasting reference interval For someone without known diabetes, a glucose value >125 mg/dL indicates that they may have diabetes and this should be confirmed with a follow-up test. BUN 24 7 - 25 mg/dL [facility] Creatinine 0.98 0.50 - 1.05 mg/dL [facility] eGFR 62 > OR = 60 mL/min/1.7 3m2 [facility] BUN/creat ratio SEE NOTE: 6 - 22 (calc) [facility] Comment: Not Reported: BUN and Creatinine are within reference range. Sodium 137 135 - 146 mmol/L [facility] Potassium 4.1 3.4 - 4.8 mmol/L [facility] Chloride 103 98 - 110 mmol/L [facility] CO2 23 20 - 32 mmol/L [facility] Calcium 8.9 8.6 - 10.4 mg/dL [facility] Protein, Total 6.0(L) 6.4 - 8.4 g/dL [facility] Albumin 4.0 3.6 - 5.1 g/dL [facility] Globulin 2.0(L) 2.2 - 4.0 g/dL (calc) [facility] Alb/glob ratio 2.0 0.9 - 2.3 (calc) [facility] Bilirubin, total 0.6 0.2 - 1.2 mg/dL [facility] Alk phos 76 37 - 153 U/L [facility] AST 25 10 - 35 U/L [facility] ALT (SGPT) 30(H) 6 - 29 U/L [facility] Blood 07/17/2024 9:59 AM MASTER PRINTER 07/17/2024 10:00 AM MASTER PRINTER us Jg Jacobo MD LAB BLOOD ORDERABLES Final Res ult [facility] [address] [place] [address] * CBC with auto differential (07/17/2024 9:59 AM MASTER PRINTER) WBC 8.1 3.8 - 10.8 Thousand/u L [facility] RBC, POC 4.29 3.80 - 5.10 Million/uL [facility] Hgb 13.0 11.7 - 15.5 g/dL [facility] Hct 39.4 35.0 - 45.0 % [facility] MCV 91.8 80.0 - 100.0 fL [facility] MCH 30.3 27.0 - 33.0 pg [facility] MCHC 33.0 32.0 - 36.0 g/dL [facility] Comment: For adults, a slight decrease in the calculated MCHC value (in the range of 30 to 32 g/dL) is most likely not clinically significant; however, it should be interpreted with caution in correlation with other red cell parameters and the patient's clinical condition. Rdw 12.3 11.0 - 15.0 % [facility] Platelets 218 140 - 400 Thousand/u L [facility] MPV 10.4 7.5 - 12.5 fL [facility] Neutrophils, abs 4,771 1,500 - 7,800 cells/uL [facility] Lymphocytes, abs 2,714 850 - 3,900 cells/uL [facility] Monocyte abs 454 200 - 950 cells/uL [facility] Eosinophils, abs 113 15 - 500 cells/uL [facility] Basophils, abs 49 0 - 200 cells/uL [facility] Neutrophils 58.9 % [facility] Lymphocyte pct 33.5 % [facility] Monocytes 5.6 % [facility] Eosinophils 1.4 % [facility] Basophils 0.6 % [facility] 07/17/2024 9:59 AM MASTER PRINTER 07/17/2024 10:00 AM MASTER PRINTER Jg Jacobo MD LAB BLOOD ORDERABLES Final Res ult Performing Organization Address [facility] Co de Phone Number [facility] [address] [place] [address] * Erythrocyte sedimentation rate (07/17/2024 9:59 AM MASTER PRINTER) Pathologist [facility] Erythrocyte sedimentation rate 2 < OR = 30 mm/h [facility] Blood 07/17/2024 9:59 AM MASTER PRINTER 07/17/2024 10:00 AM MASTER PRINTER Jg Jacobo MD LAB BLOOD ORDERABLES Final Res ult Performing Organization Address [facility] de Phone Number [facility] [address] [place] [address] * CRP (acute phase) (07/17/2024 9:59 AM MASTER PRINTER) C-RP <3.0 <8.0 mg/L [facility] Blood 07/17/2024 9:59 AM MASTER PRINTER 07/17/2024 10:00 AM MASTER PRINTER us Jg Jacobo MD LAB BLOOD ORDERABLES Final Res ult [facility] [address] [place] [address] * Screening Mammogram Bilateral W Calos (04/29/2024 1:17 PM MASTER PRINTER) Anatomical Region Laterality Modality Breast Bilateral Mammography Impressions 04/29/2024 3:44 PM MASTER PRINTER BI-RADS ATLAS category (overall): 2 - Benign There is no mammographic evidence of malignancy. A 1 year screening mammogram is recommended. The patient has been or will be contacted. We recommend annual screening mammography for women at average risk of breast cancer beginning at age 40, based on guidelines of the [employer] (ACR Practice Parameter for the Performance of Screening and Diagnostic Mammography) and [employer]. For women with and elevated risk of breast cancer, please refer to the ACR Practice Parameter for specific screening recommendations. The patient will be entered into a reminder system with a target due date of 1 year for her next screening exam. Narrative 04/29/2024 3:44 PM MASTER PRINTER Screening Mammogram Bilateral W Calos: 04/29/24 The study was acquired using full field digital technology and interpreted from soft copy. 2D digital mammographic views, as well as 3D digital tomosynthesis were performed in the CC and MLO projections. This study was resulted using Computer-Aided Detection (CAD). CLINICAL: Encounter for screening mammogram for breast cancer Breast cancer screening by mammogram. No relevant medical history has been documented for this patient. History of breast cancer in Father's Sister, Cousin. COMPARISONS: 10/07/2023 MRI Breast Bilateral W WO Contrast 06/28/2023 Radiologic Examination of Surgical Specimen 06/28/2023 Mammo Guided Localization Breast Left 04/18/2023 Calos Post Clip Placement Left 04/18/2023 Stereotactic Breast Biopsy Left 04/02/2023 Diagnostic Mammogram Left W Calos 03/19/2023 Screening Mammogram Bilateral W Calos 02/26/2022 Screening Mammogram Bilateral W Calos 01/12/2021 Screening Mammogram Bilateral W Calos 12/22/2019 Screening Mammogram Bilateral W Calos BREAST TISSUE: There are scattered areas of fibroglandular density. FINDINGS: There is a stable benign mass in the posterior upper outer right breast. There are two biopsy marking clips in the left breast. There is no new suspicious finding in either breast on mammogram. Kyara Sommers MD IMG MAMMO PROCEDURES Final Result from Last 3 Months or Most Recently Relevant to Health Maintenance Insurance [facility] MEDICARE MEDICARE [facility] MEDICARE [facility]IC[facility] [place] [id number] Advance Directives For more information, please contact: [phone] * Full Code (Latest Code Status on File) Date Activated Date Inactivated Comments 04/06/2022 12:58 PM 04/06/2022 8:41 PM Care Teams Health Care Analyst Relationship Specialty Start Date End Date Priscilla Glass DO PCP - General Family Medicine 01/03/22 Kyara Sommers MD [address] [facility] [address] DIV IM MEDICAL ONCOLOGY, [address] [place] [address] Surgeon Breast Surgery 1/31/24
--- OUTSIDE RECORDS SUMMARY | 2024-08-04 07:18 | XMS_ITS | Referral Summary ---
Author Organization [facility] Address [address] [place] [address] Care Team Providers Care Instructional Technology Facilitator Name Role Phone Priscilla Glass DO Primary Care Provider [phone] MatthieuKyara ross MD Unavailable [phone] Encounters Date Type Department Care Team Description 07/28/2024 3:00 PM MOBILE PET GROOMER Telemedicine [facility] [address] [place] [address] [address] [place] [address] Jg Jacobo MD Hypogammaglobulinemia (HCC) (Primary Dx) 07/20/2024 Telephone [facility] [address] [place] [address] [place] [phone] Alma Wilkerson, RN 07/20/2024 Telephone [facility] [address] [place] [address] [place] [phone] Joyce Lance 07/01/2024 Orders Only [facility] [address] [place] [address] [place] [phone] Jg Jacobo MD Hypogammaglobulinemia (HCC) (Primary Dx) 07/01/2024 Telephone [facility] [address] [place] [address] [place] [phone] Alma Wilkerson, RN from Last 3 Months Allergies Active Allergy Reactions Criticality Noted Date Comments Meperidine Nausea & Vomiting Low 09/11/2023 Pseudoephedrine Palpitations Low 09/11/2023 Medications atorvastatin (LIPITOR) 10 mg tabletIndicatio ns:hyperlipidem ia,nightly Take 1 tablet (10 mg total) by mouth every other day 2 Active levothyroxine (SYNTHROID) 125 mcg tabletIndicatio ns:hypothyroidi sm Take 1 tablet (125 mcg total) by mouth laundry sorter before breakfast 2 Active lisinopriL (PRINIVIL,ZESTR IL) [...] 0.5 capsules (1,000 Units total) by mouth laundry sorter before breakfast Active metoprolol XL (TOPROL-XL) 25 mg extended release tabletIndicatio ns:hypertension Take 0.5 tablets (12.5 mg total) by mouth every morning Active amLODIPine (Norvasc) 5 mg tablet Active raloxifene (EVISTA) 60 mg tabletIndicatio ns:prevention of breast cancer in high risk women Take 1 tablet (60 mg total) by mouth daily 30 tablet 11 4 09/11/19 25 Active Active Problems Problem Noted Date Diagnosed Date Encounter for screening mammogram for breast can cer 09/11/2023 At high risk for breast cancer 09/11/2023 Atypical lobular hyperplasia (ALH) of left breas t 05/17/2023 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 07/16/2022 Hypogammaglobulinemia 07/16/2022 Hyperparathyroidism 02/15/2022 Immunizations Immunization Administration Dates Next Due Moderna SARS-CoV-2 Monovalen t Vaccination (12+ YRS) 11/01/2021 Pfizer SARS-CoV-2 Monovalent Vaccination (12+ Yrs) PURPLE 03/24/2021,06/17/2020,05/27/2020 Social History Tobacco Use Types Packs/Day Years [...] on file Legal Sex Female 3:55 AM MOBILE PET GROOMER Gender Identity Not on file Sexual Orientation Not on file Last Filed Vital Signs Vital Sign Reading Time Taken Comments Blood Pressure 136/78 04/29/2024 2:55 PM MOBILE PET GROOMER Pulse 61 04/29/2024 2:55 PM MOBILE PET GROOMER Temperature 36.8 C (98.2 F) 04/29/2024 2:55 PM MOBILE PET GROOMER Respiratory Rate 16 04/29/2024 2:55 PM MOBILE PET GROOMER Oxygen Saturation 99% 04/29/2024 2:55 PM MOBILE PET GROOMER Inhaled Oxygen Concentration - - Weight 100 kg (220 lb 6.4 oz) 04/29/2024 2:55 PM MOBILE PET GROOMER Height 165 cm (5' 4.96 ) 07/16/2023 10:39 AM MOBILE PET GROOMER Body Mass Index 36.72 07/16/2023 10:39 AM MOBILE PET GROOMER Plan of Treatment Not on file Medical Devices Implanted Type Area Digital Field Service Technician Device Identifier Shelf Expiration Date Model / Serial / Lot [employer] Trimark Rigid End Hourglass Marker Breast Biopsy Titanium [id number] -[id number] - [id number] Implanted:Qty: 1 on 04/18/2023 at [facility] [employer] [id number] 09/05/2024 TRIMARK-E VIVA-2S-1 3 / / [id number] [place] Peripheral V[employer] Ghiatas 20ga 20cm 7cm Beaded Needle Breast Wire Localization [id number] - [id number] Implanted:Qty: 1 on 06/28/2023 at [facility] Left: Breast [employer] [id number] / / Procedures Procedure Name Priority Date/Time Associated Diagnosis Comments IMMUNOGLOBULIN PROFILE Routine 07/17/2024 9:59 AM MOBILE PET GROOMER TEST AUTHORIZATION Routine 07/17/2024 9: 59 AM MOBILE PET GROOMER CBC WITH AUTO DIFFERENTIAL Routine 07/17/2024 9:59 AM MOBILE PET GROOMER CRP (ACUTE PHASE) Routine 07/17/2024 9:5 9 AM MOBILE PET GROOMER Hypogammaglobulin emia (HCC) ERYTHROCYTE SEDIMENTATION RATE Routine 07/17/2024 9:59 AM MOBILE PET GROOMER Hypogammaglobulin emia (HCC) COMPREHENSIVE METABOLIC PANEL (OUTREACH) Routine 07/17/2024 9:59 AM MOBILE PET GROOMER Hypogammaglobulin emia (HCC) SCREENING MAMMOGRAM BILATERAL W CALOS Schedule Routine, Read Routine (OP Routine) 04/29/2024 1:17 PM MOBILE PET GROOMER Encounter for screening mammogram for breast cancer Breast cancer screening by mammogram from Last 3 Months or Most Recently Relevant to Health Maintenance Results * TEST AUTHORIZATION (07/17/2024 9:59 AM MOBILE PET GROOMER) Test name IMMUNOGLOBULINS Ques [facility] TEST CODE: [id number] [facility] CLIENT CONTACT: THELMA LUCAS [employer] Report Always Message Signature [employer] Comment: The laboratory testing on this patient was verbally requested or confirmed by the ordering physician or his or her authorized customer service representative after contact with an employee of [facility]. Federal regulations require that we maintain on file written authorization for all laboratory testing. Accordingly we are asking that the ordering physician or his or her authorized customer service representative sign a copy of this report and promptly return it to the client delivery specialist. Signature: Comment [facility] Comment: Fax number: [phone] 07/17/2024 9:59 AM MOBILE PET GROOMER 07/17/2024 10:00 AM MOBILE PET GROOMER Jg Jacobo MD LAB BLOOD ORDERABLES Final Res ult Performing Organization Address City/[facility] [address]/[facility] Co de Phone Number FROYLAN [facility] [address] [place] [address] * (ABNORMAL) Immunoglobulin profile (07/17/2024 9:59 AM MOBILE PET GROOMER) Pathologist [facility] Immunoglobulin A 154 70 - 320 mg/dL [facility] Immunoglobulin G 515(L) 600 - 1,540 mg/dL [facility] Immunoglobulin M 38(L) 50 - 300 mg/dL [facility] 07/17/2024 9:59 AM MOBILE PET GROOMER 07/17/2024 10:00 AM MOBILE PET GROOMER Jg Jacobo MD LAB BLOOD ORDERABLES Final Res ult Performing Organization Address [facility] [address]/[facility] de Phone Number FROYLAN [facility] [address] [place] [address] * (ABNORMAL) Comprehensive metabolic panel (Outreach) (07/17/2024 9:59 AM MOBILE PET GROOMER) Glucose 282(H) 65 - 99 mg/dL [facility] [...] [facility] Blood 07/17/2024 9:59 AM MOBILE PET GROOMER 07/17/2024 10:00 AM MOBILE PET GROOMER us Jg Jacobo MD LAB BLOOD ORDERABLES Final Res ult QUEST [facility] [address] [place] [address] * CBC with auto differential (07/17/2024 9:59 AM MOBILE PET GROOMER) WBC 8.1 3.8 - 10.8 Thousand/u L [...] % [facility] 07/17/2024 9:59 AM MOBILE PET GROOMER 07/17/2024 10:00 AM MOBILE PET GROOMER Jg Jacobo MD LAB BLOOD ORDERABLES Final Res ult Performing Organization Address City/[facility] [address]/ZIP Co de Phone Number QUEST [facility] [address] [place] [address] * Erythrocyte sedimentation rate (07/17/2024 9:59 AM MOBILE PET GROOMER) Erythrocyte sedimentation rate 2 < OR = 30 mm/h [facility] Blood 07/17/2024 9:59 AM MOBILE PET GROOMER 07/17/2024 10:00 AM MOBILE PET GROOMER us Jg Jacobo MD LAB BLOOD ORDERABLES Final Res ult QUEST [facility] [address] [place] [address] * CRP (acute phase) (07/17/2024 9:59 AM MOBILE PET GROOMER) C-RP <3.0 <8.0 mg/L [facility] Blood 07/17/2024 9:59 AM MOBILE PET GROOMER 07/17/2024 10:00 AM MOBILE PET GROOMER Jg Jacobo MD LAB BLOOD ORDERABLES Final Res ult FROYLAN [facility] [address] [place] [address] * Screening Mammogram Bilateral W Calos (04/29/2024 1:17 PM MOBILE PET GROOMER) Anatomical Region Laterality Modality Breast Bilateral Mammography Impressions 04/29/2024 3:44 PM MOBILE PET GROOMER BI-RADS ATLAS category (overall): 2 - Benign There is no mammographic evidence of malignancy. A 1 year screening mammogram is recommended. The patient has been or will be contacted. We recommend annual screening mammography for women at average risk of breast cancer beginning at age 40, based on guidelines of the [place] [employer] (ACR Practice Parameter for the Performance of Screening and Diagnostic Mammography) and [place] [employer]. For women with and elevated risk of breast cancer, please refer to the ACR Practice Parameter for specific screening recommendations. The patient will be entered into a reminder system with a target due date of 1 year for her next screening exam. Narrative 04/29/2024 3:44 PM MOBILE PET GROOMER Screening Mammogram Bilateral W Calos: 04/29/24 The [...] Most Recently Relevant to Health Maintenance Insurance [facility]PPO Address: [address] [address] [place] [address] FOR[facility]LY [facility] MEDICARE MEDICARE [facility] MEDICARE [facility] MEDICARE [facility] Advance Directives For more information, please contact: [phone] * Full Code (Latest Code Status on File) Date Activated Date Inactivated Comments 04/06/2022 12:58 PM 04/06/2022 8:41 PM Care Teams Instructional Technology Facilitator Relationship Specialty Start Date End Date Mary AnndaxMora jimenezdeng Carlson DO PCP - General Family Medicine 01/03/22 Kyara Sommers MD [address] DIV IM MEDICAL ONCOLOGY, [facility] [address] [place] [address] Surgeon Breast Surgery 07/10/23
[2024-08-04 07:47] LABS: Hematocrit 40.6 % (37.0-47.0); Hemoglobin 13.7 g/dL (12.0-15.0); Mean Corpuscular HGB Conc 33.7 g/dl (32-36); Mean Corpuscular Hemoglobin 30.2 pg (26-34); Mean Corpuscular Volume 89.6 fl (80-100); Mean Platelet Volume 9.6 fl (7.4-10.4); Platelet Count Result 206 k/mm3 (150-375); Red Blood Count 4.53 M/mm3 (4.2-5.4); Red Cell Distribution Width 12.4 % (11.5-14.5); White Blood Count 8.4 K/mm3 (4.5-10.0)
[2024-08-04 07:58] LABS: Alanine Aminotransferase 38 U/L (6-35); Albumin Level 3.9 g/dL (3.5-5.1); Alkaline Phosphatase 82 U/L (38-126); Anion Gap 9 mmol/L (4-12); Aspartate Amino Transferase 35 U/L (14-36); Bilirubin,Total 0.9 mg/dL (0.2-1.3); Blood Urea Nitrogen 17 mg/dL (7-17); Carbon Dioxide 27 mmol/L (22-30); Chloride 102 mmol/L (98-107); Cholesterol 136 mg/dL (0-200); Estimated Glomerular Filt Rate > 60; Glucose 141 mg/dL (65-110); HDL Direct 47 mg/dL; Potassium 4.3 mmol/L (3.4-5.0); Sodium 138 mmol/L (137-145); Triglycerides 110 mg/dL (<150)
[2024-08-04 08:09] LABS: LDL Cholesterol Direct 71 mg/dL
== END 2024-08-04 07:10 | disposition home or self-care (01) ==
PROVIDERS: PCP Family Medicine; Visit Provider Family Medicine
DX: E11.9 Type 2 diabetes mellitus without complications (principal); E55.9 Vitamin D deficiency, unspecified; E66.9 Obesity, unspecified; E78.2 Mixed hyperlipidemia; E03.2 Hypothyroidism due to medicaments and other exogenous substances; I10 Essential (primary) hypertension
CPT/HCPCS: 36415; 80053; 80061; 82652; 83036; 84443; 85027

== ENCOUNTER 2024-12-23 06:52 | Outpatient (CLI) | payer MEDICARE, OTHER, SELFPAY ==
--- OUTSIDE RECORDS SUMMARY | 2024-12-23 06:55 | XMS_ITS | Encounter Summary ---
Author Organization [facility] Address [address] [place] [address] Care Team Providers Care Dehorner Name Role Phone Priscilla Glass DO Primary Care Provider Kyara Sommers MD Unavailable Encounter Details Date Type Department Care Team (Late st Contact Info) Description 03/11/2022 Documentation [facility] Surgeon [address] [place] [address] Ismael Malik Social History Tobacco Use Types Packs/Day Years Used Date Smoking Tobacco: Never Comments Unknown Sex and Gender Information Value Date Recorded Sex Assigned at Not on file Legal Sex Female 3:55 AM ANESTHESIOLOGY PHYSICIAN Gender Identity Not on file Sexual Orientation Not on file documented as of this encounter Plan of Treatment Not on file documented as of this encounter Visit Diagnoses Not on filedocumented in this encounter Care Teams Dehorner Relationship Specialty Start Date End Date Priscilla Glass DO PCP - General Family Medicine 01/03/22 Kyara Sommers MD [address] DIV IM MEDICAL ONCOLOGY, [address] [address] Surgeon Breast Surgery 07/10/23 documented as of this encounter
--- OUTSIDE RECORDS SUMMARY | 2024-12-23 06:55 | XMS_ITS | Clinical Summary ---
Author Organization [facility] Address [address] [place] [address] Care Team Providers Care Branch Officer Name Role Phone Priscilla Glass DO Primary Care Provider [phone] Bird-In-HandKyara ross MD Unavailable [phone] Allergies Active Allergy Reactions Criticality Noted Date Comments Meperidine Nausea & Vomiting Low 09/11/2023 Pseudoephedrine Palpitations Low 09/11/2023 Medications atorvastatin (LIPITOR) 10 mg tabletIndicatio ns:hyperlipidem ia,nightly Take 1 tablet (10 mg total) by mouth every other day 2 Active levothyroxine (SYNTHROID) 125 mcg tabletIndicatio ns:hypothyroidi sm Take 1 tablet (125 mcg total) by mouth cabin furnishings 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 before breakfast 2 Active lisinopriL (PRINIVIL,ZESTR IL) [...] 0.5 capsules (1,000 Units total) by mouth cabin furnishings installer before breakfast Active metoprolol XL (TOPROL-XL) 25 mg extended release tabletIndicatio ns:hypertension Take 0.5 tablets (12.5 mg total) by mouth every morning Active amLODIPine (Norvasc) 5 mg tablet Active raloxifene (EVISTA) 60 mg tablet TAKE 1 TABLET BY MOUTH EVERY DAY 90 tablet 3 Active Active Problems Problem Noted Date Diagnosed Date Encounter for screening mammogram for breast can cer 09/11/2023 At high risk for breast cancer 09/11/2023 Atypical lobular hyperplasia (ALH) of left breas t 05/17/2023 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 07/16/2022 Hypogammaglobulinemia 07/16/2022 Hyperparathyroidism 02/15/2022 Encounters Date Type Department Care Team Description 10/13/2024 12:28 PM CDT - 10/13/2024 11:59 PM CDT Hospital Encounter [facility] [address] [place] [address] Atypical lobular hyperplasia (ALH) of left breast; At high risk for breast cancer Discharge Disposition: Discharge to home or self care 10/13/2024 Results Follow-Up [facility] On[facility] [address] [place] [address] Matthieu, Kyara Adams MD MRI Breast Bilateral W WO Contrast from Last 3 Months Immunizations Immunization Administration [...] on file Legal Sex Female 3:55 AM MANAGER PROJECT Gender Identity Not on file Sexual Orientation Not on file Obstetrics History Para Term AB IAB SAB Ectopic Multiple Livin g Live Births 3 2 2 Date Outcome GA Total Labor Labor/2nd/3rd Weight Sex Type Anes PTL Madai A1 A5 Name Clin Term Term Comments Post Menopause Last Filed Vital Signs Vital Sign Reading Time Taken Comments Blood Pressure 136/78 04/29/2024 2:55 PM MANAGER PROJECT Pulse 61 04/29/2024 2:55 PM MANAGER PROJECT Temperature 36.8 C (98.2 F) 04/29/2024 2:55 PM MANAGER PROJECT Respiratory Rate 16 04/29/2024 2:55 PM MANAGER PROJECT Oxygen Saturation 99% 04/29/2024 2:55 PM MANAGER PROJECT Inhaled Oxygen Concentration - - Weight 100 kg (220 lb 6.4 oz) 04/29/2024 2:55 PM MANAGER PROJECT Height 165 cm (5' 4.96) 07/16/2023 10:39 AM MANAGER PROJECT Body Mass Index 36.72 07/16/2023 10:39 AM MANAGER PROJECT Plan of Treatment Health Maintenance Due Date Last Done Comments Colon Cancer Screening-Colonoscopy 1954 Depression Screening 1954 Hepatitis C Screening 1954 Osteoporosis Screening-Bone Density Scan 1954 DTaP/Tdap/Td Vaccine (1 - Tdap) 1965 Hepatitis B Screening 1972 Pneumococcal vaccine 65+ (1 of 1 - PCV) 2004 Zoster Vaccine (1 of 2) 2004 Well Visit 65+ 12/02/2019 Covid-19 Vaccine (5 2023-2 5 season) 2024 11/01/2021, 03/24/2021, 06/17/2020, Additional history exists Fall Risk Assessment 06/28/2024 06/28/2023 Influenza Vaccine (#1) 2025 Breast Cancer Screening-Mammogram 04/29/2025 04/29/2024, 03/19/2023, 02/26/2022, Additional history exists Medical Devices Implanted Type Area Relationship Advisor Device Identifier Shelf Expiration Date Model / Serial / Lot Simple[employer]ark Rigid End Hourglass Marker Breast Biopsy Titanium [id number] -[id number] - [id number] Implanted:Qty: 1 on 04/18/2023 at [facility] [employer] [id number] 09/05/2024 TRIMARK-E VIVA-2S-1 3 / / [id number] [employer] Ghiatas 20ga 20cm 7cm Beaded Needle Breast Wire Localization [id number] - [id number] Implanted:Qty: 1 on 06/28/2023 at [facility] Left: Breast [employer] [id number] / / Procedures Procedure Name Priority Date/Time Associated Diagnosis Comments MRI BREAST BILATERAL W WO CONTRAST Schedule Routine, Read Routine (OP Routine) 10/13/2024 1:38 PM CDT Atypical lobular hyperplasia (ALH) of left breast At high risk for breast cancer SCREENING MAMMOGRAM BILATERAL W CALOS Schedule Routine, Read Routine (OP Routine) 04/29/2024 1:17 PM MANAGER PROJECT Encounter for screening mammogram for breast cancer Breast cancer screening by mammogram from Last 3 Months or Most Recently Relevant to Health Maintenance Results * MRI Breast Bilateral W WO Contrast (10/13/2024 1:38 PM CDT) Anatomical Region Laterality Modality Breast Bilateral Magnetic Resonan ce 10/13/2024 2:14 PM CDT Impressions 10/13/2024 2:20 PM CDT No MR evidence of malignancy in either breast. OVERALL FINAL ASSESSMENT: BI-RADS Category 1: Negative. RECOMMENDATION: Annual screening mammography and breast MRI are recommended. Dictated by: Bk Walter M.D. The radiology attending physician has personally reviewed this study, and had reviewed and/or edited this written report and agrees with it. Electronically signed by: Divya Henry M.D. Narrative 10/13/2024 2:20 PM CDT EXAMINATION: 1. MRI EXAMINATION OF THE BREASTS WITH AND WITHOUT CONTRAST 2. 3D POST PROCESSING ON A DEDICATED 3D WORKSTATION HISTORY: High-risk Screening. 68-year-old woman with history of LEFT breast biopsy showing atypical ductal hyperplasia and atypical lobular hyperplasia status post excisional biopsy, currently taking raloxifene. The patient has a family history of breast cancer in a paternal aunt diagnosed in her 70s. The patient's estimated lifetime risk of breast cancer is 21%. TECHNIQUE: MRI examination of the breasts per breast tumor protocol with and without gadolinium contrast. A dedicated breast imaging coil was used. The images were transferred to a breast CAD system for 3D post processing and contrast kinetics analysis. CONTRAST: Gadoterate meglumine, 20 ml COMPARISON: Prior exams which date back to 11/12/2016, the most recent on 04/29/2024. Prior breast MRI on 10/07/2023. BREAST COMPOSITION: Scattered fibroglandular tissue BACKGROUND PARENCHYMAL ENHANCEMENT: Mild FINDINGS: There is no suspicious enhancing mass or non-mass enhancement in either breast. No abnormally enlarged lymph nodes are identified in the visualized portions of either axilla. Procedure Note Divya Henry MD - 10/13/2024 EXAMINATION: 1. MRI EXAMINATION OF THE BREASTS WITH AND WITHOUT CONTRAST 2. 3D POST PROCESSING ON A DEDICATED 3D WORKSTATION HISTORY: High-risk Screening. 68-year-old woman with history of LEFT breast biopsy showing atypical ductal hyperplasia and atypical lobular hyperplasia status post excisional biopsy, currently taking raloxifene. The patient has a family history of breast cancer in a paternal aunt diagnosed in her 70s. The patient's estimated lifetime risk of breast cancer is 21%. TECHNIQUE: MRI examination of the breasts per breast tumor protocol with and without gadolinium contrast. A dedicated breast imaging coil was used. The images were transferred to a breast CAD system for 3D post processing and contrast kinetics analysis. CONTRAST: Gadoterate meglumine, 20 ml COMPARISON: Prior exams which date back to 11/12/2016, the most recent on 04/29/2024. Prior breast MRI on 10/07/2023. BREAST COMPOSITION: Scattered fibroglandular tissue BACKGROUND PARENCHYMAL ENHANCEMENT: Mild FINDINGS: There is no suspicious enhancing mass or non-mass enhancement in either breast. No abnormally enlarged lymph nodes are identified in the visualized portions of either axilla. IMPRESSION: No MR evidence of malignancy in either breast. OVERALL FINAL ASSESSMENT: BI-RADS Category 1: Negative. RECOMMENDATION: Annual screening mammography and breast MRI are recommended. Dictated by: Bk Walter M.D. The radiology attending physician has personally reviewed this study, and had reviewed and/or edited this written report and agrees with it. Electronically signed by: Divya Henry M.D. Kyara Sommers MD IMG MRI PROCEDURES Final Re sult * Screening Mammogram Bilateral W Calos (04/29/2024 1:17 PM MANAGER PROJECT) Anatomical Region Laterality Modality Breast Bilateral Mammography Impressions 04/29/2024 3:44 PM MANAGER PROJECT BI-RADS ATLAS category (overall): 2 - Benign There is no mammographic evidence of malignancy. A 1 year screening mammogram is recommended. The patient has been or will be contacted. We recommend annual screening mammography for women at average risk of breast cancer beginning at age 40, based on guidelines of the [place] [employer] (ACR Practice Parameter for the Performance of Screening and Diagnostic Mammography) and [place] [employer]. For women with and elevated risk of breast cancer, please refer to the ACR Practice Parameter for specific screening recommendations. The patient will be entered into a reminder system with a target due date of 1 year for her next screening exam. Narrative 04/29/2024 3:44 PM MANAGER PROJECT Screening Mammogram Bilateral W Calos: 04/29/24 The [...] Most Recently Relevant to Health Maintenance Insurance [facility] MEDICARE MEDICARE [employer] MEDICARE [facility] MEDICARE [facility] Advance Directives For more information, please contact: [phone] * Full Code (Latest Code Status on File) Date Activated Date Inactivated Comments 04/06/2022 12:58 PM 04/06/2022 8:41 PM Care Teams Branch Officer Relationship Specialty Start Date End Date ChastitybarbaraPriscilla DO PCP - General Family Medicine 01/03/22 Kyara Sommers MD [address] [facility] [address] [address] [address] DIV MEDICAL ONCOLOGY, [facility] [place] [address] Surgeon Breast Surgery 07/10/23
--- OUTSIDE RECORDS SUMMARY | 2024-12-23 06:55 | XMS_ITS | Referral Summary ---
Author Organization [facility] Address [address] [place] [address] Care Team Providers Care Bpm Developer Name Role Phone Priscilla Glass DO Primary Care Provider [phone] Kyara Sommers MD Unavailable [phone] Encounters Date Type Department Care Team Description 10/13/2024 Results Follow-Up [facility] Oncology [address] [place] [address] Kyara Sommers MD MRI Breast Bilateral W WO Contrast 10/13/2024 12:28 PM CDT - 10/13/2024 11:59 PM CDT Hospital Encounter [facility] [address] [place] [address] Atypical lobular hyperplasia (ALH) of left breast; At high risk for breast cancer Discharge Disposition: Discharge to home or self care from Last 3 Months Allergies Active Allergy Reactions Criticality Noted Date Comments Meperidine Nausea & Vomiting Low 09/11/2023 Pseudoephedrine Palpitations Low 09/11/2023 Medications atorvastatin (LIPITOR) 10 mg tabletIndicatio ns:hyperlipidem ia,nightly Take 1 tablet (10 mg total) by mouth every other day 2 Active levothyroxine (SYNTHROID) 125 mcg tabletIndicatio ns:hypothyroidi sm Take 1 tablet (125 mcg total) by mouth residential real estate agent before breakfast 2 Active lisinopriL (PRINIVIL,ZESTR IL) [...] 0.5 capsules (1,000 Units total) by mouth residential real estate agent before breakfast Active metoprolol XL (TOPROL-XL) 25 mg extended release tabletIndicatio ns:hypertension Take 0.5 tablets (12.5 mg total) by mouth every morning Active amLODIPine (Norvasc) 5 mg tablet Active raloxifene (EVISTA) 60 mg tablet TAKE 1 TABLET BY MOUTH EVERY DAY 90 tablet 3 5 Active Active Problems Problem Noted Date Diagnosed [...] on file 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 Gender Identity Not on file Sexual Orientation Not on file Last Filed Vital Signs Vital Sign Reading Time Taken Comments Blood Pressure 136/78 04/29/2024 2:55 PM LOCAL COMPANY FLATBED TRUCK DRIVER Pulse 61 04/29/2024 2:55 PM LOCAL COMPANY FLATBED TRUCK DRIVER Temperature 36.8 C (98.2 F) 04/29/2024 2:55 PM LOCAL COMPANY FLATBED TRUCK DRIVER Respiratory Rate 16 04/29/2024 2:55 PM LOCAL COMPANY FLATBED TRUCK DRIVER Oxygen Saturation 99% 04/29/2024 2:55 PM LOCAL COMPANY FLATBED TRUCK DRIVER Inhaled Oxygen Concentration - - Weight 100 kg (220 lb 6.4 oz) 04/29/2024 2:55 PM LOCAL COMPANY FLATBED TRUCK DRIVER Height 165 cm (5' 4.96) 07/16/2023 10:39 AM LOCAL COMPANY FLATBED TRUCK DRIVER Body Mass Index 36.72 07/16/2023 10:39 AM LOCAL COMPANY FLATBED TRUCK DRIVER Plan of Treatment Not on file Medical Devices Implanted Type Area Physician Relations Representative Device Identifier Shelf Expiration Date Model / Serial / Lot [employer] TrimPolymer Vision Rigid End Hourglass Marker Breast Biopsy Titanium [id number] -[id number] - [id number] Implanted:Qty: 1 on 04/18/2023 at [facility] [employer] [id number] 09/05/2024 TRIMARK-E VIVA-2S-1 3 / / [id number] Bard Peripheral Vascular Ghiatas 20ga 20cm 7cm Beaded Needle Breast Wire Localization [id number] - [id number] Implanted:Qty: 1 on 06/28/2023 at [facility] Left: Breast Bard Peripheral Vascular [id number] / / Procedures Procedure Name Priority Date/Time Associated Diagnosis Comments MRI BREAST BILATERAL W WO CONTRAST Schedule Routine, Read Routine (OP Routine) 10/13/2024 1:38 PM CDT Atypical lobular hyperplasia (ALH) of left breast At high risk for breast cancer SCREENING MAMMOGRAM BILATERAL W JESSICA Schedule Routine, Read Routine (OP Routine) 04/29/2024 1:17 PM LOCAL COMPANY FLATBED TRUCK DRIVER Encounter for screening mammogram for breast cancer [...] Re sult * Screening Mammogram Bilateral W Jessica (04/29/2024 1:17 PM LOCAL COMPANY FLATBED TRUCK DRIVER) Anatomical Region Laterality Modality Breast Bilateral Mammography Impressions 04/29/2024 3:44 PM LOCAL COMPANY FLATBED TRUCK DRIVER BI-RADS ATLAS category (overall): 2 - Benign There is no mammographic evidence of malignancy. A 1 year screening mammogram is recommended. The patient has been or will be contacted. We recommend annual screening mammography for women at average risk of breast cancer beginning at age 40, based on guidelines of the [employer] (ACR Practice Parameter for the Performance of Screening and Diagnostic Mammography) and [place]nec[employer]. For women with and elevated risk of breast cancer, please refer to the ACR Practice Parameter for specific screening recommendations. The patient will be entered into a reminder system with a target due date of 1 year for her next screening exam. Narrative 04/29/2024 3:44 PM LOCAL COMPANY FLATBED TRUCK DRIVER Screening Mammogram Bilateral W Jessica: 04/29/24 The study was acquired using full [...] 06/28/2023 Mammo Guided Localization Breast Left 04/18/2023 Jessica Post Clip Placement Left 04/18/2023 Stereotactic Breast Biopsy Left 04/02/2023 Diagnostic Mammogram Left W Jessica 03/19/2023 Screening Mammogram Bilateral W Jessica 02/26/2022 Screening Mammogram Bilateral W Jessica 01/12/2021 Screening Mammogram Bilateral W Jessica 12/22/2019 Screening Mammogram Bilateral W Jessica BREAST TISSUE: There are scattered areas of [...] Most Recently Relevant to Health Maintenance Insurance [facility] MEDICARE MEDICARE [facility] MEDICARE [employer]ICARE [employer] Advance Directives For more information, please contact: [phone] * Full Code (Latest Code Status on File) Date Activated Date Inactivated Comments 04/06/2022 12:58 PM 04/06/2022 8:41 PM Care Teams Bpm Developer Relationship Specialty Start Date End Date Priscilla Glass DO PCP - General Family Medicine 01/03/22 Kyara Sommers MD [address] [facility] [address] DIV IM MEDICAL ONCOL[facility]Y, [facility] [address] [place] [address] Surgeon Breast Surgery 07/10/23
--- OUTSIDE RECORDS SUMMARY | 2024-12-23 06:55 | XMS_ITS | Encounter Summary ---
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
[2024-12-23 07:55] LABS: Hematocrit 39.4 % (37.0-47.0); Hemoglobin 13.0 g/dL (12.0-15.0); Mean Corpuscular HGB Conc 33.0 g/dl (32-36); Mean Corpuscular Hemoglobin 29.4 pg (26-34); Mean Corpuscular Volume 89.1 fl (80-100); Platelet Count Result 216 k/mm3 (150-375); Red Blood Count 4.42 M/mm3 (4.2-5.4); White Blood Count 8.4 K/mm3 (4.5-10.0)
[2024-12-23 08:03] LABS: Hemoglobin A1C 6.8 % (<5.7)
[2024-12-23 08:16] LABS: Alanine Aminotransferase 37 U/L (6-35); Albumin Level 3.8 g/dL (3.5-5.1); Alkaline Phosphatase 59 U/L (38-126); Anion Gap 6 mmol/L (4-12); Aspartate Amino Transferase 42 U/L (14-36); Bilirubin,Total 0.9 mg/dL (0.2-1.3); Blood Urea Nitrogen 20 mg/dL (7-17); Calcium 9.2 mg/dL (8.4-10.2); Carbon Dioxide 24 mmol/L (22-30); Chloride 106 mmol/L (98-107); Cholesterol 150 mg/dL (0-200); Estimated Glomerular Filt Rate > 60; Glucose 141 mg/dL (65-110); HDL Direct 46 mg/dL; Potassium 4.5 mmol/L (3.4-5.0); Sodium 136 mmol/L (137-145); Total Protein 6.1 g/dL (6.3-8.2); Triglycerides 137 mg/dL (<150)
[2024-12-23 08:53] LABS: Thyroid Stimulating Hormone 1.180 uIU/mL (0.465-4.680)
== END 2024-12-23 06:53 | disposition home or self-care (01) ==
PROVIDERS: PCP Family Medicine; Visit Provider Family Medicine
DX: E55.9 Vitamin D deficiency, unspecified (principal); I10 Essential (primary) hypertension; E78.2 Mixed hyperlipidemia; E11.9 Type 2 diabetes mellitus without complications; E03.2 Hypothyroidism due to medicaments and other exogenous substances; E66.9 Obesity, unspecified
CPT/HCPCS: 36415; 80053; 80061; 83036; 84443; 85027

== ENCOUNTER 2025-04-14 06:50 | Outpatient (CLI) | payer MEDICARE, OTHER, SELFPAY ==
--- OUTSIDE RECORDS SUMMARY | 2025-04-14 06:56 | XMS_ITS | Encounter Summary ---
Author Organization [facility] Healthcare Address [address] [place] [address] Care Team Providers Care Extractor Loader And Unloader Name Role Phone Priscilla Glass DO Primary Care Provider Kyara Sommers MD Unavailable [phone] Encounter Details Date Type Department Care Team (Late st Contact Info) Description 03/11/2022 Documentation [facility] Surgeon [address] [place] [address] Ismael Malik Social History Tobacco Use Types Packs/Day Years Used Date Smoking Tobacco: Never Comments Unknown Sex and Gender Information Value Date Recorded Sex Assigned at Not on file 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
--- OUTSIDE RECORDS SUMMARY | 2025-04-14 06:56 | XMS_ITS | Encounter Summary ---
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
--- OUTSIDE RECORDS SUMMARY | 2025-04-14 06:56 | XMS_ITS | Clinical Summary ---
Author Organization [facility] Address [address] [place] [address] Care Team Providers Care Electrical Engineering Professor Name Role Phone Priscilla Glass DO Primary Care Provider [phone] [place] MD Unavailable [phone] Allergies Active Allergy Reactions Criticality Noted Date Comments Meperidine Nausea & Vomiting Low 09/11/2023 Pseudoephedrine Palpitations Low 09/11/2023 Medications atorvastatin (LIPITOR) 10 mg tabletIndicatio ns:hyperlipidem ia,nightly Take 1 tablet (10 mg total) by mouth every other day 2 Active levothyroxine (SYNTHROID) 125 mcg tabletIndicatio ns:hypothyroidi sm Take 1 tablet (125 mcg total) by mouth sonar watchstander before breakfast 2 Active lisinopriL (PRINIVIL,ZESTR IL) [...] 0.5 capsules (1,000 Units total) by mouth sonar watchstander before breakfast Active metoprolol XL (TOPROL-XL) 25 [...] Encounters Date Type Department Care Team Description 02/02/2025 12:30 PM CDT Office Visit [facility] Medicine Allergy and Immunology [address] [facility] [address] [place] [address] Jg Jacobo MD Hypogammaglobulinemia (Primary Dx); High CD4 T cell count determined by flow cytometry 01/25/2025 Telephone [facility] Medicine Allergy and Immunology [address] [facility] [address] [place] [address] Jg Jacobo MD from Last 3 Months Immunizations Immunization Administration Dates Next Due Moderna SARS-CoV-2 Monovalen t Vaccination (12+ YRS) 11/01/2021 Pfizer SARS-CoV-2 Monovalent Vaccination (12+ Yrs) PURPLE 03/24/2021,06/17/2020,05/27/2020 Surgical History Surgery Date Site/Laterality Comments BREAST BIOPSY 12/30/2018 Left CHOLECYSTECTOMY 06/10/1983 - 06/09/1984 DILATION AND CURETTAGE OF UTERUS TONSILLECTOMY BREAST BIOPSY 04/18/2023 Left PARATHYROIDECTOMY 06/10/2021 - 06/09/2022 Medical History Medical History Date Comments Hypertension Diabetes mellitus Thyroid disease Motion sickness Family History Medical History Relation Name Comments Breast cancer Cousin , age 77y, ID Father Diabetes Father Breast cancer Father's Sister [...] on file 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 Gender Identity Not on file Sexual Orientation Not on file Obstetrics History Para Term AB IAB SAB Ectopic Multiple Livin g Live Births 3 2 2 Date Outcome GA Total Labor Labor/2nd/3rd Weight Sex Type Anes PTL Madai A1 A5 Name Clin Term Term Comments Post Menopause Last Filed Vital Signs Vital Sign Reading Time Taken Comments Blood Pressure 136/78 02/02/2025 12:55 PM CDT Pulse 63 02/02/2025 12:55 PM CDT Temperature 36.8 C (98.2 F) 02/02/2025 12:55 PM CDT Respiratory Rate 16 04/29/2024 2:55 PM SENIOR DATA MINING ANALYST Oxygen Saturation 99% 02/02/2025 12:55 PM CDT Inhaled Oxygen Concentration - - Weight 99.8 kg (220 lb) 02/02/2025 12:55 PM CDT Height 165 cm (5' 4.96) 02/02/2025 12:55 PM CDT Body Mass Index 36.65 02/02/2025 12:55 PM CDT Plan of Treatment Health Maintenance Due Date Last Done Comments Colon Cancer Screening-Colonoscopy 1954 Depression Screening 1954 Hepatitis C Screening 1954 Osteoporosis Screening-Bone Density Scan 1954 Hepatitis B Screening 1972 Pneumococcal vaccine 65+ (1 of 1 - PCV) 2004 Zoster Vaccine (2 of 3) 09/11/2015 07/17/2015 Well Visit 65+ 12/02/2019 Fall Risk Assessment 06/28/2024 06/28/2023 DTaP/Tdap/Td Vaccine (2 - Td or Tdap) 12/09/2024 12/09/2014 Covid-19 Vaccine (5 - 2024-2 6 season) 2025 11/01/2021, 03/24/2021, 06/17/2020, Additional history exists Influenza Vaccine (#1) 2025 , 04/07/2021, 04/12/2020, Additional history exists Breast Cancer Screening-Mammogram 04/29/2025 04/29/2024, 03/19/2023, 02/26/2022, Additional history exists Medical Devices Implanted Type Area Roller Hand Device Identifier Shelf Expiration Date Model / Serial / Lot [employer] Trimark Rigid End Hourglass Marker Breast Biopsy Titanium [id number] -[id number] - [id number] Implanted:Qty: 1 on 04/18/2023 at [facility] [employer] [id number] 09/05/2024 TRIMARK-E VIVA-2S-1 3 / / [id number] Bard Peripheral Vascular Ghiatas 20ga 20cm 7cm Beaded Needle Breast Wire Localization [id number] - [id number] Implanted:Qty: 1 on 06/28/2023 at [facility] Left: Breast Bard Peripheral Vascular [id number] / / Procedures Procedure Name Priority Date/Time Associated Diagnosis Comments STREP PNEUMONIAE ANTIBODY SEROTYPES Routine 01/27/2025 6:46 AM CDT IMMUNOGLOBULIN PROFILE Routine 01/27/2025 6:46 AM CDT Hypogammaglobulin emia SCREENING MAMMOGRAM BILATERAL W CALOS Schedule Routine, Read Routine (OP Routine) 04/29/2024 1:17 PM SENIOR DATA MINING ANALYST Encounter for screening mammogram for breast cancer Breast cancer screening by mammogram from Last 3 Months or Most Recently Relevant to Health Maintenance Results * (ABNORMAL) Immunoglobulin profile (01/27/2025 6:46 AM CDT) Immunoglobulin A 153 70 - 320 mg/dL [facility] Immunoglobulin G 533(L) 600 - 1,540 mg/dL [facility] Immunoglobulin M 39(L) 50 - 300 mg/dL [facility] Blood 01/27/2025 6:46 AM CDT 01/27/2025 6:47 AM CDT Pola Flood MD PhD LAB BLOOD ORDERABLES Final Result Performing Organization Address City/State/[facility] Co de Phone Number [facility] [address] [facility] [place] [address] * Strep pneumoniae antibody serotypes (01/27/2025 6:46 AM CDT) S. pneumo Type 1 (1) 3.2 [facility], S. pneumo Type 2 (2) <0.3 [facility], S. pneumo Type 3 (3) <0.3 [facility], S. pneumo Type 4 (4) 2.8 [facility], S. pneumo Type 5 (5) 1.7 [facility], S. pneumo Type 8 (8) <0.3 [facility], S. pneumo Type 9N (9) <0.3 [facility], S. pneumo Type 12F (12) 0.6 [facility]. pneumo Type 14 (14) 0.6 [facility], S. pneumo Type 17F (17) 4.7 [facility], S. pneumo Type 19F (19) <0.3 [facility], S. pneumo Type 20 (20) <0.3 [facility], S. pneumo Type 22F (22) 1.0 [facility], S. pneumo Type 23F (23) 0.3 [facility] S. pneumo Type 6B (26) 0.8 [facility], S. pneumo Type 10A (34) 2.1 [facility], S. pneumo Type 11A (43) 1.0 [facility], S. pneumo Type 7F (51) 2.8 [facility], S. pneumo Type 15B (54) 3.3 [facility], S. pneumo Type 18C (56) 1.0 [facility], S. pneumo Type 19A (57) 4.1 [facility], S. pneumo Type 9V (68) 0.7 [facility], S. pneumo Type 33F (70) 3.1 [facility], Comment: Serologic correlates of protection against pneumococcal disease have not been rigorously established for all patient populations. Published data and expert consensus (including WHO) suggest protection from invasive disease usually occurs at levels >or =0.3-0.50 mcg/mL for healthy children receiving pneumococcal conjugate vaccines. Higher titers may be necessary to protect from non-invasive infection (e.g., pneumonia, otitis, sinusitis). Expert opinion suggests that a cut-off of >= 1.3 mcg/mL may be a more relevant value to assess antibody responses after pneumococcal polysaccharide vaccines or for immunocompromised patients. In addition to antibody quantity, protection also depends on antibody avidity and opsonophagocytic activity. Some experts consider that post-vaccination (4-6 weeks) IgG seroconversion and/or 2- to 4-fold rise in IgG titers for >50% to 70% of vaccine serotypes demonstrates a normal post-vaccine serologic response. Persons with high initial serotype-specific titers may have less robust responses. [employer] uses a multi-analyte immunodetection (MAID) method. The method employs the Luminex flow cytometric system which measures multiple analytes simultaneously. The FDA standard reference serum 89-S is used as the calibration standard. Results are reported in mcg/mL. This assay detects all of the 23 of the serotypes in the 23-valent polysaccharide vaccine and 12 of the 13 serotypes in the 13-valent conjugate vaccine. This test was developed and its analytical performance characteristics have been determined by [employer]. It has not been cleared or approved by FDA. This assay has been validated pursuant to the CLIA regulations and used for clinical purposes. For additional information, please refer to http://education.Itaro/faq/GCN754 (This link is being provided for informational/ educational purposes only.) 01/27/2025 6:46 AM CDT 01/27/2025 6:47 AM CDT Pola Flood MD PhD LAB BLOOD ORDERABLES Final Result [facility] [employer], [address] [place] [address] * Screening Mammogram Bilateral W Calos (04/29/2024 1:17 PM SENIOR DATA MINING ANALYST) Anatomical Region Laterality Modality Breast Bilateral Mammography Impressions 04/29/2024 3:44 PM SENIOR DATA MINING ANALYST BI-RADS ATLAS category (overall): 2 - Benign There is no mammographic evidence of malignancy. A 1 year screening mammogram is recommended. The patient has been or will be contacted. We recommend annual screening mammography for women at average risk of breast cancer beginning at age 40, based on guidelines of the [place] [employer] (ACR Practice Parameter for the Performance of Screening and Diagnostic Mammography) and [place] [employer] and Gynecologists. For women with and elevated risk of breast cancer, please refer to the ACR Practice Parameter for specific screening recommendations. The patient will be entered into a reminder system with a target due date of 1 year for her next screening exam. Narrative 04/29/2024 3:44 PM SENIOR DATA MINING ANALYST Screening Mammogram Bilateral W Calos: 04/29/24 The [...] Most Recently Relevant to Health Maintenance Insurance [facility] MEDICARE MEDICARE [facility] MEDICARE [employer]ICARE [employer] Advance Directives For more information, please contact: [phone] * Full Code (Latest Code Status on File) Date Activated Date Inactivated Comments 04/06/2022 12:58 PM 04/06/2022 8:41 PM Care Teams Electrical Engineering Professor Relationship Specialty Start Date End Date Priscilla Glass DO PCP - General Family Medicine 01/03/22 Kyara Sommers MD [address] [facility] [address] DIV MEDICAL ONCOLOGY, [facility] [address] [place] [address] Surgeon Breast Surgery 07/10/23
[2025-04-14 08:14] LABS: Alanine Aminotransferase 37 U/L (6-35); Albumin Level 3.8 g/dL (3.5-5.1); Alkaline Phosphatase 73 U/L (38-126); Anion Gap 6 mmol/L (4-12); Aspartate Amino Transferase 37 U/L (14-36); Bilirubin,Total 0.7 mg/dL (0.2-1.3); Blood Urea Nitrogen 23 mg/dL (7-17); Calcium 8.8 mg/dL (8.4-10.2); Carbon Dioxide 26 mmol/L (22-30); Chloride 102 mmol/L (98-107); Cholesterol 143 mg/dL (0-200); Estimated Glomerular Filt Rate > 60; Glucose 128 mg/dL (65-110); HDL Direct 43 mg/dL; Potassium 4.3 mmol/L (3.4-5.0); Sodium 134 mmol/L (137-145); Total Protein 6.1 g/dL (6.3-8.2); Triglycerides 113 mg/dL (<150)
[2025-04-14 08:28] LABS: Hemoglobin A1C 6.3 % (<5.7)
[2025-04-14 08:50] LABS: Thyroid Stimulating Hormone 0.324 uIU/mL (0.465-4.680)
[2025-04-14 11:35] LABS: MALB Creatinine Ratio 5.5 mg/g (0-30)
[2025-04-14 11:36] LABS: Free T4 Free Thyroxine 2.13 ng/dL (0.78-2.19)
== END 2025-04-14 06:51 | disposition home or self-care (01) ==
PROVIDERS: PCP Family Medicine; Visit Provider Nurse Practitioner
DX: E78.2 Mixed hyperlipidemia (principal); E11.9 Type 2 diabetes mellitus without complications; E55.9 Vitamin D deficiency, unspecified; E03.2 Hypothyroidism due to medicaments and other exogenous substances
CPT/HCPCS: 36415; 80053; 80061; 82043; 82306; 83036; 84439; 84443

== ENCOUNTER 2025-06-09 07:04 | Outpatient (CLI) | payer MEDICARE, OTHER, SELFPAY ==
--- OUTSIDE RECORDS SUMMARY | 2025-06-09 07:07 | XMS_ITS | Encounter Summary ---
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
--- OUTSIDE RECORDS SUMMARY | 2025-06-09 07:07 | XMS_ITS | Clinical Summary ---
Author Organization [facility] Address [address] [place] [address] Care Team Providers Care Inspector [employer]icon[employer] Wafer Name Role Phone Priscilla Glass DO Primary Care Provider [phone] MatthieuKyara ross MD Unavailable [phone] Allergies Active Allergy Reactions Criticality Noted Date Comments Meperidine Nausea & Vomiting Low 09/11/2023 Pseudoephedrine Palpitations Low 09/11/2023 Medications atorvastatin (LIPITOR) 10 mg tabletIndicatio ns:hyperlipidem ia,nightly Take 1 tablet (10 mg total) by mouth every other day 2 Active levothyroxine (SYNTHROID) 125 mcg tabletIndicatio ns:hypothyroidi sm Take 1 tablet (125 mcg total) by mouth assembler seat before breakfast 2 Active lisinopriL (PRINIVIL,ZESTR IL) [...] 0.5 capsules (1,000 Units total) by mouth assembler seat before breakfast Active metoprolol XL (TOPROL-XL) 25 mg extended release tabletIndicatio ns:hypertension Take 0.5 tablets (12.5 mg total) by mouth every morning Active amLODIPine (Norvasc) 5 mg tablet Active raloxifene (EVISTA) 60 mg tablet TAKE 1 TABLET BY MOUTH EVERY DAY 90 tablet 3 Active Active Problems Problem Noted Date Diagnosed Date Breast cancer screening, high risk patient 05/05 Encounter for screening mammogram for breast can cer 09/11/2023 At high risk for breast cancer 09/11/2023 Atypical lobular hyperplasia (ALH) of left breas t 05/17/2023 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 07/16/2022 Hypogammaglobulinemia 07/16/2022 Hyperparathyroidism 02/15/2022 Encounters Date Type Department Care Team Description 05/05/2025 2:40 PM KILN CHARGER Office Visit [facility] Medicine Physicians [facility] Oncology [address] [place] [address] [address] [place] [address] Kyara Sommers MD Atypical lobular hyperplasia (ALH) of left breast (Primary Dx); Breast cancer screening by mammogram; At high risk for breast cancer; Breast cancer screening, high risk patient 05/05/2025 1:22 PM KILN CHARGER - 05/05/2025 11:59 PM KILN CHARGER Hospital Encounter [facility] Medical Office Bld[facility] [address] [place] [address] Breast cancer screening by mammogram; Encounter for screening mammogram for breast cancer Discharge Disposition: Discharge to home or self care 05/05/2025 Results Follow-Up [facility] Medicine Physicians [facility] Oncology [address] [place] [address] [address] [place] [address] Kyara Sommers MD Screening Mammogram Bilateral W Jessica from Last 3 Months Immunizations Immunization Administration [...] Comments Breast cancer Cousin , age 77y, [place] Father Diabetes Father Breast cancer Father's Sister [...] on file Legal Sex Female 3:55 AM KILN CHARGER Gender Identity Not on file Sexual Orientation Not on file Obstetrics History Para Term AB IAB SAB Ectopic Multiple Livin g Live Births 3 2 2 Date Outcome GA Total Labor Labor/2nd/3rd Weight Sex Type Anes PTL Madai A1 A5 Name Clin Term Term Comments Post Menopause Last Filed Vital Signs Vital Sign Reading Time Taken Comments Blood Pressure 129/79 05/05/2025 1:49 PM KILN CHARGER Pulse 69 05/05/2025 1:49 PM KILN CHARGER Temperature 36.7 C (98 F) 05/05/2025 1:49 PM KILN CHARGER Respiratory Rate 18 05/05/2025 1:49 PM KILN CHARGER Oxygen Saturation 98% 05/05/2025 1:49 PM KILN CHARGER Inhaled Oxygen Concentration - - Weight 96.7 kg (213 lb 3 oz) 05/05/2025 1:49 PM KILN CHARGER Height 165 cm (5' 4.96) 05/05/2025 1:49 PM KILN CHARGER Body Mass Index 35.52 05/05/2025 1:49 PM KILN CHARGER Plan of Treatment Health Maintenance Due Date Last Done Comments Colon Cancer Screening-Colonoscopy 1954 Depression Screening 1954 Hepatitis C Screening 1954 Osteoporosis Screening-Bone Density Scan 1954 Hepatitis B Screening 1972 Pneumococcal vaccine 65+ (1 of 1 - PCV) 2004 Zoster Vaccine (2 of 3) 09/11/2015 07/17/2015 Well Visit 65+ 12/02/2019 Fall Risk Assessment 06/28/2024 06/28/2023 Covid-19 Vaccine (5 - 2024-2 6 season) 2025 11/01/2021, 03/24/2021, 06/17/2020, Additional history exists Breast Cancer Screening-Mammogram 05/05/2026 05/05/2025, 04/29/2024, 03/19/2023, Additional history exists DTaP/Tdap/Td Vaccine (3 - Td or Tdap) 02/04/2035 02/04/2025, 12/09/2014 Influenza Vaccine Completed 03/17/2025, , 04/03/2023, Additional history exists Medical Devices Implanted Type Area Material Planner Device Identifier Shelf Expiration Date Model / Serial / Lot [employer] Rigid End Hourglass Marker Breast Biopsy Titanium [id number] - [id number] Implanted:Qty: 1 on 04/18/2023 at [facility] [employer] [id number] 09/05/2024 TRIMARK-E [id number]-2S-1 3 / / [id number] [employer] Ghiatas 20ga 20cm 7cm Beaded Needle Breast Wire Localization [id number] - [id number] Implanted:Qty: 1 on 06/28/2023 at [facility] Left: Breast [employer] [id number] / / Procedures Procedure Name Priority Date/Time Associated Diagnosis Comments SCREENING MAMMOGRAM BILATERAL W JESSICA Schedule Routine, Read Routine (OP Routine) 05/05/2025 1:40 PM KILN CHARGER Breast cancer screening by mammogram Encounter for screening mammogram for breast cancer from Last 3 Months Results * Screening Mammogram Bilateral W Jessica (05/05/2025 1:40 PM KILN CHARGER) Anatomical Region Laterality Modality Breast Bilateral Mammography Impressions 05/05/2025 4:01 PM KILN CHARGER Bilateral No evidence of malignancy in either breast. OVERALL BI-RADS FINAL ASSESSMENT: 1 - Negative RECOMMENDATION: Recommend bilateral annual screening mammography. Narrative 05/05/2025 4:01 PM KILN CHARGER EXAMINATION: Screening Mammogram Bilateral W Jessica: 05/05/2025 COMPARISON: Relevant prior studies available at the time of interpretation were reviewed, including the most recent mammogram on: 04/29/2024. TECHNIQUE: Mammography was performed with 2D and 3D digital breast tomosynthesis (DBT) images. CAD was utilized. BREAST PARENCHYMAL COMPOSITION: There are scattered areas of fibroglandular density. FINDINGS: Bilateral There is no suspicious mass, calcification, or architectural distortion in either breast. There are 2 biopsy marker clips in the left breast. Kyara Sommers MD IMG MAMMO PROCEDURES Final Result from Last 3 Months Insurance [facility] MEDICARE MEDICARE [employer] MEDICARE [facility] MEDICARE [facility] Member Subscriber Plan / Payer (Ef fective 2021-Present) Name:Martine Thorpe Relation to Subscriber:Self Name:Martine Thorpe Payer ID:[id number] Group ID:Not on file Type:[employer] Address: [address] [place] [id number] Advance Directives For more information, please contact: [phone] * Full Code (Latest Code Status on File) Date Activated Date Inactivated Comments 04/06/2022 12:58 PM 04/06/2022 8:41 PM Care Teams Inspector Semiconductor Wafer Relationship Specialty Start Date End Date Priscilla Glass DO PCP - General Family Medicine 01/03/22 Kyara Sommers MD Surgeon Breast Surgery 07/10/23
--- OUTSIDE RECORDS SUMMARY | 2025-06-09 07:07 | XMS_ITS | Encounter Summary ---
Author Organization [facility] Address [address] [place] [address] Phone Care Team Providers Care Chain Builder Loom Control Name Role Phone Priscilla Glass DO Primary Care Provider [phone] Kyara Sommers MD Unavailable [phone] Encounter Details Date Type Department Care Team (Late st Contact Info) Description 05/05/2025 Results Follow-Up [facility] Medicine Physicians [facility] Oncology [address] [place] [address] [address] [place] [address] Kyara Sommers MD [address] [place], [place] [id number] Screening Mammogram Bilateral W Calos Social History Tobacco Use Types Packs/Day Years Used Date Smoking Tobacco: Never Smokeless Tobacco: Never AUDIT-C Answer Date Recorded Q1: How often [...] on file Legal Sex Female 3:55 AM THREAD REELER Gender Identity Not on file Sexual Orientation Not on file documented as of this encounter Plan of Treatment Not on file documented as of this encounter Visit Diagnoses Not on filedocumented in this encounter Care Teams Chain Builder Loom Control Relationship Specialty Start Date End Date Priscilla Glass DO PCP - General Family Medicine 01/03/22 Kyara Sommers MD Surgeon Breast Surgery 07/10/23 documented as of this encounter
[2025-06-09 08:06] LABS: Thyroid Stimulating Hormone 2.110 uIU/mL (0.465-4.680)
[2025-06-09 09:29] LABS: Free T4 Free Thyroxine 1.54 ng/dL (0.78-2.19)
== END 2025-06-09 07:05 | disposition home or self-care (01) ==
LOC: ANHLAB 07:05
PROVIDERS: PCP Family Medicine; Visit Provider Family Medicine
DX: E03.2 Hypothyroidism due to medicaments and other exogenous substances (principal)
CPT/HCPCS: 36415; 84439; 84443